=== PATIENT | female | born 1930 | race Caucasian/White ===

== ENCOUNTER 2018-01-19 17:13 | Inpatient (IN) | payer OTHER, MEDICARE ==
[~2018-01-19] VITALS: Ht 157.5 cm; Wt 53.3 kg
[2018-01-19 18:23] LABS: HEMATOCRIT 33.6 % (37-47); HEMOGLOBIN 11.6 g/dL (12.0-16.0); MEAN CELL VOLUME 80.4 fL (80-100); MEAN CORPUSCULAR HEMOGLOBIN 27.8 pg (25-34); MEAN CORPUSCULAR HGB CONC 34.5 g/dl (32-36); MEAN PLATELET VOLUME 8.6 fL (7.4-10.4); PLATELET COUNT 456 K/uL (130-400); RED CELL DISTRIBUTION WIDTH CV 15.2 % (11.5-14.5); RED CELL DISTRIBUTION WIDTH SD 44.8 fL (36.4-46.3)
[2018-01-19 18:36] LABS: PTT PATIENT 27.9 SECONDS (21.0-31.0)
[2018-01-19 18:45] LABS: CALCIUM 9.3 mg/dl (8.5-10.1); POTASSIUM 3.7 mmol/L (3.5-5.1)
--- NOTE | 2018-01-19 19:16 | DIAGNOSTIC IMAGING REPORT ---
CHEST 2 VIEWS ROUTINE CLINICAL HISTORY: Cough. Evaluate for pneumonia. COMPARISON STUDY: No previous studies for comparison. FINDINGS: Mild lung hyperexpansion is noted. There is suspected underlying emphysema. No pneumothorax is present. There are probable trace bilateral pleural effusions. There are mild bibasilar opacities with bibasilar interstitial thickening. Cardiac size is unremarkable. Mediastinal contours are unremarkable. IMPRESSION: 1. Mild bibasilar opacities and lower lung interstitial thickening which are age indeterminate. 2. Suspected emphysema. 3. Probable trace bilateral pleural effusions. Electronically signed by: Aravind Madrid M.D. 01/19/2018 7:14 PM Dictated Date/Time: 01/19/2018 7:13 PM
[2018-01-19 19:25] LABS: BASO % 0.3 %; BASO ABS # 0.04 K/uL (0-0.2); EOS % 0.9 %; EOS ABS # 0.11 K/uL (0-0.5); LYMPH % 9.1 %; LYMPH ABS # 1.15 K/uL (1.2-3.4); MONO % 8.9 %; MONO ABS # 1.13 K/uL (0.11-0.59); NEUT % 76.9 %; NEUT ABS # 9.77 K/uL (1.4-6.5)
[2018-01-19] MEDS ORDERED: LEVOFLOXACIN 250 MG TAB PO ONE (20:15)
--- NOTE | 2018-01-19 21:30 | History and Physical ---
History & Physical Date & Time of Service: Jan 19, 2018 at 21:30 Chief Complaint: Sob, Weakness, Loss Of Appetite- Referred Primary Care Physician: Mile Bird M.D. History of Present Illness Source: patient, family Patient is an 87-year-old female with past medical history of left breast cancer S/P lumpectomy and radiation therapy, CKD III, asthma, hypertension, hyperlipidemia, moderate aortic stenosis, overactive bladder and other problems presents with history of shortness of breath on exertion, dry cough, sore throat , intermittent chest tightness and dizziness since 2 weeks duration. Patient states she was diagnosed to have flu 1 week ago and has completed Tamiflu therapy 2 days ago. She reports having to use her inhaler more frequently since 2 weeks. Describes chest tightness in the epigastric region which is intermittent, increases with exertion, deep breathing, coughing, nonradiating and improves with rest. Currently denies any chest pain. She reports chest tightness has been going on intermittently since at least last 10 years. Also reports associated low-grade fever, decreased appetite, weakness since 2 weeks. Denies any history of pedal edema, diaphoresis, wheezing, hemoptysis, chills, nausea, vomiting, abdominal pain, blood in stools, diarrhea, dysuria, hematuria , recent change in medications. Past Medical/Surgical History Past medical history of left breast cancer S/P lumpectomy and radiation therapy , CKD III, asthma, hypertension, hyperlipidemia, moderate aortic stenosis, overactive bladder Past Surgical History: Left breast Lumpectomy Family History Mother: Lymphoma Social History Smoking Status: Former Smoker Alcohol Use: socially Drug Use: none Allergies Coded Allergies: No Known Allergies (Unverified , 01/19/18) Home Medications Scheduled Albuterol Hfa (Ventolin Hfa), 2-4 PUFFS INH Q6H Aspirin (Aspirin EC Low Dose), 81 MG PO DAILY Atorvastatin (Lipitor), 40 MG PO DAILY Calcium Carbonate (Tums), 500 MG PO BID Fluticasone Prop/Salmeterol (Advair Diskus 250-50 Mcg/Dose), 1 PUFF INH BID [place]-3 Fatty Acids (Fish Oil), 1,000 MG PO BID Oxybutynin Chloride (Ditropan Xl), 1 TAB PO DAILY Triamterene/Hctz (Maxzide 75MG/50MG), 0.5 TAB PO DAILY Review of Systems See HPI for pertinent positives & negatives. A total of 10 systems reviewed and were otherwise negative. Physical Exam Vital Signs Date Time Temp Pulse Resp B/P (MAP) Pulse Ox O2 Delivery O2 Flow Rate FiO2 01/19/18 20:36 97 142/84 92 149/92 105 121/70 01/19/18 20:18 20 144/57 01/19/18 18:44 92 Room Air 01/19/18 17:34 37.0 98 20 124/71 92 Room Air General Appearance: no apparent distress, + thin Head: normocephalic, atraumatic Eyes: normal inspection, PERRL, EOMI, sclerae normal ENT: normal ENT inspection, hearing grossly normal Neck: supple, trachea midline Respiratory/Chest: lungs clear, normal breath sounds, no respiratory distress, no accessory muscle use, + pertinent finding (Mild epigastric tenderness) Cardiovascular: regular rate, rhythm, no edema, + tachycardia, + systolic murmur Abdomen/GI: normal bowel sounds, soft, + tenderness (Mild epigastric tenderness ) Back: normal inspection Extremities/Musculoskelatal: normal inspection, no pedal edema Neurologic/Psych: lean manager II-XII nml as tested, no motor/sensory deficits, alert, normal mood/affect, oriented x 3 Skin: normal color, warm/dry Diagnostics Laboratory Results Results Past 24 Hours Test 01/19/18 18:07 01/19/18 20:39 Range/Units White Blood Count 12.70 4.8-10.8 K/uL Red Blood Count 4.18 4.2-5.4 M/uL Hemoglobin 11.6 12.0-16.0 g/dL Hematocrit 33.6 37-47 % Mean Corpuscular Volume 80.4 80-100 fL Mean Corpuscular Hemoglobin 27.8 25-34 pg Mean Corpuscular Hemoglobin Concent 34.5 32-36 g/dl Platelet Count 456 130-400 K/uL Mean Platelet Volume 8.6 7.4-10.4 fL Neutrophils (%) (Auto) 76.9 % Lymphocytes (%) (Auto) 9.1 % Monocytes (%) (Auto) 8.9 % Eosinophils (%) (Auto) 0.9 % Basophils (%) (Auto) 0.3 % Neutrophils # (Auto) 9.77 1.4-6.5 K/uL Lymphocytes # (Auto) 1.15 1.2-3.4 K/uL Monocytes # (Auto) 1.13 0.11-0.59 K/uL Eosinophils # (Auto) 0.11 0-0.5 K/uL Basophils # (Auto) 0.04 0-0.2 K/uL RDW Standard Deviation 44.8 36.4-46.3 fL RDW Coefficient of Variation 15.2 11.5-14.5 % Immature Granulocyte % (Auto) 3.9 % Immature Granulocyte # (Auto) 0.50 0.00-0.02 K/uL Red Blood Cell Morphology Unremarkable Prothrombin Time 10.3 9.0-12.0 SECONDS Prothromb Time International Ratio 1.0 0.9-1.1 Activated Partial Thromboplast Time 27.9 21.0-31.0 SECONDS Partial Thromboplastin Ratio 1.1 Sodium Level 127 136-145 mmol/L Potassium Level 3.7 3.5-5.1 mmol/L Chloride Level 92 98-107 mmol/L Carbon Dioxide Level 30 21-32 mmol/L Anion Gap 5.0 3-11 mmol/L Blood Urea Nitrogen 27 7-18 mg/dl Creatinine 1.00 0.60-1.20 mg/dl Est Creatinine Clear Calc Drug Dose 31.4 ml/min Estimated GFR () 58.7 Estimated GFR (Non- 50.6 BUN/Creatinine Ratio 27.1 10-20 Random Glucose 130 70-99 mg/dl Calcium Level 9.3 8.5-10.1 mg/dl Thyroid Stimulating Hormone (TSH) 1.030 0.300-4.500 uIu/ml Free Thyroxine 1.56 0.80-1.60 ng/dl Troponin I < 0.015 0-0.045 ng/ml Microbiology Results 01/19/18 Blood Culture, Received Pending 01/19/18 Blood Culture, Received Pending 01/19/18 Group A Streptococcus Screen - Final, Resulted SPECIMEN NEGATIVE FOR GROUP A BETA ST... 01/19/18 Group A Streptococcus Screen (RASHAD), Resulted Pending Diagnostic Radiology CXR: 1. Mild bibasilar opacities and lower lung interstitial thickening which are age indeterminate. 2. Suspected emphysema. 3. Probable trace bilateral pleural effusions. EKG EKG: sinus rhythm, PVC, aberration Impression Assessment and Plan Community Acquired Pneumonia: Recently treated for Flu Start on Levaquin Oxygen support, Nebs PRN Blood cultures Strep Screen Negative CXR shows: Mild bibasilar opacities and trace B/L pleural effusion Atypical Chest Pain: R/O ACS Risk factors: H/O HTN, HLP, Former tobacco use disorder Initial troponin:Negative EKG shows:Sinus, PVC, aberrations CXR: bibasilar opacities Trend serial cardiac enzymes, repeat EKG, fasting lipid panel in AM Continue Aspirin, statins Check ECHO TSH: normal Hyponatremia: Likely secondary to dehydration gentle IV fluids hold diuretics monitor sodium levels H/O Asthma: No signs of exacerbation on exam continue home inhalers Nebs PRN H/O left breast cancer S/P lumpectomy and radiation therapy CKD III: Cr at baseline monitor renal function Hypertension: Resume diuretics as able monitor Hyperlipidemia: Continue statins H/O moderate aortic stenosis: check ECHO DVT Px: Heparin SQ Code Status: DNI/DNR as per my discussion with patient and family Disposition: Monitor in Telemetry Resuscitation Status VTE Prophylaxis Will order VTE Prophylaxis: Yes
[2018-01-19] MEDS ORDERED: NITROGLYCERIN 0.4 MG SL PER TAB CHARGE SL PRN (22:00)
[2018-01-19] MEDS ORDERED: ONDANSETRON INJ 2 MG/ML 2 ML VIAL IV PRN (22:00)
[2018-01-19] MEDS ORDERED: SODIUM CHLORIDE 0.9% 1000ML 1,000 ML IV ONE (22:00)
[2018-01-19] MEDS ORDERED: ACETAMINOPHEN 325 MG TAB PO PRN (22:00)
[2018-01-19] MEDS ORDERED: LEVALBUTEROL 0.63MG/3 ML NEB INH PRN (22:15)
[2018-01-19] MEDS ORDERED: ALBUT/IPRATROP 3MG/0.5MG NEB 3 ML VIAL INH PRN (22:15)
[2018-01-19] MEDS ORDERED: LEVOFLOXACIN CONSULT ACTIVE PRN (22:15)
[2018-01-19] MEDS ORDERED: ADVIN25050 INH (22:16)
[2018-01-19] MEDS ORDERED: OMEG10002 PO (22:16)
[2018-01-19] MEDS ORDERED: TRIA75TA53 PO (22:16)
[2018-01-19] MEDS ORDERED: CALC500C3 PO (22:16)
[2018-01-19] MEDS ORDERED: OXYB5TAB21 PO (22:16)
[2018-01-19] MEDS ORDERED: ASPI-320 PO (22:16)
[2018-01-19] MEDS ORDERED: VNTHFA/IN INH (22:16)
[2018-01-19] MEDS ORDERED: LPT40 PO (22:16)
[2018-01-19 23:36] VITALS: BP 161/76; PULSE 91; TEMP 37.4; O2SAT 92; Ht 157.5 cm; Wt 53.3 kg
[2018-01-20] VITALS (8 sets, daily range): BP systolic 138–164; BP diastolic 68–84; PULSE 79–87; TEMP 36.8–37.1; O2SAT 94–96
--- NOTE | 2018-01-20 00:12 | EMERGENCY ROOM VISIT NOTE ---
History Report prepared by Maya: May Magallon Under the Supervision of: Dr. Pedro Bill M.D. First contact with patient: 17:37 Chief Complaint: RESPIRATORY PROBLEMS Stated Complaint: SOB, WEAKNESS, LOSS OF APPETITE- REFERRED History of Present Illness The patient is an 87 year old female who presents to the Emergency Room with complaints of persistent SOB starting 2 weeks ago. The patient had the flu several weeks ago and was on Tamiflu. Her symptoms were improved, but she started feeling sick again 2 weeks ago. She reports a sore throat, lightheadedness, and weakness. She has been feeling weak since having the flu. She reports a dry cough which is not persistent. Her chest feels tight and she has pain with deep breaths. Her temperature has been around 99 recently. She has had intermittent nausea. She denies any urinary symptoms, abdominal pain, vomiting, diarrhea, black or bloody stools. She has been eating well, but does think that she could be drinking more. She states that she has had chest tightness intermittently for about a month. She is noted some decreased exercise tolerance and worsening of her chest pain with exertion. Source of History: patient Onset: 2 weeks ago Position: other (breathing) Quality: other (SOB) Timing: other (persistent) Associated Symptoms: + sorethroat, + cough, + chest pain, + nausea, + weakness, No vomiting, No abdominal pain, No melena, No hematochezia, No diarrhea, No urinary symptoms Note: Pt reports lightheadedness. Review of Systems See HPI for pertinent positives & negatives. A total of 10 systems reviewed and were otherwise negative. Past Medical & Surgical Medical Problems: (1) Asthma (2) Breast cancer (3) Diverticulitis (4) Hypertension (5) Shortness of breath Family History Cancer Social History Smoking Status: Never Smoker Marital Status: Occupation Status: retired Current/Historical Medications Scheduled Albuterol Hfa (Ventolin Hfa), 2-4 PUFFS INH Q6H Aspirin (Aspirin EC Low Dose), 81 MG PO DAILY Atorvastatin (Lipitor), 40 MG PO DAILY Calcium Carbonate (Tums), 500 MG PO BID Fluticasone Prop/Salmeterol (Advair Diskus 250-50 Mcg/Dose), 1 PUFF INH BID [place]-3 Fatty Acids (Fish Oil), 1,000 MG PO BID Oxybutynin Chloride (Ditropan Xl), 1 TAB PO DAILY Triamterene/Hctz (Maxzide 75MG/50MG), 0.5 TAB PO DAILY Allergies Coded Allergies: No Known Allergies (Unverified , 01/19/18) Physical Exam Vital Signs Date Time Temp Pulse Resp B/P (MAP) Pulse Ox O2 Delivery O2 Flow Rate FiO2 01/19/18 21:39 102 20 144/65 92 Room Air 01/19/18 20:36 97 142/84 92 149/92 105 121/70 01/19/18 20:18 20 144/57 01/19/18 19:00 93 Room Air 01/19/18 18:44 92 Room Air 01/19/18 17:34 37.0 98 20 124/71 92 Room Air Physical Exam Constitutional: Vital signs reviewed. Eyes: Pupils are equal round reactive to light. Conjunctiva are noninjected. ENT: Erythema to the posterior oropharynx without exudate. Mucous membranes are slightly dry. Neck supple without meningeal signs. Respiratory: Bibasilar crackles. Breath sounds are equal bilaterally. Cardiovascular: Regular rate and rhythm. No rubs or gallops. GI: Soft, nondistended and nontender. Bowel sounds are present. Musculoskeletal: No peripheral edema. No lower extremity tenderness. Integumentary: No cyanosis. Neurological: The patient is awake and alert. No focal deficits. Psychiatric: Normal affect. Medical Decision & Procedures ER Provider Diagnostic Interpretation: X-ray results as stated below per interpretation by me and the radiologist: CHEST 2 VIEWS ROUTINE CLINICAL HISTORY: Cough. Evaluate for pneumonia. COMPARISON STUDY: No previous studies for comparison. FINDINGS: Mild lung hyperexpansion is noted. There is suspected underlying emphysema. No pneumothorax is present. There are probable trace bilateral pleural effusions. There are mild bibasilar opacities with bibasilar interstitial thickening. Cardiac size is unremarkable. Mediastinal contours are unremarkable. IMPRESSION: 1. Mild bibasilar opacities and lower lung interstitial thickening which are age indeterminate. 2. Suspected emphysema. 3. Probable trace bilateral pleural effusions. Electronically signed by: Aravind Madrid M.D. 01/19/2018 7:14 PM Dictated Date/Time: 01/19/2018 7:13 PM Laboratory Results 01/19/18 18:07 Red Blood Count 4.18, Mean Corpuscular Volume 80.4, Mean Corpuscular Hemoglobin 27.8, Mean Corpuscular Hemoglobin Concent 34.5, Mean Platelet Volume 8.6, Neutrophils (%) (Auto) 76.9, Lymphocytes (%) (Auto) 9.1, Monocytes (%) (Auto) 8.9, Eosinophils (%) (Auto) 0.9, Basophils (%) (Auto) 0.3, Neutrophils # (Auto) 9.77, Lymphocytes # (Auto) 1.15, Monocytes # (Auto) 1.13, Eosinophils # (Auto) 0.11, Basophils # (Auto) 0.04 01/19/18 18:07 Test 01/19/18 18:07 01/19/18 20:39 White Blood Count 12.70 K/uL (4.8-10.8) Red Blood Count 4.18 M/uL (4.2-5.4) Hemoglobin 11.6 g/dL (12.0-16.0) Hematocrit 33.6 % (37-47) Mean Corpuscular Volume 80.4 fL (80-100) Mean Corpuscular Hemoglobin 27.8 pg (25-34) Mean Corpuscular Hemoglobin Concent 34.5 g/dl (32-36) Platelet Count 456 K/uL (130-400) Mean Platelet Volume 8.6 fL (7.4-10.4) Neutrophils (%) (Auto) 76.9 % Lymphocytes (%) (Auto) 9.1 % Monocytes (%) (Auto) 8.9 % Eosinophils (%) (Auto) 0.9 % Basophils (%) (Auto) 0.3 % Neutrophils # (Auto) 9.77 K/uL (1.4-6.5) Lymphocytes # (Auto) 1.15 K/uL (1.2-3.4) Monocytes # (Auto) 1.13 K/uL (0.11-0.59) Eosinophils # (Auto) 0.11 K/uL (0-0.5) Basophils # (Auto) 0.04 K/uL (0-0.2) RDW Standard Deviation 44.8 fL (36.4-46.3) RDW Coefficient of Variation 15.2 % (11.5-14.5) Immature Granulocyte % (Auto) 3.9 % Immature Granulocyte # (Auto) 0.50 K/uL (0.00-0.02) Red Blood Cell Morphology Unremarkable Prothrombin Time 10.3 SECONDS (9.0-12.0) Prothromb Time International Ratio 1.0 (0.9-1.1) Activated Partial Thromboplast Time 27.9 SECONDS (21.0-31.0) Partial Thromboplastin Ratio 1.1 Anion Gap 5.0 mmol/L (3-11) Est Creatinine Clear Calc Drug Dose 31.4 ml/min Estimated GFR () 58.7 Estimated GFR (Non- 50.6 BUN/Creatinine Ratio 27.1 (10-20) Calcium Level 9.3 mg/dl (8.5-10.1) Thyroid Stimulating Hormone (TSH) 1.030 uIu/ml (0.300-4.500) Free Thyroxine 1.56 ng/dl (0.80-1.60) Troponin I < 0.015 ng/ml (0-0.045) Laboratory results as reviewed by me. Medications Administered Medications (Trade) Dose Ordered Sig/Godfrey Route Start Time Stop Time Status Last Admin Dose Admin Levofloxacin (Levaquin Tab) 500 mg NOW ONCE PO 01/19/18 20:15 01/19/18 20:16 DC 01/19/18 20:18 500 MG Sodium Chloride 1,000 ml @ 50 mls/hr Q20H ONCE IV 01/19/18 22:00 01/20/18 17:59 01/19/18 23:18 50 MLS/HR ECG Per My Interpretation Indication: chest pain Rate (beats per minute): 89 Rhythm: sinus rhythm Findings: PVC, other (no ST elevation) ED Course 1801: The patient was evaluated in room C2B. A complete history and physical exam was performed. 1954: I reevaluated the patient. I discussed the test results with her. She would like to go home. 2014: Levofloxacin 500 mg PO. 2016: I reevaluated the patient. After further discussion, she explains that she has been having intermittent chest pain and decreased exercise tolerance for a month before she got sick. She is having chest tightness and burning with exerting herself. The troponin had an error on POC. Lab troponin was ordered. I discussed the results with her. She verbalized agreement of the treatment plan. She will be evaluated for further management. 2115: I discussed the patient's case with Vinay Calvo hospitalist. He will evaluate the patient for further management. Medical Decision This is an 87-year-old female presents with weakness, cough and chest discomfort. Differential diagnosis includes pneumonia, bronchitis, dehydration , unstable angina, VA. I did perform a limited focused review of portions of the patient's old chart on the electronic medical record. The patient has had no recent pertinent visits to this hospital. I did evaluate the patient as noted above. IV access was established. The patient was placed on a continuous programs director. I did order and personally review the patient's 12-lead EKG and chest x-ray as described above. Her chest x-ray demonstrates bibasilar infiltrate. She does have crackles on examination. I suspect that she has bilateral pneumonia. I did treat her with Levaquin. I did order and review the patient's blood work as noted in the electronic medical record. Troponin is negative. Her white blood cell count is elevated. She does have hyponatremia. Her last sodium based on the [employer] system was 132 on January 14. I did discuss the test results with the patient and her family. I did recommend hospitalization given her exertional chest pain, bilateral pneumonia and hyponatremia. I did discuss the case with the hospitalist and supervisor case loading. Medication Reconcilliation Current Medication List: was personally reviewed by me Blood Pressure Screening Patient's blood pressure: Normal blood pressure Blood pressure disposition: Did not require urgent referral Consults Time Called: 2111 Consulting Physician[facility] Returned Call: 2115 I discussed the patient's case with him. He will evaluate the patient for further management. Impression Primary Impression: Pneumonia of both lower lobes Additional Impressions: Hyponatremia Exertional chest pain Scribe Attestation The scribe's documentation has been prepared under my direct and personally reviewed by me in its entirety. I confirm that the note above accurately reflects all work, treatment, procedures, and medical decision making performed by me. Departure Information Dispostion Being Evaluated By Hospitalist Referrals Mile Bird M.D. (PCP) Patient Instructions [facility] Problem Qualifiers Primary Impression: Pneumonia of both lower lobes Pneumonia type: due to unspecified organism Qualified Codes: J18.1 - Lobar pneumonia, unspecified organism
[2018-01-20] MEDS: HEPARIN SOD 5000 UNIT/0.5 ML CARP SQ SCH ×3 (05:42→20:31)
[2018-01-20 07:01] LABS: HEMATOCRIT 29.2 % (37-47); HEMOGLOBIN 10.2 g/dL (12.0-16.0); MEAN CELL VOLUME 79.3 fL (80-100); MEAN CORPUSCULAR HEMOGLOBIN 27.7 pg (25-34); MEAN CORPUSCULAR HGB CONC 34.9 g/dl (32-36); MEAN PLATELET VOLUME 8.6 fL (7.4-10.4); PLATELET COUNT 394 K/uL (130-400); RED CELL DISTRIBUTION WIDTH CV 15.2 % (11.5-14.5); RED CELL DISTRIBUTION WIDTH SD 44.3 fL (36.4-46.3); WHITE BLOOD COUNT 12.29 K/uL (4.8-10.8)
[2018-01-20 07:37] LABS: BLOOD UREA NITROGEN 18 mg/dl (7-18); CALCIUM 8.7 mg/dl (8.5-10.1); CARBON DIOXIDE 28 mmol/L (21-32); CHOLESTEROL 111 mg/dl (0-200); CREATININE 0.82 mg/dl (0.60-1.20); GLUCOSE 100 mg/dl (70-99); POTASSIUM 3.6 mmol/L (3.5-5.1); SODIUM 126 mmol/L (136-145)
[2018-01-20 07:39] LABS: LDL CHOLESTEROL CALCULATED 44 mg/dl
[2018-01-20] MEDS: FLUTICASONE/SALMETEROL 250/50 (ADVAIR) 14 PUFF/1 INHALER INH SCH ×2 (08:07→20:32)
[2018-01-20] MEDS: ASPIRIN 81 MG ECTAB PO SCH (08:07)
[2018-01-20] MEDS: ATORVASTATIN 40 MG TAB PO SCH (08:07)
[2018-01-20 08:36] LABS: HEMOGLOBIN A1C 6.4 % (4.5-5.6)
[2018-01-20] MEDS ORDERED: MAGNESIUM SULFATE 1GM / D5W 1 GM in PREMIXED IN D5W 100 ML IV ONE (10:00)
--- NOTE | 2018-01-20 14:07 | Progress Note ---
Medicine Progress Note Date & Time of Visit: Jan 20, 2018 at 12:42. Subjective Pt was seen and examined Lying in bed with no distress Pt said that she feels much better She said that she continue to cough She said that her SOB mostly occurs with exertion Denies any Chest pain, palpitation, dizziness and SOB Objective Last 8 Hrs Date Time Temp Pulse Resp B/P (MAP) Pulse Ox O2 Delivery O2 Flow Rate FiO2 01/20/18 08:00 94 Room Air 01/20/18 07:44 37.1 80 16 138/73 (94) 94 Room Air Physical Exam: General- No acute distress Head- atraumatic Eyes- PERRL, EOMI ENT- oropharynx clear Neck- supple, no JVD Lungs- No crackles Heart- regular rhythm + murmur, Abdomen- normal bowel sounds, soft Extremities- no calf tenderness Neuro- alert, oriented x 3; PERRL, EOMI Skin- warm & dry Laboratory Results: Last 24 Hours Test 01/19/18 18:07 01/19/18 20:39 01/20/18 06:20 White Blood Count 12.70 K/uL 12.29 K/uL Red Blood Count 4.18 M/uL 3.68 M/uL Hemoglobin 11.6 g/dL 10.2 g/dL Hematocrit 33.6 % 29.2 % Mean Corpuscular Volume 80.4 fL 79.3 fL Mean Corpuscular Hemoglobin 27.8 pg 27.7 pg Mean Corpuscular Hemoglobin Concent 34.5 g/dl 34.9 g/dl Platelet Count 456 K/uL 394 K/uL Mean Platelet Volume 8.6 fL 8.6 fL Neutrophils (%) (Auto) 76.9 % Lymphocytes (%) (Auto) 9.1 % Monocytes (%) (Auto) 8.9 % Eosinophils (%) (Auto) 0.9 % Basophils (%) (Auto) 0.3 % Neutrophils # (Auto) 9.77 K/uL Lymphocytes # (Auto) 1.15 K/uL Monocytes # (Auto) 1.13 K/uL Eosinophils # (Auto) 0.11 K/uL Basophils # (Auto) 0.04 K/uL RDW Standard Deviation 44.8 fL 44.3 fL RDW Coefficient of Variation 15.2 % 15.2 % Immature Granulocyte % (Auto) 3.9 % Immature Granulocyte # (Auto) 0.50 K/uL Red Blood Cell Morphology Unremarkable Prothrombin Time 10.3 SECONDS Prothromb Time International Ratio 1.0 Activated Partial Thromboplast Time 27.9 SECONDS Partial Thromboplastin Ratio 1.1 Sodium Level 127 mmol/L 126 mmol/L Potassium Level 3.7 mmol/L 3.6 mmol/L Chloride Level 92 mmol/L 91 mmol/L Carbon Dioxide Level 30 mmol/L 28 mmol/L Anion Gap 5.0 mmol/L 7.0 mmol/L Blood Urea Nitrogen 27 mg/dl 18 mg/dl Creatinine 1.00 mg/dl 0.82 mg/dl Est Creatinine Clear Calc Drug Dose 31.4 ml/min 38.2 ml/min Estimated GFR () 58.7 74.6 Estimated GFR (Non- 50.6 64.3 BUN/Creatinine Ratio 27.1 21.6 Random Glucose 130 mg/dl 100 mg/dl Calcium Level 9.3 mg/dl 8.7 mg/dl Thyroid Stimulating Hormone (TSH) 1.030 uIu/ml Free Thyroxine 1.56 ng/dl Troponin I < 0.015 ng/ml < 0.015 ng/ml Estimated Average Glucose 137 mg/dl Hemoglobin A1c 6.4 % Magnesium Level 1.6 mg/dl Triglycerides Level 60 mg/dl Cholesterol Level 111 mg/dl HDL Cholesterol 55 mg/dl LDL Cholesterol, Calculated 44 mg/dl VLDL Cholesterol, Calculated 12 mg/dl Cholesterol/HDL Ratio 2.0 Date/Time Source Procedure Growth Status 01/19/18 18:26 Blood Blood Culture Pending Received 01/19/18 18:25 Blood Blood Culture Pending Received 01/19/18 16:07 Throat Group A Streptococcus Screen - Final SPECIMEN NEGATIVE FOR GROUP A BETA ST... Resulted 01/19/18 16:07 Throat Group A Streptococcus Screen (RASHAD) - Preliminary NO BETA STREP ISOLATED TO DATE. Resulted Assessment & Plan Dyspnea Mostly due to community acquired pneumonia: CXR showed mild bibasilar opacities and lower lung interstitial thickening with probably trace bilateral pleural effusions Continue Levaquin daily Oxygen support, Nebs PRN Blood cultures pending Strep Screen Negative Chest Pain Pleuritic in nature R/O ACS Risk factors: H/O HTN, HLP, Former tobacco use disorder Troponinx2 Negative EKG showed no ischemic changes CXR showed bibasilar opacities Continue Aspirin, statins ECHO pending Hyponatremia: Na 126 Likely secondary to dehydration Continue IV fluids Continue to hold diuretics monitor sodium levels Asthma No signs of exacerbation on exam continue home inhalers Nebs PRN H/O left breast cancer S/P lumpectomy and radiation therapy CKD III Cr at baseline monitor renal function Hypertension: BP stable Hold Maxzide for now Will resume in am monitor BP Hyperlipidemia Chol 111, LDL 44 and HDL 55 LDL at goal Continue statin H/O moderate aortic stenosis ECHO Pending DVT Px: Heparin SQ Code Status DNI/DNR Disposition: Monitor in Telemetry Current Inpatient Medications: Current Inpatient Medications Medications (Trade) Dose Ordered Sig/Godfrey Route Start Time Stop Time Status Last Admin Dose Admin Heparin Sodium (Porcine) (Heparin Sq 5000 Unit/0.5ml) 5,000 unit Q8 SQ 01/20/18 06:00 02/19/18 05:59 01/20/18 05:42 5,000 UNIT Sodium Chloride 1,000 ml @ 50 mls/hr Q20H ONCE IV 01/19/18 22:00 01/20/18 17:59 01/19/18 23:18 50 MLS/HR Acetaminophen (Tylenol Tab) 650 mg Q4H PRN PO 01/19/18 22:00 02/18/18 21:59 Ondansetron HCl (Zofran Inj) 4 mg Q6H PRN IV 01/19/18 22:00 02/18/18 21:59 Nitroglycerin (Nitrostat Tab) 0.4 mg UD PRN SL 01/19/18 22:00 02/18/18 21:59 Levofloxacin (Consult) 1 ea UD PRN N/A 01/19/18 22:15 02/18/18 22:14 Levalbuterol (Xopenex 0.63 Mg/ 3 Ml Neb) 0.63 mg Q6R PRN INH 01/19/18 22:15 02/18/18 22:14 Aspirin (Ecotrin Tab) 81 mg DAILY PO 01/20/18 09:00 02/19/18 08:59 01/20/18 08:07 81 MG Atorvastatin Calcium (Lipitor Tab) 40 mg DAILY PO 01/20/18 09:00 02/19/18 08:59 01/20/18 08:07 40 MG Salmeterol Xinafoate/ Fluticasone (Advair Diskus 250/50 Inh) 1 puff BID INH 01/20/18 09:00 02/19/18 08:59 01/20/18 08:07 1 PUFF Levofloxacin (Levaquin Tab) 750 mg Q2D@1100 PO 01/21/18 11:00 01/28/18 10:59
--- NOTE | 2018-01-20 15:17 | ECHOCARDIOGRAM REPORT ---
*NOTICE TO RECEIVING REPUBLICAN AGENCY This information is strictly Confidential and protected under [place] law. [place] law prohibits you from making any further disclosure of this information unless further disclosure is expressly permitted by the written consent of the person to whom it pertains or is authorized by law. A general authorization for the release of medical or other information is not sufficient for this purpose. Hospital accepts no responsibility if the information is made available to any other person, INCLUDING THE PATIENT. Interpretation Summary * Name: SHNATE ROJAS Study Date: 01/20/2018 06:23 AM BP: 138/73 mmHg * Patient Location: [facility]\S\N279\S\1 HR: 93 * : 1930 (M/d/yyyy) Gender: Female Height: 62 in * Age: 87 yrs Ethnicity: [place] Weight: 119 lb * Ordering Physician: Sander Michel * Referring Physician: Mile Bird * Performed By: Rena Golden RDCS * * Reason For Study: CHEST PAIN * BSA: 1.5 m2 * -- Conclusions -- * The left ventricle is normal in size. * Left ventricular systolic function is normal. * Ejection Fraction = 65-70%. * The right ventricular systolic function is normal. * The left atrial size is normal. * Right atrial size is normal. * Grade I diastolic dysfunction, (abnormal relaxation pattern). * There is moderate mitral regurgitation. * The aortic valve is sclerotic. * Moderate valvular aortic stenosis. Procedure Details * A complete two-dimensional transthoracic echocardiogram was performed (2D, M-mode, Doppler and color flow Doppler). Left Ventricle * The left ventricle is normal in size. * There is normal left ventricular wall thickness. * Ejection Fraction = 65-70%. * Left ventricular systolic function is normal. * The left ventricular wall motion is normal. Right Ventricle * The right ventricle is normal size. * The right ventricular systolic function is normal. Atria * The left atrial size is normal. * Right atrial size is normal. * The interatrial septum is intact with no evidence for an atrial septal defect. Mitral Valve * The mitral valve leaflets appear thickened, but open well. * There is moderate mitral regurgitation. Tricuspid Valve * The tricuspid valve anatomy is normal. * Significant tricuspid regurgitation is absent. Aortic Valve * The aortic valve is sclerotic. * Moderate valvular aortic stenosis. * There is no significant aortic regurgitation. Great Vessels * The aortic root and proximal ascending aorta are normal sized. Pericardium/Pleural * There is no pericardial effusion. Left Ventricular Diastolic Function * Grade I diastolic dysfunction, (abnormal relaxation pattern). MMode 2D Measurements and Calculations IVSd 1.4 cm IVSs 2.0 cm LVIDd 3.4 cm LVIDs 2.1 cm LVPWd 1.6 cm LVPWs 2.2 cm IVS/LVPW 0.90 FS 38.7 % EDV(Teich) 48.1 ml ESV(Teich) 14.3 ml EF(Teich) 70.2 % EDV(cubed) 40.0 ml ESV(cubed) 9.2 ml EF(cubed) 77.0 % % IVS thick 40.3 % % LVPW thick 38.2 % LV mass(C)d 187.5 grams LV mass(C)dI 122.3 grams/m\S\2 LV mass(C)s 198.2 grams LV mass(C)sI 129.3 grams/m\S\2 SV(Teich) 33.8 ml SI(Teich) 22.0 ml/m\S\2 SV(cubed) 30.8 ml SI(cubed) 20.1 ml/m\S\2 Ao root diam 3.0 cm Ao root area 7.3 cm\S\2 LA dimension 3.8 cm LA/Ao 1.3 LVOT diam 2.0 cm LVOT area 3.1 cm\S\2 LVAd ap4 21.5 cm\S\2 LVLd ap4 7.3 cm EDV(MOD-sp4) 53.2 ml EDV(sp4-el) 54.0 ml LVAs ap4 11.5 cm\S\2 LVLs ap4 6.6 cm ESV(MOD-sp4) 20.2 ml ESV(sp4-el) 17.0 ml EF(MOD-sp4) 62.0 % EF(sp4-el) 68.5 % LVAd ap2 15.4 cm\S\2 LVLd ap2 6.2 cm EDV(MOD-sp2) 31.7 ml EDV(sp2-el) 32.8 ml LVAs ap2 8.4 cm\S\2 LVLs ap2 5.2 cm ESV(MOD-sp2) 14.0 ml ESV(sp2-el) 11.6 ml EF(MOD-sp2) 55.7 % EF(sp2-el) 64.5 % LVLd %diff -18.05 % EDV(MOD-bp) 45.0 ml LVLs %diff -26.21 % ESV(MOD-bp) 18.9 ml EF(MOD-bp) 58.0 % SV(MOD-sp4) 33.0 ml SI(MOD-sp4) 21.5 ml/m\S\2 SV(MOD-sp2) 17.7 ml SI(MOD-sp2) 11.5 ml/m\S\2 SV(MOD-bp) 26.1 ml SI(MOD-bp) 17.0 ml/m\S\2 SV(sp4-el) 37.0 ml SI(sp4-el) 24.2 ml/m\S\2 SV(sp2-el) 21.1 ml SI(sp2-el) 13.8 ml/m\S\2 Doppler Measurements and Calculations MV E max jamari 71.7 cm/sec MV A max jamari 131.0 cm/sec MV E/A 0.55 MV dec time 0.31 sec Ao V2 max 263.2 cm/sec Ao max PG 27.7 mmHg Ao max PG (full) 19.6 mmHg Ao V2 mean 183.0 cm/sec Ao mean PG 15.3 mmHg Ao mean PG (full) 10.7 mmHg Ao V2 VTI 56.6 cm LUCIE(I,A) 1.7 cm\S\2 LUCIE(I,D) 1.7 cm\S\2 LUCIE(V,A) 1.7 cm\S\2 LUCIE(V,D) 1.7 cm\S\2 LV V1 max PG 8.1 mmHg LV V1 mean PG 4.6 mmHg LV V1 max 142.4 cm/sec LV V1 mean 100.9 cm/sec LV V1 VTI 30.8 cm SV(Ao) 412.6 ml SI(Ao) 269.2 ml/m\S\2 SV(LVOT) 96.3 ml SI(LVOT) 62.8 ml/m\S\2 TR max jamari 291.4 cm/sec
[2018-01-21 04:34] VITALS: BP 162/84; PULSE 118; TEMP 36.5; O2SAT 91
[2018-01-21] MEDS: HEPARIN SOD 5000 UNIT/0.5 ML CARP SQ SCH ×3 (05:52→21:13)
[2018-01-21] MEDS: FLUTICASONE/SALMETEROL 250/50 (ADVAIR) 14 PUFF/1 INHALER INH SCH ×2 (07:58→21:12)
[2018-01-21] MEDS: ASPIRIN 81 MG ECTAB PO SCH (07:59)
[2018-01-21] MEDS: ATORVASTATIN 40 MG TAB PO SCH (07:59)
[2018-01-21 08:12] VITALS: BP 121/74; PULSE 83; TEMP 36.4; O2SAT 93
[2018-01-21 09:45] LABS: HEMATOCRIT 29.7 % (37-47); HEMOGLOBIN 10.4 g/dL (12.0-16.0); MEAN CELL VOLUME 79.4 fL (80-100); MEAN CORPUSCULAR HEMOGLOBIN 27.8 pg (25-34); MEAN PLATELET VOLUME 8.1 fL (7.4-10.4); PLATELET COUNT 365 K/uL (130-400); RED CELL DISTRIBUTION WIDTH CV 15.1 % (11.5-14.5); RED CELL DISTRIBUTION WIDTH SD 44.1 fL (36.4-46.3); WHITE BLOOD COUNT 10.52 K/uL (4.8-10.8)
[2018-01-21 10:16] LABS: CREATININE 0.82 mg/dl (0.60-1.20); POTASSIUM 3.8 mmol/L (3.5-5.1)
[2018-01-21] MEDS: LEVOFLOXACIN 750 MG TAB PO SCH (10:32)
[2018-01-21 14:28] VITALS: PULSE 86; O2SAT 94
[2018-01-21 16:00] VITALS: BP 111/65; PULSE 94; TEMP 36.7; O2SAT 94
--- NOTE | 2018-01-21 18:40 | Progress Note ---
Medicine Progress Note Date & Time of Visit: Jan 21, 2018 at 18:33. Subjective Pt was seen and examined Lying in bed with no distress Pt said that she feels much better She said that her breathing improve Denies any chest pain, palpitation, dizziness and SOB Objective Last 8 Hrs Date Time Temp Pulse Resp B/P (MAP) Pulse Ox O2 Delivery O2 Flow Rate FiO2 01/21/18 16:00 36.7 94 18 111/65 (80) 94 Room Air 01/21/18 16:00 Room Air 01/21/18 14:28 86 18 94 Room Air 01/21/18 12:00 Room Air Physical Exam: General- No acute distress Head- atraumatic Eyes- PERRL, EOMI ENT- oropharynx clear Neck- supple, no JVD Lungs- No crackles Heart- regular rhythm + murmur, Abdomen- normal bowel sounds, soft Extremities- no calf tenderness Neuro- alert, oriented x 3; PERRL, EOMI Skin- warm & dry Laboratory Results: Last 24 Hours Test 01/21/18 09:32 01/21/18 11:13 White Blood Count 10.52 K/uL Red Blood Count 3.74 M/uL Hemoglobin 10.4 g/dL Hematocrit 29.7 % Mean Corpuscular Volume 79.4 fL Mean Corpuscular Hemoglobin 27.8 pg Mean Corpuscular Hemoglobin Concent 35.0 g/dl RDW Standard Deviation 44.1 fL RDW Coefficient of Variation 15.1 % Platelet Count 365 K/uL Mean Platelet Volume 8.1 fL Sodium Level 124 mmol/L Potassium Level 3.8 mmol/L Chloride Level 89 mmol/L Carbon Dioxide Level 29 mmol/L Anion Gap 6.0 mmol/L Blood Urea Nitrogen 15 mg/dl Creatinine 0.82 mg/dl Est Creatinine Clear Calc Drug Dose 38.2 ml/min Estimated GFR () 74.6 Estimated GFR (Non- 64.3 BUN/Creatinine Ratio 18.5 Random Glucose 155 mg/dl Calcium Level 9.0 mg/dl Osmolality 258 mOsm/kg Magnesium Level 1.7 mg/dl Assessment & Plan Dyspnea Mostly due to community acquired pneumonia: CXR showed mild bibasilar opacities and lower lung interstitial thickening with probably trace bilateral pleural effusions Continue Levaquin daily Oxygen support, Nebs PRN Blood cultures no growth Strep Screen Negative clinically stable Chest Pain Pleuritic in nature R/O ACS Risk factors: H/O HTN, HLP, Former tobacco use disorder Troponinx2 Negative EKG showed no ischemic changes CXR showed bibasilar opacities Continue Aspirin, statins resolved ECHO * The left ventricle is normal in size. * Left ventricular systolic function is normal. * Ejection Fraction = 65-70%. * The right ventricular systolic function is normal. * The left atrial size is normal. * Right atrial size is normal. * Grade I diastolic dysfunction, (abnormal relaxation pattern). * There is moderate mitral regurgitation. * The aortic valve is sclerotic. * Moderate valvular aortic stenosis. Hyponatremia: Na 1dropped to 124 Likely secondary to dehydration Will start on fluid restriction to 1.5 L Continue to hold diuretics Nephrology consult Check BMP, urine Na and osmolarity Asthma No signs of exacerbation on exam continue home inhalers Nebs PRN H/O left breast cancer S/P lumpectomy and radiation therapy CKD III Cr at baseline monitor renal function Hypertension: BP stable Hold Maxzide for now monitor BP Hyperlipidemia Chol 111, LDL 44 and HDL 55 LDL at goal Continue statin H/O moderate aortic stenosis ECHO showed moderate valvular aortic stenosis. Stable DVT Px: Heparin SQ Code Status DNI/DNR Disposition: Monitor in Telemetry Current Inpatient Medications: Current Inpatient Medications Medications (Trade) Dose Ordered Sig/Godfrey Route Start Time Stop Time Status Last Admin Dose Admin Heparin Sodium (Porcine) (Heparin Sq 5000 Unit/0.5ml) 5,000 unit Q8 SQ 01/20/18 06:00 02/19/18 05:59 01/21/18 13:52 5,000 UNIT Acetaminophen (Tylenol Tab) 650 mg Q4H PRN PO 01/19/18 22:00 02/18/18 21:59 Ondansetron HCl (Zofran Inj) 4 mg Q6H PRN IV 01/19/18 22:00 02/18/18 21:59 Nitroglycerin (Nitrostat Tab) 0.4 mg UD PRN SL 01/19/18 22:00 02/18/18 21:59 Levofloxacin (Consult) 1 ea UD PRN N/A 01/19/18 22:15 02/18/18 22:14 Levalbuterol (Xopenex 0.63 Mg/ 3 Ml Neb) 0.63 mg Q6R PRN INH 01/19/18 22:15 02/18/18 22:14 01/21/18 14:27 0.63 MG Aspirin (Ecotrin Tab) 81 mg DAILY PO 01/20/18 09:00 02/19/18 08:59 01/21/18 07:59 81 MG Atorvastatin Calcium (Lipitor Tab) 40 mg DAILY PO 01/20/18 09:00 02/19/18 08:59 01/21/18 07:59 40 MG Salmeterol Xinafoate/ Fluticasone (Advair Diskus 250/50 Inh) 1 puff BID INH 01/20/18 09:00 02/19/18 08:59 01/21/18 07:58 1 PUFF Levofloxacin (Levaquin Tab) 750 mg Q2D@1100 PO 01/21/18 11:00 01/28/18 10:59 01/21/18 10:32 750 MG
[2018-01-21] MEDS ORDERED: MAGNESIUM OXIDE 400 MG TAB PO ONE (19:00)
[2018-01-21 19:07] VITALS: BP 133/77; PULSE 84; TEMP 36.8; O2SAT 94
[2018-01-21 20:44] LABS: CALCIUM 8.8 mg/dl (8.5-10.1); CREATININE 0.94 mg/dl (0.60-1.20); POTASSIUM 4.3 mmol/L (3.5-5.1)
[2018-01-21] MEDS ORDERED: LEVOFLOXACIN 750 MG TAB PO SCH (21:00)
[2018-01-21 23:00] VITALS: BP 153/74; PULSE 80; TEMP 36.9; O2SAT 95
[2018-01-22] VITALS (7 sets, daily range): BP systolic 115–173; BP diastolic 69–94; PULSE 56–98; TEMP 36.5–37.1; O2SAT 92–96
[2018-01-22] MEDS: HEPARIN SOD 5000 UNIT/0.5 ML CARP SQ SCH ×3 (06:15→20:27)
[2018-01-22 07:44] LABS: CALCIUM 8.5 mg/dl (8.5-10.1); CREATININE 0.88 mg/dl (0.60-1.20)
[2018-01-22] MEDS: FLUTICASONE/SALMETEROL 250/50 (ADVAIR) 14 PUFF/1 INHALER INH SCH ×2 (08:02→20:26)
[2018-01-22] MEDS: ASPIRIN 81 MG ECTAB PO SCH (08:02)
[2018-01-22] MEDS: ATORVASTATIN 40 MG TAB PO SCH (08:02)
--- NOTE | 2018-01-22 10:48 | Progress Note ---
Medicine Progress Note Date & Time of Visit: Jan 22, 2018 at 10:43. Subjective Pt was seen and examined Lying in bed with no distress Pt said that she feels fine She said that the neb treatment helped her last night Denies any chest pain, palpitation, dizziness and SOB Objective Last 8 Hrs Date Time Temp Pulse Resp B/P (MAP) Pulse Ox O2 Delivery O2 Flow Rate FiO2 01/22/18 08:00 96 Room Air 01/22/18 07:33 36.6 79 18 145/76 (99) 96 Room Air 01/22/18 05:12 36.6 83 18 150/82 (104) 94 Room Air 01/22/18 04:00 Room Air Physical Exam: General- No acute distress Head- atraumatic Eyes- PERRL, EOMI ENT- oropharynx clear Neck- supple, no JVD Lungs- No crackles Heart- regular rhythm + murmur, Abdomen- normal bowel sounds, soft Extremities- no calf tenderness Neuro- alert, oriented x 3; PERRL, EOMI Skin- warm & dry Laboratory Results: Last 24 Hours Test 01/21/18 11:13 01/21/18 20:11 01/22/18 06:47 Osmolality 258 mOsm/kg Magnesium Level 1.7 mg/dl Sodium Level 124 mmol/L 126 mmol/L Potassium Level 4.3 mmol/L 4.0 mmol/L Chloride Level 88 mmol/L 92 mmol/L Carbon Dioxide Level 28 mmol/L 29 mmol/L Anion Gap 8.0 mmol/L 6.0 mmol/L Blood Urea Nitrogen 19 mg/dl 16 mg/dl Creatinine 0.94 mg/dl 0.88 mg/dl Est Creatinine Clear Calc Drug Dose 33.4 ml/min 35.6 ml/min Estimated GFR () 63.2 68.5 Estimated GFR (Non- 54.5 59.1 BUN/Creatinine Ratio 20.4 18.0 Random Glucose 104 mg/dl 105 mg/dl Calcium Level 8.8 mg/dl 8.5 mg/dl Assessment & Plan Dyspnea Mostly due to community acquired pneumonia: CXR showed mild bibasilar opacities and lower lung interstitial thickening with probably trace bilateral pleural effusions Continue Levaquin daily Oxygen support, Nebs PRN Blood cultures no growth Strep Screen Negative clinically stable Chest Pain Pleuritic in nature R/O ACS Risk factors: H/O HTN, HLP, Former tobacco use disorder Troponinx2 Negative EKG showed no ischemic changes CXR showed bibasilar opacities Continue Aspirin, statins resolved ECHO * The left ventricle is normal in size. * Left ventricular systolic function is normal. * Ejection Fraction = 65-70%. * The right ventricular systolic function is normal. * The left atrial size is normal. * Right atrial size is normal. * Grade I diastolic dysfunction, (abnormal relaxation pattern). * There is moderate mitral regurgitation. * The aortic valve is sclerotic. * Moderate valvular aortic stenosis. Hyponatremia: Na improved to 126 Likely secondary to dehydration Continue fluid restriction to 1.5 L Continue to hold diuretics Nephrology on board Case discussed with Dr. Chavez recommended to continue fluid restriction Starting on salt tablet Continue monitor BMP Asthma No signs of exacerbation on exam continue home inhalers Nebs PRN H/O left breast cancer S/P lumpectomy and radiation therapy CKD III Cr at baseline monitor renal function Hypertension: BP stable Hold Maxzide for now monitor BP Hyperlipidemia Chol 111, LDL 44 and HDL 55 LDL at goal Continue statin H/O moderate aortic stenosis ECHO showed moderate valvular aortic stenosis. Stable DVT Px: Heparin SQ Code Status DNI/DNR Disposition: Will discharge once medically stable Current Inpatient Medications: Current Inpatient Medications Medications (Trade) Dose Ordered Sig/Godfrey Route Start Time Stop Time Status Last Admin Dose Admin Heparin Sodium (Porcine) (Heparin Sq 5000 Unit/0.5ml) 5,000 unit Q8 SQ 01/20/18 06:00 02/19/18 05:59 01/22/18 06:15 5,000 UNIT Acetaminophen (Tylenol Tab) 650 mg Q4H PRN PO 01/19/18 22:00 02/18/18 21:59 Ondansetron HCl (Zofran Inj) 4 mg Q6H PRN IV 01/19/18 22:00 02/18/18 21:59 Nitroglycerin (Nitrostat Tab) 0.4 mg UD PRN SL 01/19/18 22:00 02/18/18 21:59 Levofloxacin (Consult) 1 ea UD PRN N/A 01/19/18 22:15 02/18/18 22:14 Levalbuterol (Xopenex 0.63 Mg/ 3 Ml Neb) 0.63 mg Q6R PRN INH 01/19/18 22:15 02/18/18 22:14 01/21/18 14:27 0.63 MG Aspirin (Ecotrin Tab) 81 mg DAILY PO 01/20/18 09:00 02/19/18 08:59 01/22/18 08:02 81 MG Atorvastatin Calcium (Lipitor Tab) 40 mg DAILY PO 01/20/18 09:00 02/19/18 08:59 01/22/18 08:02 40 MG Salmeterol Xinafoate/ Fluticasone (Advair Diskus 250/50 Inh) 1 puff BID INH 01/20/18 09:00 02/19/18 08:59 01/22/18 08:02 1 PUFF Levofloxacin (Levaquin Tab) 750 mg Q2D@1100 PO 01/21/18 11:00 01/28/18 10:59 01/21/18 10:32 750 MG Sodium Chloride (Sodium Chloride Tab) 1 gm BID PO 01/22/18 09:00 02/21/18 08:59
[2018-01-22] MEDS: SODIUM CHLORIDE 1 GM TAB PO SCH ×2 (11:19→20:26)
--- NOTE | 2018-01-22 14:06 | NEPHROLOGY CONSULTATION ---
DATE OF CONSULTATION: 01/22/2018 ATTENDING OF RECORD: Elkin Villasenor MD REASON FOR CONSULTATION: Hyponatremia. HISTORY OF PRESENT ILLNESS: This is an 87-year-old female who follows with my partner, Dr. Tamera Reyes for CKD stage III and hyponatremia. Has significant history of hyperlipidemia, remote breast cancer status post 1989, left lumpectomy followed by radiation and 5 years of tamoxifen. Moved to [place] from [place] in spring to live with children. The patient does drink a lot of milk and drinks about 30-50 ounces of water daily. Baseline creatinine around 1.1, hyponatremia thought to be secondary to chronic hydrochlorothiazide as well as chronic structural lung disease, has had serum sodium in the mid to high 120s when she had pneumonia last year and treated with salt tablets in the past. She eventually wean her off the salt tablets. Her serum sodium in October of this year was 137, 132 in January of this year, 129 on 01/18/2018 and comes in with a sodium level 127, which has trended down to 124, is now up to 126 this morning. The patient was brought in with generalized weakness, decreased appetite, recently treated for the flu, was started on Levaquin for pneumonia. The patient overall feels good and currently now on oral Levaquin and is on a fluid restriction. PAST MEDICAL HISTORY: Breast cancer, CKD stage III, hyponatremia, hypertension, moderate aortic stenosis, asthma. PAST SURGICAL HISTORY: Lumpectomy for breast cancer in the s. FAMILY HISTORY: Significant for lymphoma. SOCIAL HISTORY: Former smoker, social alcohol, no drugs. Lives with family. CURRENT MEDICATIONS: Levaquin 750 q. 2 days, aspirin 81 mg a day, Lipitor 40 mg a day, Advair inhaler twice a day, heparin 5000 units subQ q. 8, was on low dose Maxzide when coming in. REVIEW OF SYSTEMS: Positive cough. Positive weakness. Positive decreased appetite. No chest pain, no nausea, vomiting, no diarrhea or constipation. No dysuria, hematuria. No rash or itching, no lightheadedness, no blurry vision, no dysphagia. All other review of systems otherwise negative. PHYSICAL EXAMINATION: VITAL SIGNS: Temperature 36.6, pulse 79, respiratory rate 18, blood pressure 145/76, satting 96% on room air. GENERAL: Awake, alert, oriented x3. EYES: No scleral icterus. ENT: Moist mucous membranes. NECK: Supple. PULMONARY: Clear to auscultation. CARDIAC: Regular rate and rhythm. ABDOMEN: Bowel sounds positive, soft, nontender, nondistended. EXTREMITIES: No clubbing, cyanosis or edema. NEUROLOGICAL: Nonfocal. DERMATOLOGIC: No rash or ulcers noted. LABORATORY DATA: Sodium is 126, potassium is 4, chloride is 92, bicarbonate is 29, BUN 16, creatinine 0.88, calcium is 8.5, mag 1.7. White count is 10, H and H 10 and 29, platelet count is 365. INR is 1. IMPRESSION AND PLAN: Hyponatremia. I would not restart the Maxzide, continue the fluid restriction and would add salt tablets 1 gram p.o. b.i.d., Thyroid levels were stable. From my clinical standpoint, goal would be to have a serum sodium above 130. If sodium levels continue to trend up tomorrow, okay with sending home with followup labs as an outpatient with my partner Dr. White. For now, we will check urine osmolality. No need to do a 24-hour urine for sodium at this time. Start salt tablets and continue fluid restriction. I appreciate consultation.
[2018-01-23] VITALS (7 sets, daily range): BP systolic 129–159; BP diastolic 68–75; PULSE 74–82; TEMP 36.6–36.7; O2SAT 94–96
[2018-01-23] MEDS: HEPARIN SOD 5000 UNIT/0.5 ML CARP SQ SCH ×2 (05:37→14:00)
[2018-01-23] MEDS: FLUTICASONE/SALMETEROL 250/50 (ADVAIR) 14 PUFF/1 INHALER INH SCH (07:46)
[2018-01-23] MEDS: ASPIRIN 81 MG ECTAB PO SCH (07:47)
[2018-01-23] MEDS: SODIUM CHLORIDE 1 GM TAB PO SCH (07:47)
[2018-01-23] MEDS: ATORVASTATIN 40 MG TAB PO SCH (07:47)
[2018-01-23 09:57] LABS: CREATININE 0.86 mg/dl (0.60-1.20); POTASSIUM 3.5 mmol/L (3.5-5.1)
[2018-01-23] MEDS ORDERED: AMLODIPINE BESYLATE 5 MG TAB PO ONE (12:15)
[2018-01-23] MEDS: LEVOFLOXACIN 750 MG TAB PO SCH (12:25)
--- NOTE | 2018-01-23 14:14 | Progress Note ---
Medicine Progress Note Date & Time of Visit: Jan 23, 2018 at 13:39. Subjective Pt was seen and examined Sitting in chair comfortable with no distress Pt said that she feels fine She said that her breathing feels much better She is very anxious to go home today Denies any chest pain, palpitation, dizziness and SOB Objective Last 8 Hrs Date Time Temp Pulse Resp B/P (MAP) Pulse Ox O2 Delivery O2 Flow Rate FiO2 01/23/18 12:21 36.7 80 18 144/68 (93) 95 Room Air 01/23/18 08:00 96 Room Air 01/23/18 07:25 36.6 74 18 159/75 (103) 96 Room Air Physical Exam: General- No acute distress Head- atraumatic Eyes- PERRL, EOMI ENT- oropharynx clear Neck- supple, no JVD Lungs- No crackles Heart- regular rhythm + murmur, Abdomen- normal bowel sounds, soft Extremities- no calf tenderness Neuro- alert, oriented x 3; PERRL, EOMI Skin- warm & dry Laboratory Results: Last 24 Hours Test 01/23/18 09:17 Sodium Level 131 mmol/L Potassium Level 3.5 mmol/L Chloride Level 95 mmol/L Carbon Dioxide Level 29 mmol/L Anion Gap 6.0 mmol/L Blood Urea Nitrogen 15 mg/dl Creatinine 0.86 mg/dl Est Creatinine Clear Calc Drug Dose 36.5 ml/min Estimated GFR () 70.4 Estimated GFR (Non- 60.7 BUN/Creatinine Ratio 17.0 Random Glucose 123 mg/dl Calcium Level 9.0 mg/dl Assessment & Plan Dyspnea Mostly due to community acquired pneumonia: CXR showed mild bibasilar opacities and lower lung interstitial thickening with probably trace bilateral pleural effusions Continue Levaquin daily Oxygen support, Nebs PRN Blood cultures no growth Strep Screen Negative clinically stable Chest Pain Pleuritic in nature R/O ACS Risk factors: H/O HTN, HLP, Former tobacco use disorder Troponinx2 Negative EKG showed no ischemic changes CXR showed bibasilar opacities Continue Aspirin, statins resolved ECHO * The left ventricle is normal in size. * Left ventricular systolic function is normal. * Ejection Fraction = 65-70%. * The right ventricular systolic function is normal. * The left atrial size is normal. * Right atrial size is normal. * Grade I diastolic dysfunction, (abnormal relaxation pattern). * There is moderate mitral regurgitation. * The aortic valve is sclerotic. * Moderate valvular aortic stenosis. Hyponatremia: Na improved to 131 Likely secondary to dehydration Continue fluid restriction to 1.5 L Continue to hold diuretics Nephrology on board Case discussed with Dr. Chavez recommended to continue fluid restriction Continue salt tab BID Check BMP within 1 week Asthma No signs of exacerbation on exam continue home inhalers Nebs PRN H/O left breast cancer S/P lumpectomy and radiation therapy CKD III Cr at baseline monitor renal function Hypertension: BP starting to elevate Maxzide held Will start on amlodipine 5 mg daily for now monitor BP Hyperlipidemia Chol 111, LDL 44 and HDL 55 LDL at goal Continue statin H/O moderate aortic stenosis ECHO showed moderate valvular aortic stenosis. Stable DVT Px: Heparin SQ Code Status DNI/DNR Disposition: Follow up with your primary care provider Dr. Bird on 01/27 @ 11:00 Check BMP within 1 week Monitor blood pressure Follow up with nephrology if Na continue to trend down Current Inpatient Medications: Current Inpatient Medications Medications (Trade) Dose Ordered Sig/Godfrey Route Start Time Stop Time Status Last Admin Dose Admin Heparin Sodium (Porcine) (Heparin Sq 5000 Unit/0.5ml) 5,000 unit Q8 SQ 01/20/18 06:00 02/19/18 05:59 01/22/18 06:15 5,000 UNIT Acetaminophen (Tylenol Tab) 650 mg Q4H PRN PO 01/19/18 22:00 02/18/18 21:59 01/22/18 20:30 650 MG Ondansetron HCl (Zofran Inj) 4 mg Q6H PRN IV 01/19/18 22:00 02/18/18 21:59 Nitroglycerin (Nitrostat Tab) 0.4 mg UD PRN SL 01/19/18 22:00 02/18/18 21:59 Levofloxacin (Consult) 1 ea UD PRN N/A 01/19/18 22:15 02/18/18 22:14 Levalbuterol (Xopenex 0.63 Mg/ 3 Ml Neb) 0.63 mg Q6R PRN INH 01/19/18 22:15 02/18/18 22:14 01/21/18 14:27 0.63 MG Aspirin (Ecotrin Tab) 81 mg DAILY PO 4/12/18 09:00 02/19/18 08:59 01/23/18 07:47 81 MG Atorvastatin Calcium (Lipitor Tab) 40 mg DAILY PO 01/20/18 09:00 02/19/18 08:59 01/23/18 07:47 40 MG Salmeterol Xinafoate/ Fluticasone (Advair Diskus 250/50 Inh) 1 puff BID INH 01/20/18 09:00 02/19/18 08:59 01/23/18 07:46 1 PUFF Levofloxacin (Levaquin Tab) 750 mg Q2D@1100 PO 01/21/18 11:00 01/28/18 10:59 01/23/18 12:25 750 MG Sodium Chloride (Sodium Chloride Tab) 1 gm BID PO 01/22/18 09:00 02/21/18 08:59 01/23/18 07:47 1 GM Amlodipine Besylate (Norvasc Tab) 5 mg QAM PO 01/24/18 09:00 02/23/18 08:59
[2018-01-23] MEDS ORDERED: SDMC1 PO (14:19)
[2018-01-23] MEDS ORDERED: LVQ750 PO (14:19)
[2018-01-23] MEDS ORDERED: NRV5 PO (14:19)
--- NOTE | 2018-01-23 14:31 | Discharge Instructions ---
Discharge Instructions Date of Service Jan 23, 2018. Admission Reason for Admission: Shortness Of Breath Discharge Discharge Diagnosis / Problem: Pneumonia/Dyspnea/Hyponetremia Discharge Goals Goal(s): Decrease discomfort, Improve function, Improve disease control Activity Recommendations Activity Limitations: resume your previous activity (as tolerated) . Instructions / Follow-Up Instructions / Follow-Up Follow up with your primary care provider Dr. Bird on 01/27 @ 11:00 AM Follow up with nephrology (if sodium continues to drop) Continue 1.5L fluid restriction Continue Levaquin course (Next dose will be on 01/25) Check BMP within 1 week to monitor sodium level Hold Maxzide for your blood pressure Starting new medication calls Norvasc (Amlodipine) for your blood pressure Monitor blood pressure Current Hospital Diet Patient's current hospital diet: AHA Diet (Heart Healthy) Discharge Diet Recommended Diet: AHA Diet (Heart Healthy) Pending Studies Studies pending at discharge: no Laboratory Results Hemoglobin A1c Test 01/20/18 06:20 Range/Units Estimated Average Glucose 137 mg/dl Hemoglobin A1c 6.4 H 4.5-5.6 % Lipid Panel Test 01/20/18 06:20 Range/Units Triglycerides Level 60 0-150 mg/dl Cholesterol Level 111 0-200 mg/dl HDL Cholesterol 55 mg/dl Cholesterol/HDL Ratio 2.0 LDL Cholesterol, Calculated 44 mg/dl Medical Emergencies . Who to Call and When: Medical Emergencies: If at any time you feel your situation is an emergency, please call 911 immediately. . Non-Emergent Contact Non-Emergency issues call your: Primary Care Provider Call Non-Emergent contact if: you have a fever, you have any medication questions . . "Provider Documentation" section prepared by Elkin Villasenor. .
--- NOTE | 2018-01-24 08:18 | Discharge Summary ---
Discharge Summary Date of Service Jan 24, 2018. Discharge Summary Admission Date: Jan 19, 2018 at 22:05 Discharge Date: Jan 23, 2018 Discharge Disposition: Home Principal Diagnosis: PNEUMONIA Secondary Diagnoses/Problems: Chest Pain Asthma Hyponatremia CKD III H/O left breast cancer HTN H/O moderate aortic stenosis Dyslipidemia Procedures: CHEST 2 VIEWS ROUTINE CLINICAL HISTORY: Cough. Evaluate for pneumonia. COMPARISON STUDY: No previous studies for comparison. FINDINGS: Mild lung hyperexpansion is noted. There is suspected underlying emphysema. No pneumothorax is present. There are probable trace bilateral pleural effusions. There are mild bibasilar opacities with bibasilar interstitial thickening. Cardiac size is unremarkable. Mediastinal contours are unremarkable. IMPRESSION: 1. Mild bibasilar opacities and lower lung interstitial thickening which are age indeterminate. 2. Suspected emphysema. 3. Probable trace bilateral pleural effusions. Electronically signed by: Aravind Madrid M.D. 01/19/2018 7:14 PM Dictated Date/Time: 01/19/2018 7:13 PM ECHO Interpretation Summary * Name: SHANTE ROJAS Study Date: 01/20/2018 06:23 AM BP: 138/73 mmHg * Patient Location: [facility]\\S\\[id number]\\[id number] HR: 93 * : 1930 (M/d/yyyy) Gender: Female Height: 62 in * Age: 87 yrs Ethnicity: [place] Weight: 119 lb * Ordering Physician: Sander Michel * Referring Physician: Mile Bird * Performed By: Rena Golden RDCS * * Reason For Study: CHEST PAIN * BSA: 1.5 m2 * -- Conclusions -- * The left ventricle is normal in size. * Left ventricular systolic function is normal. * Ejection Fraction = 65-70%. * The right ventricular systolic function is normal. * The left atrial size is normal. * Right atrial size is normal. * Grade I diastolic dysfunction, (abnormal relaxation pattern). * There is moderate mitral regurgitation. * The aortic valve is sclerotic. * Moderate valvular aortic stenosis. Procedure Details * A complete two-dimensional transthoracic echocardiogram was performed (2D, M- mode, Doppler and color flow Doppler). Left Ventricle * The left ventricle is normal in size. * There is normal left ventricular wall thickness. * Ejection Fraction = 65-70%. * Left ventricular systolic function is normal. * The left ventricular wall motion is normal. Right Ventricle * The right ventricle is normal size. * The right ventricular systolic function is normal. Atria * The left atrial size is normal. * Right atrial size is normal. * The interatrial septum is intact with no evidence for an atrial septal defect. Mitral Valve * The mitral valve leaflets appear thickened, but open well. * There is moderate mitral regurgitation. Tricuspid Valve * The tricuspid valve anatomy is normal. * Significant tricuspid regurgitation is absent. Aortic Valve * The aortic valve is sclerotic. * Moderate valvular aortic stenosis. * There is no significant aortic regurgitation. Great Vessels * The aortic root and proximal ascending aorta are normal sized. Pericardium/Pleural * There is no pericardial effusion. Left Ventricular Diastolic Function * Grade I diastolic dysfunction, (abnormal relaxation pattern). Medication Reconciliation New Medications: Amlodipine Besylate (Amlodipine Besylate) 5 Mg Tab 5 MG PO QAM for 30 Days, #30 TAB Levofloxacin (Levofloxacin) 750 Mg Tab 750 MG PO Q2D@1100, #2 TAB Sodium Chloride (Sodium Chloride) 1 Gm Tab 1 GM PO BID for 30 Days, #60 TAB Continued Medications: Albuterol Hfa (Ventolin Hfa) 200 Puffs/19815 Mcg Aers 2-4 PUFFS INH Q6H, #1 INHALER Aspirin (Aspirin EC Low Dose) 81 Mg Ectab 81 MG PO DAILY Atorvastatin (Lipitor) 40 Mg Tab 40 MG PO DAILY Calcium Carbonate (Tums) 500 Mg Chew 500 MG PO BID Fluticasone Prop/Salmeterol (Advair Diskus 250-50 Mcg/Dose) 14 Puff/1 Inhaler Aerp 1 PUFF INH BID [place]-3 Fatty Acids (Fish Oil) 1,000 Mg Cap 1000 MG PO BID Oxybutynin Chloride (Ditropan Xl) 5 Mg Tab 1 TAB PO DAILY for 30 Days, #30 TAB 5 Refills Discontinued Medications: Triamterene/Hctz (Maxzide 75MG/50MG) Tab 0.5 TAB PO DAILY, TAB Admission Information HPI (per Admitting provider): Patient is an 87-year-old female with past medical history of left breast cancer S/P lumpectomy and radiation therapy, CKD III, asthma, hypertension, hyperlipidemia, moderate aortic stenosis, overactive bladder and other problems presents with history of shortness of breath on exertion, dry cough, sore throat , intermittent chest tightness and dizziness since 2 weeks duration. Patient states she was diagnosed to have flu 1 week ago and has completed Tamiflu therapy 2 days ago. She reports having to use her inhaler more frequently since 2 weeks. Describes chest tightness in the epigastric region which is intermittent, increases with exertion, deep breathing, coughing, nonradiating and improves with rest. Currently denies any chest pain. She reports chest tightness has been going on intermittently since at least last 10 years. Also reports associated low-grade fever, decreased appetite, weakness since 2 weeks. Denies any history of pedal edema, diaphoresis, wheezing, hemoptysis, chills, nausea, vomiting, abdominal pain, blood in stools, diarrhea, dysuria, hematuria , recent change in medications. Physical Exam (per Admitting): General Appearance: no apparent distress, + thin Head: normocephalic, atraumatic Eyes: normal inspection, PERRL, EOMI, sclerae normal ENT: normal ENT inspection, hearing grossly normal Neck: supple, trachea midline Respiratory/Chest: lungs clear, normal breath sounds, no respiratory distress, no accessory muscle use, + pertinent finding (Mild epigastric tenderness) Cardiovascular: regular rate, rhythm, no edema, + tachycardia, + systolic murmur Abdomen/GI: normal bowel sounds, soft, + tenderness (Mild epigastric tenderness) Back: normal inspection Extremities/Musculoskelatal: normal inspection, no pedal edema 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, no motor/sensory deficits, alert , normal mood/affect, oriented x 3 Skin: normal color, warm/dry Hospital Course Dyspnea Mostly due to community acquired pneumonia: CXR showed mild bibasilar opacities and lower lung interstitial thickening with probably trace bilateral pleural effusions Continue Levaquin daily Oxygen support, Nebs PRN Blood cultures no growth Strep Screen Negative clinically stable Chest Pain Pleuritic in nature R/O ACS Risk factors: H/O HTN, HLP, Former tobacco use disorder Troponinx2 Negative EKG showed no ischemic changes CXR showed bibasilar opacities Continue Aspirin, statins resolved ECHO * The left ventricle is normal in size. * Left ventricular systolic function is normal. * Ejection Fraction = 65-70%. * The right ventricular systolic function is normal. * The left atrial size is normal. * Right atrial size is normal. * Grade I diastolic dysfunction, (abnormal relaxation pattern). * There is moderate mitral regurgitation. * The aortic valve is sclerotic. * Moderate valvular aortic stenosis. Hyponatremia: Na improved to 131 Likely secondary to dehydration Continue fluid restriction to 1.5 L Continue to hold diuretics Nephrology on board Case discussed with Dr. Chavez recommended to continue fluid restriction Continue salt tab BID Check BMP within 1 week Asthma No signs of exacerbation on exam continue home inhalers Nebs PRN H/O left breast cancer S/P lumpectomy and radiation therapy CKD III Cr at baseline monitor renal function Hypertension: BP starting to elevate Maxzide held Will start on amlodipine 5 mg daily for now monitor BP Hyperlipidemia Chol 111, LDL 44 and HDL 55 LDL at goal Continue statin H/O moderate aortic stenosis ECHO showed moderate valvular aortic stenosis. Stable DVT Px: Heparin SQ Code Status DNI/DNR Disposition: Follow up with your primary care provider Dr. Bird on 01/27 @ 11:00 Check BMP within 1 week Monitor blood pressure Follow up with nephrology if Na continue to trend down Total time spent on discharge = 35 minutes This includes examination of the patient, discharge planning, medication reconciliation, and communication with other providers. Discharge Instructions Discharge Instructions Date of Service Jan 23, 2018. Admission Reason for Admission: Shortness Of Breath Discharge Discharge Diagnosis / Problem: Pneumonia/Dyspnea/Hyponetremia Discharge Goals Goal(s): Decrease discomfort, Improve function, Improve disease control Activity Recommendations Activity Limitations: resume your previous activity (as tolerated) . Instructions / Follow-Up Instructions / Follow-Up Follow up with your primary care provider Dr. Bird on 01/27 @ 11:00 AM Follow up with nephrology (if sodium continues to drop) Continue 1.5L fluid restriction Continue Levaquin course (Next dose will be on 01/25) Check BMP within 1 week to monitor sodium level Hold Maxzide for your blood pressure Starting new medication calls Norvasc (Amlodipine) for your blood pressure Monitor blood pressure Current Hospital Diet Patient's current hospital diet: AHA Diet (Heart Healthy) Discharge Diet Recommended Diet: AHA Diet (Heart Healthy) Pending Studies Studies pending at discharge: no Laboratory Results Hemoglobin A1c Test 01/20/18 06:20 Range/Units Estimated Average Glucose 137 mg/dl Hemoglobin A1c 6.4 H 4.5-5.6 % Lipid Panel Test 01/20/18 06:20 Range/Units Triglycerides Level 60 0-150 mg/dl Cholesterol Level 111 0-200 mg/dl HDL Cholesterol 55 mg/dl Cholesterol/HDL Ratio 2.0 LDL Cholesterol, Calculated 44 mg/dl Medical Emergencies . Who to Call and When: Medical Emergencies: If at any time you feel your situation is an emergency, please call 911 immediately. . Non-Emergent Contact Non-Emergency issues call your: Primary Care Provider Call Non-Emergent contact if: you have a fever, you have any medication questions . . "Provider Documentation" section prepared by Elkin Villasenor. . Additional Copies To Mile Bird M.D.
[2018-01-24] MEDS ORDERED: AMLODIPINE BESYLATE 5 MG TAB PO SCH (09:00)
== END 2018-01-23 16:03 | disposition home or self-care (01) | DRG 640 ==
LOC: C.EDB 17:16 → C.MED 22:05 → ENRESERV 22:23
PROVIDERS: ADMIT Internal Medicine; ATTEND Internal Medicine
DX: E87.1 Hypo-osmolality and hyponatremia (principal); J18.9 Pneumonia, unspecified organism; R07.81 Pleurodynia; J45.909 Unspecified asthma, uncomplicated; I13.10 Hypertensive heart and chronic kidney disease without heart failure, with stage 1 through stage 4 chronic kidney disease, or unspecified chronic kidney disease; I35.0 Nonrheumatic aortic (valve) stenosis; N18.3 Chronic kidney disease, stage 3 (moderate); E78.5 Hyperlipidemia, unspecified; N32.81 Overactive bladder; Z51.81 Encounter for therapeutic drug level monitoring; Z79.899 Other long term (current) drug therapy; Z79.82 Long term (current) use of aspirin; Z66 Do not resuscitate; Z87.09 Personal history of other diseases of the respiratory system; Z87.19 Personal history of other diseases of the digestive system; Z85.3 Personal history of malignant neoplasm of breast; Z98.890 Other specified postprocedural states; Z92.3 Personal history of irradiation; Z87.891 Personal history of nicotine dependence; Z80.7 Family history of other malignant neoplasms of lymphoid, hematopoietic and related tissues

== ENCOUNTER 2018-01-27 11:51 | Observation (INO) | payer OTHER, MEDICARE ==
[~2018-01-27] VITALS: Ht 160 cm; Wt 54.9 kg
[~2018-01-27 11:51] MED LIST: ADVIN25050 INH; ASPI-320 PO; CALC500C3 PO; LPT40 PO; LVQ750 PO; NRV5 PO; OMEG10002 PO; OXYB5TAB21 PO; SDMC1 PO; VNTHFA/IN INH
[2018-01-27] MEDS ORDERED: DILTIAZEM HCL 5 MG/ML 5 ML VIAL IV STA (12:29)
[2018-01-27] MEDS ORDERED: DILTIAZEM HCL 120 MG ER CAP PO STA (12:29)
--- NOTE | 2018-01-27 12:29 | DIAGNOSTIC IMAGING REPORT ---
CHEST ONE VIEW PORTABLE CLINICAL HISTORY: CARDIAC SYMPTOMS chest pain COMPARISON STUDY: 01/19/2018 FINDINGS: Mild stable cardiomegaly. Chronic parenchymal fibrosis unchanged. Mild emphysematous changes also stable. IMPRESSION: 1. Mild stable cardiomegaly. 2. Mild chronic fibrotic and emphysematous change. 3. No acute process. The above report was generated using voice recognition software. It may contain grammatical, syntax or spelling errors. Electronically signed by: Teo Newberry M.D. 01/27/2018 12:27 PM Dictated Date/Time: 01/27/2018 12:27 PM
--- NOTE | 2018-01-27 12:34 | EMERGENCY ROOM VISIT NOTE ---
History Report prepared by Maya: Hoda Jeong Under the Supervision of: Dr. Gilson Benson M.D. First contact with patient: 12:12 Chief Complaint: RAPID HEART RATE Stated Complaint: TACHYCARDIA Nursing Triage Summary: Was treated as inpatient for pneumonia being discharged this past wednesday. Patient was at PCP for followup and was found to be in afib with rapid RVR. Patient given 15 mg of cardizem IV prehospital. Patient has no complaint of CP at this time. Patient states "right now I am quite relaxed" but earlier today had SOB and could feel heart beating. Patient states she did have pain in her back this morning. "When I got up this morning I didn't feel good". History of Present Illness The patient is a 87 year old white female with a past medical history of pneumonia, asthma, HTN, breast cancer who presents to the ED with a cc of tachycardic beginning just prior to arrival. Positive nausea. Negative chest pain, shortness of breath, heart palpitations, blood thinners. The patient reports she woke up this morning and felt nauseous for a couple minutes. She reports taking all her medications as prescribed. The patient was discharged from the hospital on January 23 for pneumonia. The patient was at her PCP's office for followup and was found to be in Afib with rapid RVR. Her PCP referred her to the ED. Source of History: patient Onset: just prior to arrival Position: other (generalized) Quality: other (tachycardia) Associated Symptoms: No chest pain, No SOB Review of Systems See HPI for pertinent positives and negatives. A total of ten systems were reviewed and were otherwise negative. Past Medical & Surgical Medical Problems: (1) Asthma (2) Breast cancer (3) Diverticulitis (4) Hypertension (5) Shortness of breath Family History Cancer Social History Smoking Status: Never Smoker Drug Use: none Marital Status: Occupation Status: retired Current/Historical Medications Scheduled Albuterol Hfa (Ventolin Hfa), 2-4 PUFFS INH Q6H Amlodipine Besylate (Amlodipine Besylate), 5 MG PO QAM Aspirin (Aspirin EC Low Dose), 81 MG PO DAILY Atorvastatin (Lipitor), 40 MG PO DAILY Calcium Carbonate (Tums), 500 MG PO BID Fluticasone Prop/Salmeterol (Advair Diskus 250-50 Mcg/Dose), 1 PUFF INH BID [place]-3 Fatty Acids (Fish Oil), 1,000 MG PO BID Oxybutynin Chloride (Ditropan Xl), 1 TAB PO DAILY Potassium (Potassium), 1 TAB PO DAILY Sodium Chloride (Sodium Chloride), 1 GM PO BID Allergies Coded Allergies: No Known Allergies (Unverified , 01/27/18) Physical Exam Vital Signs Date Time Temp Pulse Resp B/P (MAP) Pulse Ox O2 Delivery O2 Flow Rate FiO2 01/27/18 14:54 78 20 116/61 96 Room Air 01/27/18 13:58 76 17 118/70 97 Room Air 01/27/18 13:42 71 01/27/18 13:38 71 17 99/57 93 Room Air 01/27/18 13:36 93 Room Air 01/27/18 13:05 110 18 94/73 96 Room Air 01/27/18 12:53 99 20 92/60 93 Room Air 01/27/18 12:38 135 24 102/67 96 Room Air 01/27/18 12:07 98 Room Air 01/27/18 12:02 97 01/27/18 11:58 36.8 113 20 103/67 97 Room Air 01/27/18 11:58 97 Room Air Physical Exam GENERAL: Awake, alert, well-appearing, NAD HENT: Normocephalic, atraumatic. EYES: Normal conjunctiva. Sclera non-icteric. NECK: Supple. No nuchal rigidity. FROM. RESPIRATORY: CTAB, no rhonchi, wheezing, crackles CARDIAC: Irregularly irregular, tachycardic, no MRG ABDOMEN: Soft, NTND, BS+ MSK: No chest wall TTP, no LE edema NEURO: GCS 15, CN 2-12 intact, moves all 4s on command SKIN: Bronze appearance. No rash or jaundice noted. Medical Decision & Procedures ER Provider Diagnostic Interpretation: Radiology results as stated below per my review and radiologist interpretation: CHEST ONE VIEW PORTABLE FINDINGS: Mild stable cardiomegaly. Chronic parenchymal fibrosis unchanged. Mild emphysematous changes also stable. IMPRESSION: 1. Mild stable cardiomegaly. 2. Mild chronic fibrotic and emphysematous change. 3. No acute process. The above report was generated using voice recognition software. It may contain grammatical, syntax or spelling errors. Electronically signed by: Teo Newberry M.D. Laboratory Results 4/19/18 12:06 Red Blood Count 3.77, Mean Corpuscular Volume 82.0, Mean Corpuscular Hemoglobin 27.6, Mean Corpuscular Hemoglobin Concent 33.7, Mean Platelet Volume 8.3, Neutrophils (%) (Auto) 79.1, Lymphocytes (%) (Auto) 12.3, Monocytes (%) (Auto) 6.5, Eosinophils (%) (Auto) 0.7, Basophils (%) (Auto) 0.5, Neutrophils # (Auto) 6.47, Lymphocytes # (Auto) 1.01, Monocytes # (Auto) 0.53, Eosinophils # (Auto) 0.06, Basophils # (Auto) 0.04 01/27/18 12:06 Test 01/27/18 12:06 01/27/18 12:11 01/27/18 12:12 01/27/18 15:07 White Blood Count 8.18 K/uL (4.8-10.8) Red Blood Count 3.77 M/uL (4.2-5.4) Hemoglobin 10.4 g/dL (12.0-16.0) Hematocrit 30.9 % (37-47) Mean Corpuscular Volume 82.0 fL (80-100) Mean Corpuscular Hemoglobin 27.6 pg (25-34) Mean Corpuscular Hemoglobin Concent 33.7 g/dl (32-36) Platelet Count 494 K/uL (130-400) Mean Platelet Volume 8.3 fL (7.4-10.4) Neutrophils (%) (Auto) 79.1 % Lymphocytes (%) (Auto) 12.3 % Monocytes (%) (Auto) 6.5 % Eosinophils (%) (Auto) 0.7 % Basophils (%) (Auto) 0.5 % Neutrophils # (Auto) 6.47 K/uL (1.4-6.5) Lymphocytes # (Auto) 1.01 K/uL (1.2-3.4) Monocytes # (Auto) 0.53 K/uL (0.11-0.59) Eosinophils # (Auto) 0.06 K/uL (0-0.5) Basophils # (Auto) 0.04 K/uL (0-0.2) RDW Standard Deviation 47.9 fL (36.4-46.3) RDW Coefficient of Variation 16.0 % (11.5-14.5) Immature Granulocyte % (Auto) 0.9 % Immature Granulocyte # (Auto) 0.07 K/uL (0.00-0.02) Prothrombin Time 10.9 SECONDS (9.0-12.0) Prothromb Time International Ratio 1.0 (0.9-1.1) Activated Partial Thromboplast Time 26.7 SECONDS (21.0-31.0) Partial Thromboplastin Ratio 1.0 Anion Gap 6.0 mmol/L (3-11) Est Creatinine Clear Calc Drug Dose 35.7 ml/min Estimated GFR () 72.4 Estimated GFR (Non- 62.5 BUN/Creatinine Ratio 33.2 (10-20) Calcium Level 8.7 mg/dl (8.5-10.1) Phosphorus Level 3.3 mg/dl (2.5-4.9) Magnesium Level 2.0 mg/dl (1.8-2.4) Total Bilirubin 0.3 mg/dl (0.2-1) Direct Bilirubin < 0.1 mg/dl (0-0.2) Aspartate Amino Transf (AST/SGOT) 15 U/L (15-37) Alanine Aminotransferase (ALT/SGPT) 27 U/L (12-78) Alkaline Phosphatase 68 U/L (45-117) Pro-B-Type Natriuretic Peptide 1547 pg/ml (0-1800) Total Protein 6.8 gm/dl (6.4-8.2) Albumin 2.6 gm/dl (3.4-5.0) Lipase 144 U/L (73-393) Bedside Troponin I < 0.030 ng/ml (0-0.045) Creatine Kinase MB Ratio (0-3.0) Laboratory results reviewed by me Medications Administered Medications (Trade) Dose Ordered Sig/Godfrey Route Start Time Stop Time Status Last Admin Dose Admin Diltiazem HCl (Cardizem Inj) 17 mg NOW STAT IV 01/27/18 12:29 01/27/18 12:31 DC 01/27/18 12:39 17 MG Diltiazem HCl (Dilacor Xr Cap) 120 mg ONE STAT PO 01/27/18 12:29 01/27/18 12:31 DC 01/27/18 12:38 120 MG Sodium Chloride 500 ml @ 500 mls/hr Q1H STAT IV 01/27/18 13:14 01/27/18 14:13 DC 01/27/18 13:14 500 MLS/HR ECG Per My Interpretation Indication: tachycardia Rate (beats per minute): 116 Rhythm: atrial fibrillation (with RVR) Findings: PVC, other (ectopy noted ,normal axis no STS changes or TWI) ED Course 1224: The patient was evaluated in room A3. A complete history and physical exam was performed. 1319: I updated the patient on her test results and the treatment plan. She is agreeable. 1321: Discussed the patient's case with Smiley Mclean. The patient will be evaluated for further treatment and disposition. Medical Decision The patient is a 87 year old white female with a past medical history of pneumonia, asthma, HTN, breast cancer who presents to the ED with a cc of tachycardic beginning just prior to arrival. Nursing notes reviewed. Ancillary studies and prior records reviewed. Differential diagnosis: Etiologies such as premature contractions, electrolyte abnormality, cardiac dysrhythmia, thyroid dysfunction, pulmonary embolism, infection, gastrointestinal, as well as others were entertained. Patient was seen and evaluated the bedside. I did receive a medical command call about the patient. The patient was recently discharged for pneumonia 4 days prior and the patient had a follow-up appointment and was noted to be in A. fib with RVR. The paramedics were instructed to give diltiazem IV. The patient states that she did have some mild shortness of breath and some fatigue that was ongoing this morning. The patient states that since she received her medication in the ambulance she feels improved. Patient does not have any lower extremity swelling. Patient has no prior history of an irregular heart rhythm. The patient is tacky and regular. Patient did have EKG, troponin, chest x-ray, and additional blood work. The patient's EKG showed that the patient was still in A. fib with RVR. The patient was given long-acting diltiazem along with an IV dose. Patient does have some anemia. Patient does have some thrombocytosis as well as an elevated BUN and creatinine consistent with prerenal. I believe that the patient likely also has an element of dehydration. Patient was initially given 2 50 cc and then was ordered a subsequent 250 to make for 500. Patient's other blood work is fairly unremarkable. Of note the patient did spontaneously convert thereafter; however, this may have been the long acting diltiazem. Patient does have a chance to vas score of 5 and should be anticoagulated. I did discuss this with the hospitalist. Patient was admitted for further evaluation and treatment. The hospitalist will discuss further anticoagulation with the patient as her symptoms seem to be less than 24 hours and she is now rate controlled and back in sinus rhythm per the monitor. Repeat EKG was ordered. Medication Reconcilliation Current Medication List: was personally reviewed by me Blood Pressure Screening Patient's blood pressure: Low blood pressure Blood pressure disposition: Referred to PCP (refer to hospitalist) Consults Time Called: 1314 Consulting Physician: Smiley Mclean Returned Call: 1321 Discussed the patient's case with Smiley Mclean. The patient will be evaluated for further treatment and disposition. Impression Primary Impression: Atrial fibrillation with RVR Additional Impressions: Dehydration Anemia Critical Care I have personally spent greater than 45 minutes of critical care time in the direct management of this patient. This includes bedside care, interpretation of diagnostic studies, and testing, discussion with consultants, patient, and family members, and other required patient management activities. This 45 minutes is in excess of all separately billable procedures. Scribe Attestation The scribe's documentation has been prepared under my direction and personally reviewed by me in its entirety. I confirm that the note above accurately reflects all work, treatment, procedures, and medical decision making performed by me. Departure Information Dispostion Being Evaluated By Hospitalist Referrals Mile Bird M.D. (PCP) Patient Instructions My [facility] Problem Qualifiers Additional Impressions: Anemia Anemia type: unspecified type Qualified Codes: D64.9 - Anemia, unspecified
[2018-01-27 12:47] LABS: BASO % 0.5 %; BASO ABS # 0.04 K/uL (0-0.2); EOS % 0.7 %; EOS ABS # 0.06 K/uL (0-0.5); HEMATOCRIT 30.9 % (37-47); HEMOGLOBIN 10.4 g/dL (12.0-16.0); IG# 0.07 K/uL (0.00-0.02); LYMPH % 12.3 %; LYMPH ABS # 1.01 K/uL (1.2-3.4); MEAN CORPUSCULAR HEMOGLOBIN 27.6 pg (25-34); MEAN CORPUSCULAR HGB CONC 33.7 g/dl (32-36); MEAN PLATELET VOLUME 8.3 fL (7.4-10.4); MONO % 6.5 %; MONO ABS # 0.53 K/uL (0.11-0.59); NEUT % 79.1 %; NEUT ABS # 6.47 K/uL (1.4-6.5); PLATELET COUNT 494 K/uL (130-400); RED CELL DISTRIBUTION WIDTH SD 47.9 fL (36.4-46.3); WHITE BLOOD COUNT 8.18 K/uL (4.8-10.8)
[2018-01-27 12:59] LABS: PTT PATIENT 26.7 SECONDS (21.0-31.0)
[2018-01-27 13:04] LABS: ALBUMIN 2.6 gm/dl (3.4-5.0); ALT/SGPT 27 U/L (12-78); AST/SGOT 15 U/L (15-37); BLOOD UREA NITROGEN 28 mg/dl (7-18); CALCIUM 8.7 mg/dl (8.5-10.1); CARBON DIOXIDE 27 mmol/L (21-32); CREATININE 0.84 mg/dl (0.60-1.20); GLUCOSE 103 mg/dl (70-99); LIPASE 144 U/L (73-393); POTASSIUM 3.9 mmol/L (3.5-5.1); SODIUM 137 mmol/L (136-145)
[2018-01-27 13:07] LABS: ALKALINE PHOSPHATASE 68 U/L (45-117); PHOSPHORUS 3.3 mg/dl (2.5-4.9); TOTAL PROTEIN 6.8 gm/dl (6.4-8.2)
[2018-01-27] MEDS ORDERED: SODIUM CHLORIDE 0.9% 500ML 500 ML IV STA (13:14)
[2018-01-27 13:36] VITALS: O2SAT 93; Ht 160 cm; Wt 54.9 kg
[2018-01-27] MEDS ORDERED: POTA99TA PO (14:14)
[2018-01-27] MEDS ORDERED: ACETAMINOPHEN 325 MG TAB PO PRN (15:00)
[2018-01-27] MEDS ORDERED: IV FLUIDS COMPLETED PRN (15:00)
[2018-01-27] MEDS ORDERED: ALBUTEROL HFA 8 GM INHALER INH PRN (15:15)
--- NOTE | 2018-01-27 15:17 | History and Physical ---
History & Physical Date & Time of Service: Jan 27, 2018 at 15:17 Chief Complaint: Tachycardia Primary Care Physician: Mile Bird M.D. History of Present Illness Source: patient, clinic records, hospital records Patient is an 87-year-old female with the PMH of HTN, moderate aortic stenosis, HLD, h/o breast cancer (s/p lumpectomy, XRT), CKD III and other medical problems listed below who presents from clinic in A. fib with RVR. Patient was recently hospitalized from 01/19-01/23 for treatment of pneumonia and was discharged on Levaquin, which she completed earlier today. Patient felt well over the past few days and was able to attend her water aerobics class yesterday. Woke up this morning with generalized weakness, dizziness, SOB and posterior right-sided back pain. Went to her PCP hospital follow-up appointment and EKG was performed, revealing A. fib with RVR at a rate of 159. Patient was given a full dose aspirin and sent to ED for further evaluation. Was given 17 mg IV Cardizem as well as 120 mg PO Cardizem and patient converted to sinus rhythm. Patient was examined after conversion to sinus and states that she feels much better. Denies any lightheadedness, dizziness, headache, visual changes, chest pain, palpitations, SOB, abdominal pain, nausea, vomiting , bowel or bladder changes or LE swelling. Patient lives with family in [place] and remains very active. Denies any previous atrial fibrillation. Has recently reduced caffeine intake. States that she has a few ounces of wine with dinner most nights. Echo performed during previous admission (01/20/18) shows grade 1 diastolic dysfunction, EF: of 65-70% and moderate MR and aortic stenosis. Past Medical/Surgical History Medical Problems: (1) Asthma Status: Chronic (2) Breast cancer Status: Resolved (3) Chronic hyponatremia Status: Chronic (4) CKD (chronic kidney disease), stage III Status: Chronic (5) Diverticulitis Status: Resolved (6) H/O malignant neoplasm of breast Status: Chronic (7) HLD (hyperlipidemia) Status: Chronic (8) Hypertension Status: Chronic (9) 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 Status: Chronic (10) Moderate aortic stenosis by prior echocardiogram Status: Chronic (11) Overactive bladder Status: Chronic Family History Cancer Social History Smoking Status: Former Smoker Alcohol Use: Glass of wine with dinner 5x/week Drug Use: none Marital Status: Occupational Status: retired Allergies Coded Allergies: No Known Allergies (Unverified , 01/27/18) Home Medications Scheduled Albuterol Hfa (Ventolin Hfa), 2-4 PUFFS INH Q6H Amlodipine Besylate (Amlodipine Besylate), 5 MG PO QAM Aspirin (Aspirin EC Low Dose), 81 MG PO DAILY Atorvastatin (Lipitor), 40 MG PO DAILY Calcium Carbonate (Tums), 500 MG PO BID Fluticasone Prop/Salmeterol (Advair Diskus 250-50 Mcg/Dose), 1 PUFF INH BID [place]-3 Fatty Acids (Fish Oil), 1,000 MG PO BID Oxybutynin Chloride (Ditropan Xl), 1 TAB PO DAILY Potassium (Potassium), 1 TAB PO DAILY Sodium Chloride (Sodium Chloride), 1 GM PO BID Review of Systems Ten systems reviewed and negative except as noted in the HPI. Physical Exam Vital Signs Date Time Temp Pulse Resp B/P (MAP) Pulse Ox O2 Delivery O2 Flow Rate FiO2 01/27/18 14:54 78 20 116/61 96 Room Air 01/27/18 13:58 76 17 118/70 97 Room Air 01/27/18 13:42 71 01/27/18 13:38 71 17 99/57 93 Room Air 01/27/18 13:36 93 Room Air 01/27/18 13:05 110 18 94/73 96 Room Air 01/27/18 12:53 99 20 92/60 93 Room Air 01/27/18 12:38 135 24 102/67 96 Room Air 01/27/18 12:07 98 Room Air 01/27/18 12:02 97 01/27/18 11:58 36.8 113 20 103/67 97 Room Air 01/27/18 11:58 97 Room Air General Appearance: WD/WN, no apparent distress Head: normocephalic, atraumatic Eyes: normal inspection, PERRL, sclerae normal ENT: normal ENT inspection, hearing grossly normal, pharynx normal (Moist mucous membranes) Neck: supple, thyroid normal, no JVD, trachea midline Respiratory/Chest: chest non-tender, lungs clear, normal breath sounds, no respiratory distress, no accessory muscle use Cardiovascular: regular rate, rhythm, normal peripheral pulses, + systolic murmur Abdomen/GI: non tender, soft, no organomegaly Back: normal inspection Extremities/Musculoskelatal: normal inspection, no calf tenderness, no pedal edema Neurologic/Psych: no motor/sensory deficits, alert, normal mood/affect, oriented x 3 Skin: normal color, warm/dry, no rash Diagnostics Laboratory Results Results Past 24 Hours Test 01/27/18 12:06 01/27/18 12:11 01/27/18 12:12 01/27/18 15:07 Range/Units White Blood Count 8.18 4.8-10.8 K/uL Red Blood Count 3.77 4.2-5.4 M/uL Hemoglobin 10.4 12.0-16.0 g/dL Hematocrit 30.9 37-47 % Mean Corpuscular Volume 82.0 80-100 fL Mean Corpuscular Hemoglobin 27.6 25-34 pg Mean Corpuscular Hemoglobin Concent 33.7 32-36 g/dl Platelet Count 494 130-400 K/uL Mean Platelet Volume 8.3 7.4-10.4 fL Neutrophils (%) (Auto) 79.1 % Lymphocytes (%) (Auto) 12.3 % Monocytes (%) (Auto) 6.5 % Eosinophils (%) (Auto) 0.7 % Basophils (%) (Auto) 0.5 % Neutrophils # (Auto) 6.47 1.4-6.5 K/uL Lymphocytes # (Auto) 1.01 1.2-3.4 K/uL Monocytes # (Auto) 0.53 0.11-0.59 K/uL Eosinophils # (Auto) 0.06 0-0.5 K/uL Basophils # (Auto) 0.04 0-0.2 K/uL RDW Standard Deviation 47.9 36.4-46.3 fL RDW Coefficient of Variation 16.0 11.5-14.5 % Immature Granulocyte % (Auto) 0.9 % Immature Granulocyte # (Auto) 0.07 0.00-0.02 K/uL Prothrombin Time 10.9 9.0-12.0 SECONDS Prothromb Time International Ratio 1.0 0.9-1.1 Activated Partial Thromboplast Time 26.7 21.0-31.0 SECONDS Partial Thromboplastin Ratio 1.0 Sodium Level 137 136-145 mmol/L Potassium Level 3.9 3.5-5.1 mmol/L Chloride Level 104 98-107 mmol/L Carbon Dioxide Level 27 21-32 mmol/L Anion Gap 6.0 3-11 mmol/L Blood Urea Nitrogen 28 7-18 mg/dl Creatinine 0.84 0.60-1.20 mg/dl Est Creatinine Clear Calc Drug Dose 35.7 ml/min Estimated GFR () 72.4 Estimated GFR (Non- 62.5 BUN/Creatinine Ratio 33.2 10-20 Random Glucose 103 70-99 mg/dl Calcium Level 8.7 8.5-10.1 mg/dl Phosphorus Level 3.3 2.5-4.9 mg/dl Magnesium Level 2.0 1.8-2.4 mg/dl Total Bilirubin 0.3 0.2-1 mg/dl Direct Bilirubin < 0.1 0-0.2 mg/dl Aspartate Amino Transf (AST/SGOT) 15 15-37 U/L Alanine Aminotransferase (ALT/SGPT) 27 12-78 U/L Alkaline Phosphatase 68 45-117 U/L Pro-B-Type Natriuretic Peptide 1547 0-1800 pg/ml Total Protein 6.8 6.4-8.2 gm/dl Albumin 2.6 3.4-5.0 gm/dl Lipase 144 73-393 U/L Bedside Troponin I < 0.030 0-0.045 ng/ml Creatine Kinase MB Ratio 0-3.0 Diagnostic Radiology CXR: IMPRESSION: 1. Mild stable cardiomegaly. 2. Mild chronic fibrotic and emphysematous change. 3. No acute process. EKG Initial EKG in ED: Atrial fibrillation with rapid ventricular response with premature ventricular or aberrantly conducted comp at 116 bpm. Repeat EKG in ED: Normal sinus rhythm at 78 bpm. Impression Assessment and Plan Patient is an 87-year-old female with the PMH of HTN, moderate aortic stenosis, HLD, h/o breast cancer (s/p lumpectomy, XRT), CKD III and other medical problems listed below who presents from clinic in A. fib with RVR. New onset A fib with RVR: -A fib with RVR at 159 bpm in clinic -Received IV and PO cardizem in ED-- converted to NSR -Likely 2/2 underlying valvular disease -Considered pulmonary etiology but no clinical indication of PNA -Dimer elevated to 1440. CTA chest pending to r/o PE -Electrolytes, TSH (performed last week) are wnl -Cardio consulted -Initiation dose of amiodarone for rhythm control -Metoprolol 2.5mg BID -Start coumadin, no heparin bridge -Monitor on telemetry HTN: -Discontinue amlodipine, per cardio -Continue with metoprolol -Monitor Chronic hyponatremia: -Serum Na currently wnl at 137 -Follows with Dr. White in clinic -2/2 chronic hctz use, structural lung disease -Continue fluid restriction of 1.5L, NaCl tabs 1gm BID -Monitor BMP HLD: -Reduced atorvastatin to 20mg PO daily due to risk of interaction with amiodarone. CKD III: -Cr, GFR at baseline Asthma: -At baseline -Cont albuterol PRN, Advair Overactive bladder: -Cont oxybutynin DVT Ppx: Initiated coumadin Code status: DNR per discussion with patient PCP: [facility] Dispo: Discharge planning ordered. Patient seen in collaboration with Dr. Miramontes. Please see addendum. ADDENDUM: I have seen and examined the patient and agree with the assessment and plan as above. She reports feeling much better s/p pneumonia treatment and discharge from hospital 4 days ago. She was able to participate in water aerobics wo issue yesterday. Denies cough, fevers, chills. Acute afib episode today with spontaneous conversion after diltiazem. Apprec Cards involvement and up front management of patient. Cont conservative amio load and rate control with metoprolol. As she is in sinus rhythm, no need for heparin drip at this time, but if she goes back into this rhythm would add a heparin drip. No PE seen on CT scan. Cont daily coumadin in setting of afib with valve disease and defer to cardiology for long-term management. DO Kulwinder Advanced Directives Existing Living Will: Yes Existing Power of Garde Manger: Yes Resuscitation Status VTE Prophylaxis Will order VTE Prophylaxis: Yes
[2018-01-27] MEDS ORDERED: AMIODARONE 200 MG TAB PO ONE (16:27)
--- NOTE | 2018-01-27 16:44 | Cardiology Consultation ---
Cardiology Consultation Date of Consultation: Jan 27, 2018 History of Present Illness Patient is a 87 year old female seen in cardiology consultation per the request of Smiley Sigala PA-C and Dr Miramontes for the evaluation of atrial fibrillation. The patient does not routinely follow with cardiology. The patient had recently been hospitalized from 01/19/18 until 01/23/18 having presented with shortness of breath and was treated for pneumonia. During the hospital stay she underwent an echocardiogram performed on 01/20/18 that was interpreted by Dr. Sosa of our practice with findings of ejection fraction of 65-70% and moderate mitral regurgitation and moderate aortic valve stenosis which was a new diagnosis for her. She presented to [facility] today to see her primary care physician, Dr. Mile Bird, and post hospital follow-up. The patient complained of recent worsening exertional shortness of breath and on further questioning admitted that her heart rate was elevated and felt like it was racing. EKG was confirmed and revealed the presence of newly recognized atrial fibrillation with rapid ventricular rate. Upon arrival to the emergency room at 11:55 AM this morning atrial fibrillation with continued rapid ventricular response was noted with ventricular rate of 116 bpm on EKG without any significant ST changes. Occasional supraventricular and ventricular ectopy was noted. The patient received a dose of diltiazem 17 mg intravenously at 12: 39 PM as well as a dose of oral extended release diltiazem 120 mg. Spontaneous conversion to sinus rhythm occurred several minutes later. Per review of telemetry in the emergency room several episodes of accelerated junctional rhythm were present followed by sinus rhythm without significant conversion pauses. A follow-up EKG performed prior to my arrival at 1343 documented normal sinus rhythm at 78 bpm. Ventricular rate had decreased by 30 bpm compared to the atrial fibrillation tracing. Patient is accompanied by her daughter, Karlie. The patient lives with her daughter having relocated here as the patient previously lived in [place]. She also lives with her son-in-law, grandson, and their dog ,Shravan. She states that when she presented to the primary care physician's office today she had felt dizzy this weakness, and felt her heart racing with associated shortness of breath and this has since resolved. Past Medical/Surgical History Problem List: Medical Problems: (1) Asthma (2) Breast cancer (3) Diverticulitis (4) Hypertension (5) Shortness of breath History Past Medical History: Valvular heart disease and moderate mitral regurgitation mild calcific aortic valve stenosis January, Social History: The patient lives with her daughter and her family. 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 She is physically active and attends water aerobics at the [facility]. Family History: Her father in his 90s due to stroke, no other definite close family history of cardiovascular disease. Review Of Systems 10 point review of systems is reviewed and is negative Allergies Coded Allergies: No Known Allergies (Unverified , 01/27/18) Medications Reported Home Medications Medications Dose Route/Sig Max Daily Dose Days Date Category Potassium 99 Mg Tab 1 Tab PO DAILY 01/27/18 Reported Sodium Chloride 1 Gm Tab 1 Gm PO BID 30 01/23/18 Rx Amlodipine Besylate 5 Mg Tab 5 Mg PO QAM 30 01/23/18 Rx Tums (Calcium Carbonate) 500 Mg Chew 500 Mg PO BID 01/19/18 Reported Fish Oil ([place]-3 Fatty Acids) 1,000 Mg Cap 1,000 Mg PO BID 01/19/18 Reported Ditropan Xl (Oxybutynin Chloride) 5 Mg Tab 1 Tab PO DAILY 30 01/19/18 Reported Advair Diskus 250-50 Mcg/Dose (Fluticasone Prop/Salmeterol) 14 Puff/1 Inhaler Aerp 1 Puff INH BID 01/19/18 Reported Lipitor (Atorvastatin Calcium) 40 Mg Tab 40 Mg PO DAILY 01/19/18 Reported Aspirin EC Low Dose (Aspirin) 81 Mg Ectab 81 Mg PO DAILY 01/19/18 Reported Ventolin Hfa (Albuterol) 200 Puffs/90953 Mcg Aers 2-4 Puffs INH Q6H 01/19/18 Reported Physical Exam Vital Signs (Last 8hrs): Last 8 Hrs Date Time Temp Pulse Resp B/P (MAP) Pulse Ox O2 Delivery O2 Flow Rate FiO2 01/27/18 16:00 82 16 110/62 99 Room Air 01/27/18 14:54 78 20 116/61 96 Room Air 01/27/18 13:58 76 17 118/70 97 Room Air 01/27/18 13:42 71 01/27/18 13:38 71 17 99/57 93 Room Air 01/27/18 13:36 93 Room Air 01/27/18 13:05 110 18 94/73 96 Room Air 01/27/18 12:53 99 20 92/60 93 Room Air 01/27/18 12:38 135 24 102/67 96 Room Air 01/27/18 12:07 98 Room Air 01/27/18 12:02 97 01/27/18 11:58 36.8 113 20 103/67 97 Room Air 01/27/18 11:58 97 Room Air General Appearance: Alert and Oriented x3. NAD. Head: Normocephalic Atraumatic. Eyes: PERRLA, EOMI, conjunctiva and sclera clear Neck: Supple. No carotid bruits noted. No JVD. No HJD. Respiratory: Breath sounds clear to auscultation bilaterally. No w/r/r. Cardiovascular: Reg rate and rhythm. S1 and S2 noted. No murmurs, rubs, gallops. PMI non displace. Abdomen: Normal bowel sounds, soft nontender. no abdominal bruits. Extremities: No edema, no clubbing or cyanosis. distal pulses 2/4 bilaterally. Neuro: No focal deficits. Psychiatric: Normal affect. Data Last 24 Hours Test 01/27/18 12:00 01/27/18 12:06 01/27/18 12:11 01/27/18 12:12 D-Dimer 1400 ug/L FEU White Blood Count 8.18 K/uL Red Blood Count 3.77 M/uL Hemoglobin 10.4 g/dL Hematocrit 30.9 % Mean Corpuscular Volume 82.0 fL Mean Corpuscular Hemoglobin 27.6 pg Mean Corpuscular Hemoglobin Concent 33.7 g/dl Platelet Count 494 K/uL Mean Platelet Volume 8.3 fL Neutrophils (%) (Auto) 79.1 % Lymphocytes (%) (Auto) 12.3 % Monocytes (%) (Auto) 6.5 % Eosinophils (%) (Auto) 0.7 % Basophils (%) (Auto) 0.5 % Neutrophils # (Auto) 6.47 K/uL Lymphocytes # (Auto) 1.01 K/uL Monocytes # (Auto) 0.53 K/uL Eosinophils # (Auto) 0.06 K/uL Basophils # (Auto) 0.04 K/uL RDW Standard Deviation 47.9 fL RDW Coefficient of Variation 16.0 % Immature Granulocyte % (Auto) 0.9 % Immature Granulocyte # (Auto) 0.07 K/uL Prothrombin Time 10.9 SECONDS Prothromb Time International Ratio 1.0 Activated Partial Thromboplast Time 26.7 SECONDS Partial Thromboplastin Ratio 1.0 Sodium Level 137 mmol/L Potassium Level 3.9 mmol/L Chloride Level 104 mmol/L Carbon Dioxide Level 27 mmol/L Anion Gap 6.0 mmol/L Blood Urea Nitrogen 28 mg/dl Creatinine 0.84 mg/dl Est Creatinine Clear Calc Drug Dose 35.7 ml/min Estimated GFR () 72.4 Estimated GFR (Non- 62.5 BUN/Creatinine Ratio 33.2 Random Glucose 103 mg/dl Calcium Level 8.7 mg/dl Phosphorus Level 3.3 mg/dl Magnesium Level 2.0 mg/dl Total Bilirubin 0.3 mg/dl Direct Bilirubin < 0.1 mg/dl Aspartate Amino Transf (AST/SGOT) 15 U/L Alanine Aminotransferase (ALT/SGPT) 27 U/L Alkaline Phosphatase 68 U/L Pro-B-Type Natriuretic Peptide 1547 pg/ml Total Protein 6.8 gm/dl Albumin 2.6 gm/dl Lipase 144 U/L Bedside Troponin I < 0.030 ng/ml Creatine Kinase MB Ratio EKG and recent echocardiogram as outlined in HPI Assessment & Plan Impression: 87-year-old female with presentation of first documented episode of symptomatic atrial fibrillation with rapid ventricular response. She spontaneously converted to sinus rhythm shortly after treatment with IV and oral diltiazem today. Discussion/recommendations: Given the patient's underlying valvular heart disease including moderate mitral regurgitation and moderate aortic valve stenosis at speculate that she would not tolerate atrial fibrillation with rapid ventricular rate well from a respiratory standpoint. She had recently been treated with a course of levofloxacin for pneumonia and this is completed. Her corrected QT interval is stable on the 2 EKG tracings performed today. I think her best approach is to proceed with a rhythm control strategy. I am going to transition her off of amlodipine which she has been on as blood pressure medication and onto metoprolol starting dose of 2.5 mg twice daily. Will also proceed with initiation of amiodarone. We will start with a cautious loading dose of 200 mg now with next dose tomorrow morning and twice daily thereafter as tolerated. We discussed options of going home, but I would be concerned that she would end up back in atrial fibrillation within a brief amount of time and I think we should instead start antiarrhythmic therapy on telemetry monitoring and attempt to maintain sinus rhythm. She is currently in sinus rhythm and I think it is reasonable to just start her on Coumadin without heparin bridge at this point. He does note that she had been on subcutaneous heparin for several days during her hospital stay and she received this treatment from 01/20/18 until 01/22/18, and then with her afternoon dose on 01/22/18 she declined treatment and therefore she did not receive DVT prophylaxis on the or . At present she is not in any respiratory distress. Given her history of renal insufficiency, will hold off on CT scan for pulmonary embolism, but will proceed with lower extremity venous duplex for further risk stratification and if she has a DVT will proceed with heparin bridge. Her baseline liver function tests is performed in the emergency room are stable. She had a stable TSH earlier this month during her prior hospital stay.
[2018-01-27 16:45] VITALS: BP 139/70; PULSE 75; TEMP 36.8; O2SAT 95
[2018-01-27] MEDS: WARFARIN SOD 5 MG TAB PO SCH (17:20)
[2018-01-27] MEDS ORDERED: SODIUM CHLORIDE 0.9% 1000ML 1,000 ML IV SCH (18:45)
[2018-01-27] MEDS ORDERED: OPTIRAY 320 IV PRN (18:45)
[2018-01-27 19:18] VITALS: BP 115/66; PULSE 78; TEMP 36.6; O2SAT 97
--- NOTE | 2018-01-27 20:01 | DIAGNOSTIC IMAGING REPORT ---
(CHEST FOR PE) ANGIO WITH CT DOSE: 207.82 mGy.cm HISTORY: 87 years-old Female presents with acute atrial fibrillation and elevated d-dimer level TECHNIQUE: Multiple CTA images of the chest were obtained after the intravenous administration of 100 ml Optiray 320. Coronal and sagittal MIPS were obtained from the axial data set and were submitted for review. A dose lowering technique was utilized adhering to the principles of ALARA. COMPARISON: Chest radiograph 01/27/2018 FINDINGS: CTA: Cardiac silhouette is mildly enlarged without pericardial effusion. Coronary arterial disease. Calcifications of the aortic annulus are noted. No aortic aneurysm or dissection identified. There is moderate atherosclerosis of the thoracic aorta. The imaged great vessels appear patent. The pulmonary arterial tree is opacified to level of the proximal subsegmental branches and demonstrates no focal filling defects to suggest pulmonary thromboembolic disease. There is dilation of the main pulmonary artery, 3.0 cm suggesting pulmonary arterial hypertension. CT CHEST: No dominant thyroid nodule. No pathologically enlarged lymph nodes. 7 mm subcarinal lymph node along with mildly prominent right hilar lymph nodes are likely reactive. No pneumothorax or pleural effusion. There are patchy nodular and consolidative opacities of the bilateral lung bases with mild bilateral bronchial wall thickening and areas of bronchial mucous plugging. Tree-in-bud nodules of the bilateral lung bases and superior segments of the lower lobes are also seen compatible with infectious bronchiolitis. Additionally, there are patchy consolidative opacities of the right upper lobe. Moderate biapical pleural-parenchymal scarring. No acute process of the imaged upper abdomen. Small sliding-type hiatal hernia. Calcifications of the left breast. Degenerative changes of the shoulders and spine. No suspicious lytic or blastic bony lesions. Multilevel endplate spurring of the spine. IMPRESSION: 1. No acute aortic pathology or evidence of pulmonary thromboembolic disease. 2. Multifocal patchy nodular and consolidative opacities of the bilateral lung bases and right upper lobe suggests aspiration pneumonitis or infectious bronchopneumonia. Additionally, there are scattered areas of tree-in-bud nodularity of the lung bases compatible with bronchiolitis. 3. Cardiomegaly. 4. Dilation of the main pulmonary artery suggests pulmonary arterial hypertension. 5. Additional findings as above. The above report was generated using voice recognition software. It may contain grammatical, syntax or spelling errors. Electronically signed by: Beau Morel M.D. 01/27/2018 7:59 PM Dictated Date/Time: 01/27/2018 7:52 PM
[2018-01-27] MEDS: FLUTICASONE/SALMETEROL 250/50 (ADVAIR) 14 PUFF/1 INHALER INH SCH (20:50)
[2018-01-27] MEDS: METOPROLOL TARTRATE 25 MG TAB PO SCH (20:52)
[2018-01-27] MEDS: SODIUM CHLORIDE 1 GM TAB PO SCH (21:02)
[2018-01-27] MEDS: CALCIUM CARBONATE 500 MG CHEWABLE PO SCH (21:02)
[2018-01-27 21:06] VITALS: BP 120/66; PULSE 80; O2SAT 95
--- NOTE | 2018-01-27 22:16 | DIAGNOSTIC IMAGING REPORT ---
BILATERAL LOWER EXTREMITY VENOUS DOPPLER HISTORY: Acute bilateral lower extremity pain and swelling with concern for DVT rule out DVT COMPARISON STUDY: CTA of the chest of same day. FINDINGS: There is normal compressibility, flow, and augmentation within the bilateral lower extremity deep venous systems. IMPRESSION: No sonographic evidence of deep venous thrombosis within the right or left lower extremity. Electronically signed by: Beau Morel M.D. 01/27/2018 10:15 PM Dictated Date/Time: 01/27/2018 10:14 PM
[2018-01-27 23:18] VITALS: BP 107/59; PULSE 64; TEMP 36.6; O2SAT 96
[2018-01-28] VITALS (8 sets, daily range): BP systolic 108–127; BP diastolic 57–71; PULSE 65–68; TEMP 36.6–37.1; O2SAT 95–97
[2018-01-28 06:02] LABS: HEMATOCRIT 27.5 % (37-47); HEMOGLOBIN 9.1 g/dL (12.0-16.0); MEAN CELL VOLUME 81.8 fL (80-100); MEAN CORPUSCULAR HEMOGLOBIN 27.1 pg (25-34); MEAN CORPUSCULAR HGB CONC 33.1 g/dl (32-36); MEAN PLATELET VOLUME 8.2 fL (7.4-10.4); PLATELET COUNT 428 K/uL (130-400); RED CELL DISTRIBUTION WIDTH CV 16.2 % (11.5-14.5); RED CELL DISTRIBUTION WIDTH SD 48.5 fL (36.4-46.3); WHITE BLOOD COUNT 6.17 K/uL (4.8-10.8)
[2018-01-28 06:07] LABS: INR 1.1 (0.9-1.1)
[2018-01-28 06:32] LABS: CALCIUM 8.1 mg/dl (8.5-10.1); CREATININE 0.81 mg/dl (0.60-1.20); POTASSIUM 3.9 mmol/L (3.5-5.1)
[2018-01-28] MEDS ORDERED: NON-FORMULARY MEDICATION (Potassium 1 TAB) PO SCH (09:00)
[2018-01-28] MEDS ORDERED: OXYBUTYNIN CHLORIDE 5 MG TABCR PO SCH (09:00)
[2018-01-28] MEDS ORDERED: ATORVASTATIN 20 MG TAB PO SCH (09:00)
[2018-01-28] MEDS ORDERED: ASPIRIN 81 MG ECTAB PO SCH (09:00)
[2018-01-28] MEDS ORDERED: AMIODARONE 200 MG TAB PO SCH (09:00)
[2018-01-28] MEDS: FLUTICASONE/SALMETEROL 250/50 (ADVAIR) 14 PUFF/1 INHALER INH SCH (09:59)
[2018-01-28] MEDS: SODIUM CHLORIDE 1 GM TAB PO SCH (10:01)
[2018-01-28] MEDS: CALCIUM CARBONATE 500 MG CHEWABLE PO SCH (10:01)
[2018-01-28] MEDS: METOPROLOL TARTRATE 25 MG TAB PO SCH (11:35)
--- NOTE | 2018-01-28 13:41 | Cardiology Follow-Up ---
Subjective General Date of Service: Jan 28, 2018. Chief Complaint: follow up AF Pt evaluation today including: conversation w/ patient, conversation w/ family , physical exam History of Present Illness The patient is a 87 year old female seen in follow up. She remains in sinus rhythm in the 60- 70 bpm range. The corrected QT interval in the EKG was 464 ms . Allergies Coded Allergies: No Known Allergies (Unverified , 01/27/18) Social History Smoking Status: Former Smoker Hx Tobacco Use In Past Year?: No Hx Alcohol Use - Type And Amou: Yes (Wine/scotch; 1 drink/night) Hx Substance Use - Type And Am: No Problem List Medical Problems: (1) Atrial fibrillation with RVR Status: Acute (2) Exertional chest pain Status: Acute (3) Hyponatremia Status: Acute (4) Pneumonia of both lower lobes Status: Acute Physical Exam Vital Signs Last Vital Signs Documentation Date Time Temp Pulse Resp B/P (MAP) Pulse Ox O2 Delivery O2 Flow Rate FiO2 01/28/18 12:00 95 Room Air 01/28/18 10:44 36.6 68 18 127/71 (89) Physical Exam Constitutional: Level of Distress: NAD ENMT: normal ENT inspection Neck: supple Lungs: Auscultation: no wheezing, no rales/crackles Cardiovascular: Heart Auscultation: RRR, no murmurs, no rubs Extremities: no edema Neurologic: Gait & Station: pertinent finding (No focal deficitS) Assessment and Plan Assessment and Plan Impression: 1. PAF. 2. Moderate MR, Moderate 3. Resolving pneumonia. Improved clinically, residual findings noted on CT 4. Lower extremity venous duplex is negative for DVT, CT is negative for large vessel pulmonary embolus Plan: Patient is stable from my perspective to discharged. Home atorvastatin has been reduced given treatment with amiodarone. Discharge on amiodarone 200 mg twice daily and metoprolol tartrate 12.5 mg twice daily. Amlodipine has been discontinued. Outpatient treatment with Coumadin as recommended. Will place referral to [facility] anticoagulation clinic in her outpatient chart and will arrange cardiology follow-up. Laboratory Results Last 24 Hours Test 01/28/18 05:32 White Blood Count 6.17 K/uL Red Blood Count 3.36 M/uL Hemoglobin 9.1 g/dL Hematocrit 27.5 % Mean Corpuscular Volume 81.8 fL Mean Corpuscular Hemoglobin 27.1 pg Mean Corpuscular Hemoglobin Concent 33.1 g/dl RDW Standard Deviation 48.5 fL RDW Coefficient of Variation 16.2 % Platelet Count 428 K/uL Mean Platelet Volume 8.2 fL Prothrombin Time 11.4 SECONDS Prothromb Time International Ratio 1.1 Sodium Level 137 mmol/L Potassium Level 3.9 mmol/L Chloride Level 107 mmol/L Carbon Dioxide Level 26 mmol/L Anion Gap 4.0 mmol/L Blood Urea Nitrogen 25 mg/dl Creatinine 0.81 mg/dl Est Creatinine Clear Calc Drug Dose 40.5 ml/min Estimated GFR () 75.7 Estimated GFR (Non- 65.3 BUN/Creatinine Ratio 30.8 Random Glucose 98 mg/dl Calcium Level 8.1 mg/dl
[2018-01-28] MEDS: WARFARIN SOD 5 MG TAB PO SCH (15:27)
--- NOTE | 2018-01-28 16:04 | Discharge Instructions ---
Discharge Instructions Date of Service Jan 28, 2018. Admission Reason for Admission: Atrial Fibrillation With Rvr Discharge Discharge Diagnosis / Problem: PAROXYSMAL AFIB Discharge Goals Goal(s): Improve disease control, Therapeutic intervention Activity Recommendations Activity Limitations: resume your previous activity . Instructions / Follow-Up Instructions / Follow-Up HOSPITAL FOLLOW UP on 02/01/2018 @ 1:[address] Shena Lenz MD General Internal Medicine [facility] CARDIOLOGY FOLLOW UP :02/07/2018 @ 2:[address] Terrence Dyer Jr., Cardiology, [facility] FOLLOW UP WITH COAGULATION /COUMADIN CLINIC FOR PT/INR MONITORING AND ADJUSTMENT OF COUMADIN DOSE GOAL INR 2-3 COAG CLINIC WILL CALL YOU FOR PT/INR CHECK ON Wednesday01/31/18 PLEASE NOTIFY YOUR FAMILY PHYSICIAN OR COME TO ER WITH ANY EPISODE OF EXCESSIVE BLEEDING FORM NOSE /DARK STOOL OR BLOOD IN STOOL /BLOOD IN URINE Current Hospital Diet Patient's current hospital diet: AHA Diet (Heart Healthy) Discharge Diet Recommended Diet: AHA Diet (Heart Healthy) Pending Studies Studies pending at discharge: no Laboratory Results Hemoglobin A1c Test 01/20/18 06:20 Range/Units Estimated Average Glucose 137 mg/dl Hemoglobin A1c 6.4 H 4.5-5.6 % Lipid Panel Test 01/20/18 06:20 Range/Units Triglycerides Level 60 0-150 mg/dl Cholesterol Level 111 0-200 mg/dl HDL Cholesterol 55 mg/dl Cholesterol/HDL Ratio 2.0 LDL Cholesterol, Calculated 44 mg/dl Medical Emergencies . Who to Call and When: Medical Emergencies: If at any time you feel your situation is an emergency, please call 911 immediately. . Non-Emergent Contact Non-Emergency issues call your: Primary Care Provider .ANY EPISODE OF EXCESSIVE BLEEDING FORM NOSE /DARK STOOL OR BLOOD IN STOOL / BLOOD IN URINE . "Provider Documentation" section prepared by Laney Patton. .
[2018-01-28] MEDS ORDERED: LPT20 PO (16:10)
[2018-01-28] MEDS ORDERED: CRD200 PO (16:10)
[2018-01-28] MEDS ORDERED: CMD5 PO (16:10)
[2018-01-28] MEDS ORDERED: LPR25 PO (16:10)
--- NOTE | 2018-01-28 16:30 | Discharge Summary ---
Discharge Summary Date of Service Jan 28, 2018. Discharge Summary Admission Date: Jan 27, 2018 at 14:49 Discharge Date: Jan 28, 2018 Discharge Disposition: Home Admission Information HPI (per Admitting provider): Patient is an 87-year-old female with the PMH of HTN, moderate aortic stenosis, HLD, h/o breast cancer (s/p lumpectomy, XRT), CKD III and other medical problems listed below who presents from clinic in A. fib with RVR. Patient was recently hospitalized from 01/19-01/23 for treatment of pneumonia and was discharged on Levaquin, which she completed earlier today. Patient felt well over the past few days and was able to attend her water aerobics class yesterday. Woke up this morning with generalized weakness, dizziness, SOB and posterior right-sided back pain. Went to her PCP hospital follow-up appointment and EKG was performed, revealing A. fib with RVR at a rate of 159. Patient was given a full dose aspirin and sent to ED for further evaluation. Was given 17 mg IV Cardizem as well as 120 mg PO Cardizem and patient converted to sinus rhythm. Patient was examined after conversion to sinus and states that she feels much better. Denies any lightheadedness, dizziness, headache, visual changes, chest pain, palpitations, SOB, abdominal pain, nausea, vomiting , bowel or bladder changes or LE swelling. Patient lives with family in [place] and remains very active. Denies any previous atrial fibrillation. Has recently reduced caffeine intake. States that she has a few ounces of wine with dinner most nights. Echo performed during previous admission (01/20/18) shows grade 1 diastolic dysfunction, EF: of 65-70% and moderate MR and aortic stenosis. Physical Exam (per Admitting): General Appearance: WD/WN, no apparent distress Head: normocephalic, atraumatic Eyes: normal inspection, PERRL, sclerae normal ENT: normal ENT inspection, hearing grossly normal, pharynx normal (Moist mucous membranes) Neck: supple, thyroid normal, no JVD, trachea midline Respiratory/Chest: chest non-tender, lungs clear, normal breath sounds, no respiratory distress, no accessory muscle use Cardiovascular: regular rate, rhythm, normal peripheral pulses, + systolic murmur Abdomen/GI: non tender, soft, no organomegaly Back: normal inspection Extremities/Musculoskelatal: normal inspection, no calf tenderness, no pedal edema Neurologic/Psych: no motor/sensory deficits, alert, normal mood/affect, oriented x 3 Skin: normal color, warm/dry, no rash
== END 2018-01-28 18:00 | disposition home or self-care (01) ==
LOC: EDBD 11:51 → C.EDA 11:52 → C.2T 14:49 → ENRESERV 15:43
PROVIDERS: ADMIT Hospitalist; ATTEND Hospitalist
DX: I48.0 Paroxysmal atrial fibrillation (principal); E86.0 Dehydration; J18.9 Pneumonia, unspecified organism; I08.0 Rheumatic disorders of both mitral and aortic valves; I10 Essential (primary) hypertension; J45.909 Unspecified asthma, uncomplicated; Z87.891 Personal history of nicotine dependence; Z85.3 Personal history of malignant neoplasm of breast; Z79.82 Long term (current) use of aspirin

== ENCOUNTER 2019-02-09 12:15 | Observation (INO) ==
[2019-02-09 12:51] LABS: Basophils # (auto) 0.04 K/uL (0-0.2); Basophils % (auto) 0.5 %; Eosinophils # (auto) 0.04 K/uL (0-0.5); Eosinophils % (auto) 0.5 %; Hematocrit (blood only) 35.3 % (37-47); Hemoglobin 11.9 g/dL (12.0-16.0); Immature Granulocytes # (auto) 0.03 K/uL (0.00-0.02); Immature Granulocytes % (auto) 0.4 %; Lymphocytes # (auto) 0.92 K/uL (1.2-3.4); Lymphocytes % (auto) 12.1 %; Mean Corpuscular Hgb Conc 33.7 g/dL (32-36); Mean Corpuscular Volume 83.6 fL (80-100); Monocytes # (auto) 0.56 K/uL (0.11-0.59); Monocytes % (auto) 7.4 %; Neutrophils # (auto) 6.01 K/uL (1.4-6.5); Neutrophils % (auto) 79.1 %; Platelet Count 240 K/uL (130-400); RDW Coefficient of Variation 17.1 % (11.5-14.5); RDW Standard Deviation 52.3 fL (36.4-46.3); Red Blood Count 4.22 M/uL (4.2-5.4)
[2019-02-09 13:05] LABS: Appearance Urine Clear (Clear); Bacteria Urine Automated 4+ (Negative); Bilirubin Urine Negative (Negative); Blood Urine Negative (Negative); Color Urine Yellow; Glucose Urine UA Negative (Negative); Ketones Urine Negative (Negative); Leukocyte Esterase Urine Negative (Negative); Nitrite Urine Positive (Negative); Protein Urine Negative (Negative); RBC Urine Automated 0-4 /hpf (0-4); Specific Gravity Urine 1.021 (1.000-1.030); Urobilinogen Urine Negative (Negative); pH Urine 6.5 (4.5-7.5)
[2019-02-09 13:16] LABS: Albumin Level 3.2 gm/dl (3.4-5.0); BUN Creatinine Ratio 22.9 (10-20); Calcium 8.7 mg/dl (8.5-10.1); Creatinine Clr Calc Pharmacy 27.4 ml/min; Est GFR (African American) 53.7; Est GFR (Non-African American) 46.3
--- NOTE | 2019-02-09 13:26 | XRay Report ---
XR chest 1V portable CLINICAL HISTORY: weakness dyspnea COMPARISON STUDY: 01/27/2018 FINDINGS: Lungs are clear. Mild emphysematous change. No focal infiltrate. IMPRESSION: Chronic change. No acute process. The above report was generated using voice recognition software. It may contain grammatical, syntax or spelling errors. Electronically signed by: Teo Newberry M.D. 02/09/2019 1:24 PM
[2019-02-09 13:27] LABS: Albumin Globulin Ratio 0.8 (0.9-2); Bilirubin,Total 0.5 mg/dl (0.2-1); Globulin 3.9 gm/dl (2.5-4.0); Total Protein 7.1 gm/dl (6.4-8.2)
[2019-02-09 13:37] LABS: INR 2.3 (0.9-1.1); Prothrombin Time 22.2 Seconds (9.0-12.0)
--- NOTE | 2019-02-09 13:51 | CT Scan Report ---
CT head/brain wo con CLINICAL HISTORY: 88 years-old Female with fatigue, weakness. Acute fatigue with weakness TECHNIQUE: Multiple axial CT images of the head were obtained without contrast. A dose lowering tech nique was utilized adhering to the principles of ALARA. CT DOSE: 788.63 mGycm COMPARISON: None. FINDINGS: No acute intracranial hemorrhage, midline shift, intracranial mass, hydrocephalus, territorial ischem ia or abnormal extra-axial collection. Age-related involutional changes with mild ex vacuo ventriculo megaly. Cerebral vascular calcifications are noted. Patchy white matter hypodensities suggest chronic microvascular ischemic disease. Ill-defined hypodensities about the left thalamus are suggestive of remote lacunar infarctions. The calvarium is intact. Prior bilateral cataract repair. The paranasal sinuses, mastoid air cells, a nd middle ear cavities are clear. IMPRESSION: No acute intracranial abnormality. The above report was generated using voice recognition software. It may contain grammatical, syntax o r spelling errors. Electronically signed by: Beau Morel M.D. 02/09/2019 1:50 PM
[2019-02-09] MEDS ORDERED: SODIUM CHLORIDE 0.9% 1000ML 500 ML IV ONE (14:16)
[2019-02-09] MEDS ORDERED: cefTRIAXone SODIUM 1,000 MG/50 ML BAG IV STA (14:16)
[2019-02-09] MEDS ORDERED: GADOBUTROL 65ML VIAL IV PRN (16:48)
[2019-02-09] MEDS ORDERED: ACETAMINOPHEN 325 MG TAB PO PRN (16:54)
[2019-02-09] MEDS ORDERED: PHARMACIST DISCHARGE MED REC CONSULT PRN (16:54)
--- NOTE | 2019-02-09 16:56 | Magnetic Resonance Report ---
MRI OF THE BRAIN WITHOUT AND WITH IV CONTRAST CLINICAL HISTORY: Slurred speech. COMPARISON STUDY: Head CT February 09, 2019. TECHNIQUE: Utilizing a 1.5 Robyn magnet and dedicated coil, multiplanar, multiecho imaging of the br ain was performed pre and postcontrast administration. IV administration of 5.5 mL of Gadavist contr ast was uneventful. FINDINGS: There are no foci of restricted diffusion to suggest acute infarct. No acute intracranial h emorrhage, midline shift or mass effect is present. Note is made of moderate atrophy which accounts f or ventricular dilatation. The basilar cisterns are patent. There are no extra-axial collections. Whi te matter T2 hyperintense foci suggest moderate small vessel disease. A few old lacunar infarcts with in the left thalamus are noted. Flow-voids for the major intracranial vessels are present. There is n o pathologic enhancement. 3.1 x 1.7 cm CSF signal intensity focus overlying the right frontoparietal convexity suggesting] cyst. This is of no significance. Calvarial signal is maintained. There is no f luid within the mastoid air cells or the sinuses. IMPRESSION: 1. No acute intracranial findings. 2. No pathologic enhancement. 3. Moderate small vessel disease. 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 Moderate atr ophy. Electronically signed by: Aravind Madrid M.D. 02/09/2019 4:55 PM
--- NOTE | 2019-02-09 17:29 | Emergency Department Note ---
Entered by Leila Alegre acting as a scribe for History of Present Illness General Chief complaint: Lethargic Stated complaint: lethargic Source: patient History of Present Illness Onset (ago): day(s) (this morning) Location: upper extremity and lower extremity Pain Consistency: + other (episode) Quality: + other (lethargy) Associated symptoms: + denies other symptoms (numbness, pain) and + other ("mashed potato mouth," feeling tired, fatigued) The patient is an 88 year old female who presents to the Emergency Room with complaints of an episode of lethargy starting this morning. The patients daughter states that this morning she called her mom since they were dropping off a car for her to go get her hair done today and when she did, she didnt so und right. She states that she asked her if she was doing okay and she said she was having a bad day. She notes that her mom sounded like she had mashed potato mouth. She states that she told her to go check on her when he got a chance. The patients daughter states that when her got there he felt like she was off and was slumped over so he called 911. She notes that the patient is complaining of feeling tired and was last night as well, but yesterday she had her aerobic swimming class. She notes that the patient has a history of stroke last may and just wanted to be sure everything is okay as she hasnt been this fatigued since her stroke. She notes that the patient does have right arm and leg weakness from the stroke and occasionally has issues with her right eye. The patient complains of being fatigued. The patient denies numbness and pain. The patients daughter notes that she is on Coumadin. Home Medications Home Medications Medication Instructions Recorded Confirmed Type acetaminophen [Tylenol] 325 mg PO Q6H PRN 02/09/19 02/09/19 History albuterol sulfate [ProAir HFA] 2 puff INHALATION BID 02/09/19 02/09/19 History amiodarone 200 mg PO QAM 02/09/19 02/09/19 History aspirin 81 mg PO QAM 02/09/19 02/09/19 History atorvastatin 20 mg PO HS 02/09/19 02/09/19 History docusate sodium [Colace] 100 mg PO BID 02/09/19 02/09/19 History fluticasone propion-salmeterol 1 puff INHALATION BID 02/09/19 02/09/19 History [Advair Diskus] furosemide 20 mg PO QAM 02/09/19 02/09/19 History lidocaine 1 patch TRANSDERMAL QAM 02/09/19 02/09/19 History metoprolol tartrate 12.5 mg PO BID 02/09/19 02/09/19 History montelukast 10 mg PO HS 02/09/19 02/09/19 History nifedipine 60 mg PO QAM 02/09/19 02/09/19 History oxybutynin chloride 10 mg PO QAM 02/09/19 02/09/19 History sennosides [Senna Lax] 8.6 mg PO BID 02/09/19 02/09/19 History warfarin 5 mg PO MOTUWETHFRSA 02/09/19 02/09/19 History warfarin 7.5 mg PO CHANG 02/09/19 02/09/19 History Allergies Allergy/AdvReac Type Severity Reaction Status Date / Time No Known Allergies Allergy Unverified 02/09/19 13:23 Past Med/Surg History Medical History Hypertension (Chronic) Asthma (Chronic) Chronic hyponatremia (Chronic) Overactive bladder (Chronic) HLD (hyperlipidemia) (Chronic) H/O malignant neoplasm of breast (Chronic) 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) CKD (chronic kidney disease), stage III (Chronic) Moderate aortic stenosis by prior echocardiogram (Chronic) Family History Other Family history non-contributory Social History Preferred Language: German Communication Ability: Effective Beliefs That Will Affect Care: None marital status: / Current Living Situation: Family Current Living Situation Comment: lives with daughter current occupational status: retired Other Information That Helps Us Care for You: No Feels Safe at Home: Yes Safety Concerns: Feels Safe At This Time Smoking Status: Former smoker Hx Alcohol Use: Yes Alcohol type: wine Hx Substance Use: No Review of Systems See HPI for pertinent positives & negatives. and A total of 10 systems reviewed and were otherwise negative Physical Exam Vital Signs Vital Signs - 24 hr 02/09/19 12:24 02/09/19 12:27 02/09/19 12:30 Temperature 36.4 C L Temperature Source Oral Sepsis Recent Fever Within 48 Hours No Sepsis New/Unexplained Change in Mental Status No Sepsis Action Taken by Nursing No Action Required Pulse Rate 62 62 62 Pulse Rate [Left Finger] Pulse Rate from SpO2 Sensor 62 62 62 Pulse Rhythm Regular Pulse Strength Normal Respiratory Rate 19 21 21 Respiratory Effort / Characteristics Non-Labored Spontaneous Respiratory Depth Normal Respiratory Pattern Blood Pressure 190/70 H Blood Pressure [Left Arm] Blood Pressure Mean 110 Blood Pressure Mean [Left Arm] Blood Pressure Position Sitting Pulse Oximetry 96 97 97 Oxygen Delivery Method Room Air 02/09/19 12:40 02/09/19 12:42 02/09/19 12:50 Temperature Temperature Source Sepsis Recent Fever Within 48 Hours Sepsis New/Unexplained Change in Mental Status Sepsis Action Taken by Nursing Pulse Rate 64 61 Pulse Rate [Left Finger] Pulse Rate from SpO2 Sensor 65 61 Pulse Rhythm Pulse Strength Respiratory Rate 18 15 Respiratory Effort / Characteristics Respiratory Depth Respiratory Pattern Blood Pressure Blood Pressure [Left Arm] Blood Pressure Mean Blood Pressure Mean [Left Arm] Blood Pressure Position Pulse Oximetry 96 96 95 Oxygen Delivery Method Room Air 02/09/19 13:00 02/09/19 13:10 02/09/19 13:20 Temperature Temperature Source Sepsis Recent Fever Within 48 Hours Sepsis New/Unexplained Change in Mental Status Sepsis Action Taken by Nursing Pulse Rate 59 L 59 L 61 Pulse Rate [Left Finger] Pulse Rate from SpO2 Sensor 60 60 61 Pulse Rhythm Pulse Strength Respiratory Rate 18 20 16 Respiratory Effort / Characteristics Respiratory Depth Respiratory Pattern Blood Pressure Blood Pressure [Left Arm] Blood Pressure Mean Blood Pressure Mean [Left Arm] Blood Pressure Position Pulse Oximetry 96 97 95 Oxygen Delivery Method 02/09/19 13:30 02/09/19 13:34 02/09/19 13:50 Temperature Temperature Source Sepsis Recent Fever Within 48 Hours Sepsis New/Unexplained Change in Mental Status Sepsis Action Taken by Nursing Pulse Rate 59 L 59 L Pulse Rate [Left Finger] 60 Pulse Rate from SpO2 Sensor 59 L 59 L Pulse Rhythm Pulse Strength Respiratory Rate 19 17 15 Respiratory Effort / Characteristics Respiratory Depth Respiratory Pattern Blood Pressure 183/79 H 189/68 H Blood Pressure [Left Arm] 183/79 H Blood Pressure Mean 113 108 Blood Pressure Mean [Left Arm] 113 Blood Pressure Position Pulse Oximetry 95 96 Oxygen Delivery Method Room Air 02/09/19 13:51 02/09/19 14:00 02/09/19 14:01 Temperature Temperature Source Sepsis Recent Fever Within 48 Hours Sepsis New/Unexplained Change in Mental Status Sepsis Action Taken by Nursing Pulse Rate 62 58 L 59 L Pulse Rate [Left Finger] Pulse Rate from SpO2 Sensor 58 L 59 L Pulse Rhythm Pulse Strength Respiratory Rate 25 H 14 18 Respiratory Effort / Characteristics Respiratory Depth Respiratory Pattern Blood Pressure Blood Pressure [Left Arm] Blood Pressure Mean Blood Pressure Mean [Left Arm] Blood Pressure Position Pulse Oximetry 96 95 Oxygen Delivery Method 02/09/19 14:10 02/09/19 14:20 02/09/19 14:30 Temperature Temperature Source Sepsis Recent Fever Within 48 Hours Sepsis New/Unexplained Change in Mental Status Sepsis Action Taken by Nursing Pulse Rate 62 59 L 58 L Pulse Rate [Left Finger] Pulse Rate from SpO2 Sensor 62 59 L 57 L Pulse Rhythm Pulse Strength Respiratory Rate 18 18 21 Respiratory Effort / Characteristics Respiratory Depth Respiratory Pattern Blood Pressure Blood Pressure [Left Arm] Blood Pressure Mean Blood Pressure Mean [Left Arm] Blood Pressure Position Pulse Oximetry 96 97 96 Oxygen Delivery Method 02/09/19 14:31 02/09/19 14:40 02/09/19 14:50 Temperature Temperature Source Sepsis Recent Fever Within 48 Hours Sepsis New/Unexplained Change in Mental Status Sepsis Action Taken by Nursing Pulse Rate 59 L 61 65 Pulse Rate [Left Finger] Pulse Rate from SpO2 Sensor 59 L 62 65 Pulse Rhythm Pulse Strength Respiratory Rate 15 14 14 Respiratory Effort / Characteristics Respiratory Depth Respiratory Pattern Blood Pressure 199/76 H Blood Pressure [Left Arm] Blood Pressure Mean 117 Blood Pressure Mean [Left Arm] Blood Pressure Position Pulse Oximetry 97 96 98 Oxygen Delivery Method 02/09/19 15:15 02/09/19 15:20 02/09/19 16:54 Temperature Temperature Source Sepsis Recent Fever Within 48 Hours Sepsis New/Unexplained Change in Mental Status Sepsis Action Taken by Nursing Pulse Rate 66 62 Pulse Rate [Left Finger] Pulse Rate from SpO2 Sensor 62 Pulse Rhythm Pulse Strength Respiratory Rate 16 20 Respiratory Effort / Characteristics Respiratory Depth Normal Respiratory Pattern Blood Pressure Blood Pressure [Left Arm] Blood Pressure Mean Blood Pressure Mean [Left Arm] Blood Pressure Position Pulse Oximetry 95 Oxygen Delivery Method 02/09/19 17:04 Temperature Temperature Source Sepsis Recent Fever Within 48 Hours Sepsis New/Unexplained Change in Mental Status Sepsis Action Taken by Nursing Pulse Rate Pulse Rate [Left Finger] Pulse Rate from SpO2 Sensor Pulse Rhythm Pulse Strength Respiratory Rate Respiratory Effort / Characteristics Non-Labored Spontaneous Respiratory Depth Normal Respiratory Pattern Regular Blood Pressure Blood Pressure [Left Arm] Blood Pressure Mean Blood Pressure Mean [Left Arm] Blood Pressure Position Pulse Oximetry Oxygen Delivery Method Room Air GENERAL: Awake, alert, well-appearing, in no distress HENT: Normocephalic, atraumatic. Oropharynx unremarkable. EYES: Normal conjunctiva. Sclera non-icteric. EOMI. PERRL. NECK: Supple. No nuchal rigidity. RESPIRATORY: Clear to auscultation. No wheezes. Normal respiratory effort. CARDIAC: Normal rate. Normal rhythm. Extremities warm and well perfused. GI: Soft, non-distended. No tenderness to palpation. No rebound or guarding. No masses. RECTAL: Deferred. MUSCULOSKELETAL: Atraumatic. Chest examination reveals no tenderness. There is no CVA tenderness to palpation. LOWER EXTREMITIES: Calves are equal size bilaterally and non-tender. No edema NEURO: Normal sensorium. No sensory or motor deficits noted. No facial droop. No slurred speech. Bilateral intact hand strength. 5/5 lower extremity strength. SKIN: Warm and dry. No rash or jaundice noted. Course 1301: The patient was evaluated in room A12B. A complete history and physical exam was performed. 1419: I reevaluated the patient and updated her and her family on her test results. I discussed the treatment plan with them. They verbally agree and understand. 1421: I discussed the patient's case with CADY Khan yulissa. She will evaluate the patient for further management. Consultations Consultation #1: I [facility] the patient's [facility] She will evaluate the patient for further management. Time: 14:21 Administered Medications Gadobutrol (Gadavist 65ml) 5.5 ml IV ONCE PRN PRN Reason: Interaction Checking Stop: 02/13/19 16:47 Last Admin: 02/09/19 16:48 Dose: 5.5 ml Documented by: [id number] Discontinued Medications Ceftriaxone Sodium (Rocephin) 1,000 mg in 50 mls @ 100 mls/hr IV NOW STA Stop: 02/09/19 14:45 Last Infusion: 02/09/19 15:19 Dose: 0 mls/hr Documented by: [id number] Admin: 02/09/19 14:22 Dose: 100 mls/hr Documented by: [id number] Sodium Chloride (Nss 1000ml) 500 mls @ 999 mls/hr IV .Q31M ONE Stop: 02/09/19 14:46 Last Infusion: 02/09/19 15:18 Dose: 0 mls/hr Documented by: [id number] Admin: 02/09/19 14:24 Dose: 999 mls/hr Documented by: [id number] Medical Decision Making Differential Diagnosis Differential Diagnosis includes but is not limited to dehydration, stroke, anemia, hypoglycemia, hyponatremia, hypernatremia, urinary tract infection, pneumonia, bronchitis, sepsis, gastroenteritis, additional abdominal pathology, metabolic abnormalities and infections. Medical Records Attestation: I reviewed the patient's medical records. Home Medications Current Medication List: was personally reviewed by me Laboratory Data Attestation: I reviewed the patient's lab results. Result diagrams: 02/09/19 12:35 02/09/19 12:35 Lab Results 02/09/19 02/09/19 02/09/19 Range/Units 12:35 12:35 12:35 WBC 7.60 (4.8-10.8) K/uL RBC 4.22 (4.2-5.4) M/uL Hgb 11.9 L (12.0-16.0) g/dL Hct 35.3 L (37-47) % MCV 83.6 (80-100) fL MCH 28.2 (25-34) pg MCHC 33.7 (32-36) g/dL RDW Std Deviation 52.3 H (36.4-46.3) fL RDW Coeff of Thu 17.1 H (11.5-14.5) % Plt Count 240 (130-400) K/uL MPV 10.0 (7.4-10.4) fL Immature Gran % (Auto) 0.4 % Neut % (Auto) 79.1 % Lymph % (Auto) 12.1 % Hitchcock % (Auto) 7.4 % Eos % (Auto) 0.5 % Baso % (Auto) 0.5 % Immature Gran # (Auto) 0.03 H (0.00-0.02) K/uL Neut # (Auto) 6.01 (1.4-6.5) K/uL Lymph # (Auto) 0.92 L (1.2-3.4) K/uL Hitchcock # (Auto) 0.56 (0.11-0.59) K/uL Eos # (Auto) 0.04 (0-0.5) K/uL Baso # (Auto) 0.04 (0-0.2) K/uL PT (9.0-12.0) Seconds INR (0.9-1.1) Sodium 139 (136-145) mmol/L Potassium 4.0 (3.5-5.1) mmol/L Chloride 107 (98-107) mmol/L Carbon Dioxide 29 (21-32) mmol/L Anion Gap 3.0 (3-11) BUN 25 H (7-18) mg/dl Creatinine 1.07 (0.6-1.2) mg/dl Est Cr Clr Drug Dosing 27.4 ml/min Est GFR ( Amer) 53.7 Est GFR (Non-Af Amer) 46.3 BUN/Creatinine Ratio 22.9 H (10-20) Glucose 117 H (70-99) mg/dl Calcium 8.7 (8.5-10.1) mg/dl Total Bilirubin 0.5 (0.2-1) mg/dl AST 17 (15-37) U/L ALT 23 (12-78) U/L Alkaline Phosphatase 71 (45-117) U/L Total Protein 7.1 (6.4-8.2) gm/dl Albumin 3.2 L (3.4-5.0) gm/dl Globulin 3.9 (2.5-4.0) gm/dl Albumin/Globulin Ratio 0.8 L (0.9-2) TSH 0.675 (0.300-4.500) uIu/ml Urine Color Yellow Urine Appearance Clear (Clear) Urine pH 6.5 (4.5-7.5) Ur Specific [place] 1.021 (1.000-1.030) Urine Protein Negative (Negative) Urine Glucose (UA) Negative (Negative) Urine Ketones Negative (Negative) Urine Blood Negative (Negative) Urine Nitrite Positive H (Negative) Urine Bilirubin Negative (Negative) Urine Urobilinogen Negative (Negative) Ur Leukocyte Esterase Negative (Negative) Urine WBC (Auto) 1-5 (0-5) /hpf Urine RBC (Auto) 0-4 (0-4) /hpf U Hyaline Cast (Auto) 1-5 (0-5) /lpf U Epithel Cells (Auto) 5-10 H (0-5) /lpf Urine Bacteria (Auto) 4+ H (Negative) 02/09/19 Range/Units 12:35 WBC (4.8-10.8) K/uL RBC (4.2-5.4) M/uL Hgb (12.0-16.0) g/dL Hct (37-47) % MCV (80-100) fL MCH (25-34) pg MCHC (32-36) g/dL RDW Std Deviation (36.4-46.3) fL RDW Coeff of Thu (11.5-14.5) % Plt Count (130-400) K/uL MPV (7.4-10.4) fL Immature Gran % (Auto) % Neut % (Auto) % Lymph % (Auto) % Hitchcock % (Auto) % Eos % (Auto) % Baso % (Auto) % Immature Gran # (Auto) (0.00-0.02) K/uL Neut # (Auto) (1.4-6.5) K/uL Lymph # (Auto) (1.2-3.4) K/uL Hitchcock # (Auto) (0.11-0.59) K/uL Eos # (Auto) (0-0.5) K/uL Baso # (Auto) (0-0.2) K/uL PT 22.2 H (9.0-12.0) Seconds INR 2.3 H (0.9-1.1) Sodium (136-145) mmol/L Potassium (3.5-5.1) mmol/L Chloride (98-107) mmol/L Carbon Dioxide (21-32) mmol/L Anion Gap (3-11) BUN (7-18) mg/dl Creatinine (0.6-1.2) mg/dl Est Cr Clr Drug Dosing ml/min Est GFR ( Amer) Est GFR (Non-Af Amer) BUN/Creatinine Ratio (10-20) Glucose (70-99) mg/dl Calcium (8.5-10.1) mg/dl Total Bilirubin (0.2-1) mg/dl AST (15-37) U/L ALT (12-78) U/L Alkaline Phosphatase (45-117) U/L Total Protein (6.4-8.2) gm/dl Albumin (3.4-5.0) gm/dl Globulin (2.5-4.0) gm/dl Albumin/Globulin Ratio (0.9-2) TSH (0.300-4.500) uIu/ml Urine Color Urine Appearance (Clear) Urine pH (4.5-7.5) Ur Specific [place] (1.000-1.030) Urine Protein (Negative) Urine Glucose (UA) (Negative) Urine Ketones (Negative) Urine Blood (Negative) Urine Nitrite (Negative) Urine Bilirubin (Negative) Urine Urobilinogen (Negative) Ur Leukocyte Esterase (Negative) Urine WBC (Auto) (0-5) /hpf Urine RBC (Auto) (0-4) /hpf U Hyaline Cast (Auto) (0-5) /lpf U Epithel Cells (Auto) (0-5) /lpf Urine Bacteria (Auto) (Negative) Imaging Data Radiologist's Impression: Radiology results as stated below per my review and the radiologist's interpretation: XR chest 1V portable CLINICAL HISTORY: weakness dyspnea COMPARISON STUDY: 01/27/2018 FINDINGS: Lungs are clear. Mild emphysematous change. No focal infiltrate. IMPRESSION: Chronic change. No acute process. The above report was generated using voice recognition software. It may contain grammatical, syntax or spelling errors. Electronically signed by: Teo Newberry M.D. 02/09/2019 1:[address] head/brain wo con CLINICAL HISTORY: 88 years-old Female with fatigue, weakness. Acute fatigue with weakness TECHNIQUE: Multiple axial CT images of the head were obtained without contrast. A dose lowering technique was utilized adhering to the principles of ALARA. CT DOSE: 788.63 mGycm COMPARISON: None. FINDINGS: No acute intracranial hemorrhage, midline shift, intracranial mass, hydrocephalus, territorial ischemia or abnormal extra-axial collection. Age- related involutional changes with mild ex vacuo ventriculomegaly. Cerebral vascular calcifications are noted. Patchy white matter hypodensities suggest chronic microvascular ischemic disease. Ill-defined hypodensities about the left thalamus are suggestive of remote lacunar infarctions. The calvarium is intact. Prior bilateral cataract repair. The paranasal sinuses, mastoid air cells, and middle ear cavities are clear. IMPRESSION: No acute intracranial abnormality. The above report was generated using voice recognition software. It may contain grammatical, syntax or spelling errors. Electronically signed by: Beau Morel M.D. 02/09/2019 1:50 PM ECG Data Attestation: I personally reviewed and interpreted this ECG as follows: Indication: weakness Rate (beats per minute): 61 Rhythm: normal sinus Findings: no PVC, no ST depression and no ST elevation Blood Pressure Blood Pressure Findings: Elevated blood pressure Blood Pressure Disposition: further management by hospitalist KHADIJAH Narrative Patient is an 88-year-old female with a history of hypertension,hyperlipidemia, atrial fibrillation on Coumadin, Coumadin CKD, and prior stroke presenting today with increased fatigue and generalized weakness today. States was well yesterda y went to water aerobics last night. Evidently got up and had coffee and started the application tester this morning. Family found her and she seemed to be garbled in her speech. Family checked on her and she was not acting her normal self. Denies any real new numbness or focal weakness. Denies pain. Endorses some generalized fatigue. Family states that she seems more tired than her normal self and not quite acting as normal. Reportedly had a stroke this past fall. Broad work-up was completed including looking for metabolic or infectious etiologies. CT of the head was completed looking for possible intercranial bleed or other abnormality. This was a normal limits. Discussed with the bertram ent possible hyperacute or small abnormality that would only be found an MRI but she is already optimized from a stroke standpoint and in discussion with her/family we will not pursue stroke work-up at this time. No significant leukocytosis is reported on laboratory studies or new anemia. Urinalysis does can certainly have signs of nitrate and bacteria. Patient has a history of overactive bladder that she states frequency is baseline. Could be contributing to her weakness. Patient feels extremely weak and again this is a sudden change today. Discussed with patient and family members and son she does not feel that she can ambulate. Given this discussed with her staying in the hospital overnight; given a dose of ceftriaxone for possible uti; urine culture sent. Hospitalist contacted. Impression & Plan Weakness, Slurred speech, Acute UTI Discharge Plan Visit Data *Final* Discharge Date/Time: 02/09/19 15:38 Chief Complaint: Lethargic Stated Complaint: lethargic ED Provider: Zeeshan Bailey Discharge Problem: Weakness, Slurred speech, Acute UTI Patient Disposition: Admitted As Inpatient Discharge Instructions Interventions: ED Discharge Assessment Last Done: 02/09/19 15:38 The scribe's documentation has been prepared under my direction and personally reviewed by me in its entirety. I confirm that the note above accurately reflects all work, treatment, procedures, and medical decision making performed by me.
--- NOTE | 2019-02-09 17:35 | History & Physical Report ---
Date of Service February 09, 2019 Assessment & Plan (1) Possible urinary tract infection: (2) Generalized weakness: -Admit to telemetry -Patient presenting from home with reports of lightheadedness, dizziness, generalized weakness, slurred speech -In the ED, UA suggest possible UTI -Head CT negative, brain MRI was checked and negative for acute findings -Symptoms likely secondary to UTI -No signs of sepsis -Received IV ceftriaxone in the ED, will continue with -Follow urine culture -Gentle IVF -PT/OT evals (3) Paroxysmal atrial fibrillation: -Currently in NSR -Rhythm controlled on amiodarone, rate controlled on metoprolol -Anticoagulated with Coumadin, INR 2.8 (4) Hypertension: -BP elevated, possibly situational -PRN hydralazine -Continue home doses of nifedipine and metoprolol for now, making adjustments as needed (5) CKD (chronic kidney disease), stage III: - baseline creat ~ 1.2 - creat noted to be 1.0 today - continue to monitor, avoid nephrotoxic agents when able (6) Asthma: -No signs of acute exacerbation -Continue home inhalers (7) HLD (hyperlipidemia): -Continue statin (8) DVT prophylaxis: -Anticoagulated on Coumadin with a therapeutic INR History of Present Illness Chief Complaint: Generalized weakness, slurred speech Primary Care Provider: Mile Bird MD 88-year-old female who presents to the ED with generalized weakness and slurred speech. Patient reports that yesterday she was feeling her usual state of health and was able to go to the [facility] for her usual water aerobics. This morning, she reports she was getting something for breakfast and she started to feel lightheaded and dizzy. Patient reports she then sat down and continue to feel lightheaded and dizzy. She spoke to her daughter on the phone and her daughter noted that her speech seemed a little slurred. She then called her to go check on her mother. He is the bedside and reports that the patient was very lethargic however arousable. There was no visible facial droop or drooling. Patient denies any unilateral weakness, numbness, tingling. She does not think she lost consciousness. Patient denies chest pain shortness of breath. No abdominal pain, nausea, vomiting, diarrhea. No other recent illnesses, fevers, chills. Patient has chronic urinary frequency which is unchanged from baseline. In the ED, cath UA suggest possible UTI. Other labs are unremarkable with the exception of a therapeutic INR 2.3. Head CT is negative for acute findings. Patient was given IVF and IV ceftriaxone. Allergies Allergy/AdvReac Type Severity Reaction Status Date / Time No Known Allergies Allergy Unverified 02/09/19 13:23 Home Medications Home Medications Medication Instructions Recorded Confirmed Type acetaminophen [Tylenol] 325 mg PO Q6H PRN 02/09/19 02/09/19 History albuterol sulfate [ProAir HFA] 2 puff INHALATION BID 02/09/19 02/09/19 History amiodarone 200 mg PO QAM 02/09/19 02/09/19 History aspirin 81 mg PO QAM 02/09/19 02/09/19 History atorvastatin 20 mg PO HS 02/09/19 02/09/19 History docusate sodium [Colace] 100 mg PO BID 02/09/19 02/09/19 History fluticasone propion-salmeterol 1 puff INHALATION BID 02/09/19 02/09/19 History [Advair Diskus] furosemide 20 mg PO QAM 02/09/19 02/09/19 History lidocaine 1 patch TRANSDERMAL QAM 02/09/19 02/09/19 History metoprolol tartrate 12.5 mg PO BID 02/09/19 02/09/19 History montelukast 10 mg PO HS 02/09/19 02/09/19 History nifedipine 60 mg PO QAM 02/09/19 02/09/19 History oxybutynin chloride 10 mg PO QAM 02/09/19 02/09/19 History sennosides [Senna Lax] 8.6 mg PO BID 02/09/19 02/09/19 History warfarin 5 mg PO MOTUWETHFRSA 02/09/19 02/09/19 History warfarin 7.5 mg PO CHANG 02/09/19 02/09/19 History Past Med/Surg History Medical History Paroxysmal atrial fibrillation (Chronic) 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, 05/2018 Asthma (Chronic) Hypertension (Chronic) Asthma (Chronic) Overactive bladder (Chronic) HLD (hyperlipidemia) (Chronic) 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) CKD (chronic kidney disease), stage III (Chronic) Family History Other Family history non-contributory Social History Preferred Language: Czech Communication Ability: Effective Beliefs That Will Affect Care: None marital status: / Current Living Situation: Family Current Living Situation Comment: lives with daughter current occupational status: retired Other Information That Helps Us Care for You: No Feels Safe at Home: Yes Safety Concerns: Feels Safe At This Time Smoking Status: Former smoker Hx Alcohol Use: Yes Alcohol type: wine Hx Substance Use: No Review of Systems Review of Systems: ROS per HPI, all other systems reviewed and negative Physical Exam Constitutional: WD/WN, vitals as above Eyes: PERRL, conjunctivae normal, anicteric sclerae ENMT: external ear and nose normal, oropharynx normal Respiratory: normal respiratory effort, lungs clear to auscultation Cardiovascular: Rate/Rhythm: regular rate and regular rhythm Vessels: normal peripheral pulses Extremities: no edema Gastrointestinal (Abdomen): normal bowel sounds, soft, nontender, no hepatosplenomegaly Musculoskeletal: no cyanosis or clubbing, extremities motor strength 5/5 Skin: no rashes, warm and dry Neurologic: PERRL, EOMI, accommodation nl, no face palsy, no dysarthria awake Speech / Cognition: normal speech Motor/Sensory: no pronator drift Cranial Nerves: tongue midline Gait: no ataxic gait Coordination: normal aobasb-vl-[id number] test and normal ynux-qf-brbj test Psychiatric: A+Ox3, euthymic affect Results & Data Vital Signs (Past 12 Hours) Vital Signs Temp Pulse Pulse Resp BP BP Pulse Ox 02/09/19 15:20 62 20 02/09/19 15:15 66 16 95 02/09/19 14:50 65 14 98 02/09/19 14:40 61 14 96 02/09/19 14:31 59 L 15 199/76 H 97 02/09/19 14:30 58 L 21 96 02/09/19 14:20 59 L 18 97 02/09/19 14:10 62 18 96 02/09/19 14:01 59 L 18 95 02/09/19 14:00 58 L 14 96 02/09/19 13:51 62 25 H 02/09/19 13:50 15 189/68 H 02/09/19 13:34 59 L 60 17 183/79 H 183/79 H 96 02/09/19 13:30 59 L 19 95 02/09/19 13:20 61 16 95 02/09/19 13:10 59 L 20 97 02/09/19 13:00 59 L 18 96 02/09/19 12:50 61 15 95 02/09/19 12:42 96 02/09/19 12:40 64 18 96 02/09/19 12:30 62 21 97 02/09/19 12:27 62 21 97 02/09/19 12:24 36.4 C L 62 19 190/70 H 96 Laboratory Results Laboratory Last Values WBC 7.60 K/uL (4.8-10.8) 02/09/19 12:35 RBC 4.22 M/uL (4.2-5.4) 02/09/19 12:35 Hgb 11.9 g/dL (12.0-16.0) L 02/09/19 12:35 Hct 35.3 % (37-47) L 02/09/19 12:35 MCV 83.6 fL (80-100) 02/09/19 12:35 MCH 28.2 pg (25-34) 02/09/19 12:35 MCHC 33.7 g/dL (32-36) 02/09/19 12:35 RDW Std Deviation 52.3 fL (36.4-46.3) H 02/09/19 12:35 RDW Coeff of Thu 17.1 % (11.5-14.5) H 02/09/19 12:35 Plt Count 240 K/uL (130-400) 02/09/19 12:35 MPV 10.0 fL (7.4-10.4) 02/09/19 12:35 Immature Gran % (Auto) 0.4 % 02/09/19 12:35 Neut % (Auto) 79.1 % 02/09/19 12:35 Lymph % (Auto) 12.1 % 02/09/19 12:35 [place] % (Auto) 7.4 % 02/09/19 12:35 Eos % (Auto) 0.5 % 02/09/19 12:35 Baso % (Auto) 0.5 % 02/09/19 12:35 Immature Gran # (Auto) 0.03 K/uL (0.00-0.02) H 02/09/19 12:35 Neut # (Auto) 6.01 K/uL (1.4-6.5) 02/09/19 12:35 Lymph # (Auto) 0.92 K/uL (1.2-3.4) L 02/09/19 12:35 [place] # (Auto) 0.56 K/uL (0.11-0.59) 02/09/19 12:35 Eos # (Auto) 0.04 K/uL (0-0.5) 02/09/19 12:35 Baso # (Auto) 0.04 K/uL (0-0.2) 02/09/19 12:35 PT 22.2 Seconds (9.0-12.0) H 02/09/19 12:35 INR 2.3 (0.9-1.1) H 02/09/19 12:35 Sodium 139 mmol/L (136-145) 02/09/19 12:35 Potassium 4.0 mmol/L (3.5-5.1) 02/09/19 12:35 Chloride 107 mmol/L (98-107) 02/09/19 12:35 Carbon Dioxide 29 mmol/L (21-32) 02/09/19 12:35 Anion Gap 3.0 (3-11) 02/09/19 12:35 BUN 25 mg/dl (7-18) H 02/09/19 12:35 Creatinine 1.07 mg/dl (0.6-1.2) 02/09/19 12:35 Est Cr Clr Drug Dosing 27.4 ml/min 02/09/19 12:35 Est GFR ( Amer) 53.7 02/09/19 12:35 Est GFR (Non-Af Amer) 46.3 02/09/19 12:35 BUN/Creatinine Ratio 22.9 (10-20) H 02/09/19 12:35 Glucose 117 mg/dl (70-99) H 02/09/19 12:35 Calcium 8.7 mg/dl (8.5-10.1) 02/09/19 12:35 Total Bilirubin 0.5 mg/dl (0.2-1) 02/09/19 12:35 AST 17 U/L (15-37) 02/09/19 12:35 ALT 23 U/L (12-78) 02/09/19 12:35 Alkaline Phosphatase 71 U/L (45-117) 02/09/19 12:35 Total Protein 7.1 gm/dl (6.4-8.2) 02/09/19 12:35 Albumin 3.2 gm/dl (3.4-5.0) L 02/09/19 12:35 Globulin 3.9 gm/dl (2.5-4.0) 02/09/19 12:35 Albumin/Globulin Ratio 0.8 (0.9-2) L 02/09/19 12:35 TSH 0.675 uIu/ml (0.300-4.500) 02/09/19 12:35 Urine Color Yellow 02/09/19 12:35 Urine Appearance Clear (Clear) 02/09/19 12:35 Urine pH 6.5 (4.5-7.5) 02/09/19 12:35 Ur Specific [place] 1.021 (1.000-1.030) 02/09/19 12:35 Urine Protein Negative (Negative) 02/09/19 12:35 Urine Glucose (UA) Negative (Negative) 02/09/19 12:35 Urine Ketones Negative (Negative) 02/09/19 12:35 Urine Blood Negative (Negative) 02/09/19 12:35 Urine Nitrite Positive (Negative) H 02/09/19 12:35 Urine Bilirubin Negative (Negative) 02/09/19 12:35 Urine Urobilinogen Negative (Negative) 02/09/19 12:35 Ur Leukocyte Esterase Negative (Negative) 02/09/19 12:35 Urine WBC (Auto) 1-5 /hpf (0-5) 02/09/19 12:35 Urine RBC (Auto) 0-4 /hpf (0-4) 02/09/19 12:35 U Hyaline Cast (Auto) 1-5 /lpf (0-5) 02/09/19 12:35 U Epithel Cells (Auto) 5-10 /lpf (0-5) H 02/09/19 12:35 Urine Bacteria (Auto) 4+ (Negative) H 02/09/19 12:35 Diagnostic Findings CXR IMPRESSION: Chronic change. No acute process. HEAD CT IMPRESSION: No acute intracranial abnormality. BRAIN MRI IMPRESSION: 1. No acute intracranial findings. 2. No pathologic enhancement. 3. Moderate small vessel disease. 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 Moderate atrophy. Code Status & VTE Plan Code Status Patient is a DNR as per my discussion with patient's daughter/POA. VTE Prophylaxis Plan VTE Prophylaxis will be ordered: Yes Supervising Physician Co-Signing Physician Notes Patient is an 88-year-old female with history of paroxysmal atrial fibrillation on chronic anticoagulation, CVA, hypertension, CKD 3 and other problems presents with history of generalized weakness and slurred speech. Also reports feeling lightheaded and dizzy. Please review HPI for complete details of presentation. Patient INR is in therapeutic range. Urinalysis is suggestive of UTI. Patient had elevated blood pressure while in ED, likely situational. MRI brain showed moderate small vessel disease, several old lacunar infarcts within the left thalamus. On exam patient is moderately built and nourished, normocephalic atraumatic, lungs are clear to auscultation, decreased breath sounds, S1-S2, positive murmur, abdomen soft nontender, no pedal edema, grossly no focal neurological deficits. Speech is clear while in ED. Patient will be admitted for management of urinary tract infection. Will start on IV Rocephin. Gentle IV fluids, follow-up urine cultures. Monitor blood pressure and adjust medications as needed for control of her blood pressure. Consider neurology evaluation and further neurological work-up if patient develops any neurological deficits during the hospital stay. I personally reviewed the record. Patient is interviewed and examined at bedside. Patient's care is coordinated with Jenelle Thomson FILM EDITOR SUPERVISOR. Please refer to the documentation above for details of patient's presentation and for discussion of other issues.
[2019-02-09] MEDS: SODIUM CHLORIDE 0.9% 1000ML 1,000 ML IV SCH (17:47)
[2019-02-09] MEDS ORDERED: HydrALAZINE HCL 20 MG/ML VIAL IV PRN (17:50)
[2019-02-09] MEDS ORDERED: WARFARIN SOD 5 MG TAB PO SCH (18:00)
[2019-02-09] MEDS: FLUTICASONE/SALMETEROL 250/50 (ADVAIR) 14 PUFF/1 INHALER INH SCH (20:48)
[2019-02-09] MEDS: SENNA 8.6 MG TAB PO SCH (20:49)
[2019-02-09] MEDS: METOPROLOL TARTRATE 25 MG TAB PO SCH (20:50)
[2019-02-09] MEDS: DOCUSATE SODIUM 100 MG CAP PO SCH (20:50)
[2019-02-09] MEDS ORDERED: MONTELUKAST SODIUM 10 MG TABLET PO SCH (21:00)
[2019-02-09] MEDS ORDERED: ATORVASTATIN 20 MG TAB PO SCH (21:00)
[2019-02-10 05:57] LABS: Basophils # (auto) 0.03 K/uL (0-0.2); Basophils % (auto) 0.5 %; Eosinophils # (auto) 0.12 K/uL (0-0.5); Hematocrit (blood only) 34.2 % (37-47); Hemoglobin 11.2 g/dL (12.0-16.0); Immature Granulocytes # (auto) 0.03 K/uL (0.00-0.02); Immature Granulocytes % (auto) 0.5 %; Lymphocytes # (auto) 1.13 K/uL (1.2-3.4); Mean Corpuscular Hgb Conc 32.7 g/dL (32-36); Mean Corpuscular Volume 83.6 fL (80-100); Mean Platelet Volume 9.5 fL (7.4-10.4); Monocytes # (auto) 0.64 K/uL (0.11-0.59); Monocytes % (auto) 10.8 %; Neutrophils % (auto) 67.2 %; Platelet Count 226 K/uL (130-400); RDW Coefficient of Variation 16.7 % (11.5-14.5); RDW Standard Deviation 51.3 fL (36.4-46.3); Red Blood Count 4.09 M/uL (4.2-5.4); White Blood Count 5.95 K/uL (4.8-10.8)
[2019-02-10 06:09] LABS: INR 2.2 (0.9-1.1); Prothrombin Time 21.5 Seconds (9.0-12.0)
[2019-02-10] MEDS: SODIUM CHLORIDE 0.9% 1000ML 1,000 ML IV SCH (06:46)
[2019-02-10 06:59] LABS: BUN Creatinine Ratio 19.8 (10-20); Calcium 8.1 mg/dl (8.5-10.1); Creatinine Clr Calc Pharmacy 29.9 ml/min; Est GFR (African American) 59.7; Est GFR (Non-African American) 51.5; Potassium 3.4 mmol/L (3.5-5.1)
[2019-02-10 07:02] VITALS: PULSE 59
[2019-02-10 07:26] VITALS: BP 143/65; TEMP 98.2
[2019-02-10] MEDS: FLUTICASONE/SALMETEROL 250/50 (ADVAIR) 14 PUFF/1 INHALER INH SCH (08:10)
[2019-02-10] MEDS: METOPROLOL TARTRATE 25 MG TAB PO SCH (08:10)
[2019-02-10] MEDS: SENNA 8.6 MG TAB PO SCH (08:12)
[2019-02-10] MEDS: DOCUSATE SODIUM 100 MG CAP PO SCH (08:12)
[2019-02-10] MEDS ORDERED: AMIODARONE 200 MG TAB PO SCH (09:00)
[2019-02-10] MEDS ORDERED: LIDOCAINE 5% 1 PATCH TD SCH (09:00)
[2019-02-10] MEDS ORDERED: NIFEdipine EXTENDED REL 30 MG TABCR PO SCH (09:00)
[2019-02-10] MEDS ORDERED: ASPIRIN 81 MG ECTAB PO SCH (09:00)
[2019-02-10] MEDS ORDERED: OXYBUTYNIN CHLORIDE XL 5 MG TABCR PO SCH (09:00)
--- NOTE | 2019-02-10 10:37 | Discharge Summary ---
Date of Service February 10, 2019 Admission HPI Per Admitting Provider 88-year-old female who presents to the ED with generalized weakness and slurred speech. Patient reports that yesterday she was feeling her usual state of health and was able to go to the [facility] for her usual water aerobics. This morning, she reports she was getting something for breakfast and she started to feel lightheaded and dizzy. Patient reports she then sat down and continue to feel lightheaded and dizzy. She spoke to her daughter on the phone and her daughter noted that her speech seemed a little slurred. She then called her to go check on her mother. He is the bedside and reports that the patient was very lethargic however arousable. There was no visible facial droop or drooling. Patient denies any unilateral weakness, numbness, tingling. She does not think she lost consciousness. Patient denies chest pain shortness of breath. No abdominal pain, nausea, vomiting, diarrhea. No other recent illnesses, fevers, chills. Patient has chronic urinary frequency which is unchanged from baseline. In the ED, cath UA suggest possible UTI. Other labs are unremarkable with the exception of a therapeutic INR 2.3. Head CT is negative for acute findings. Patient was given IVF and IV ceftriaxone. Admission Exam Per Admitting Provider Constitutional: WD/WN, vitals as above Eyes: PERRL, conjunctivae normal, anicteric sclerae ENMT: external ear and nose normal, oropharynx normal Respiratory: normal respiratory effort, lungs clear to auscultation Cardiovascular: Rate/Rhythm: regular rate and regular rhythm Vessels: normal peripheral pulses Extremities: no edema Gastrointestinal (Abdomen): normal bowel sounds, soft, nontender, no hepatosplenomegaly Musculoskeletal: no cyanosis or clubbing, extremities motor strength 5/5 Skin: no rashes, warm and dry Neurologic: PERRL, EOMI, accommodation nl, no face palsy, no dysarthria awake Speech / Cognition: normal speech Motor/Sensory: no pronator drift Cranial Nerves: tongue midline Gait: no ataxic gait Coordination: normal pibczu-ya-oghu test and normal nocg-eh-xmjn test Psychiatric: A+Ox3, euthymic affect Principal Diagnosis Weakness HTN CKD 3 HLD Discharge Exam ROS-No Headache, No Visual Changes, No Nausea, No Vomiting, No Fever, No Chills, No Neck Pain or Stiffness, No Chest Pain, No Palpitations, No SOB, No [place], No Cough, No Sputum, No Wheezing, No Abdominal Pain, No Diarrhea, No Hematemesis, No Hemoptysis, No Unexpected Weight Loss, No Flank pain, No Melena, No Hematochezia, No Frequency, No Urgency, No Burning, No Hematuria, No Rashes, No Diaphoresis. Appetite is Normal Physical Exam Gen-AAO x 3, NAD, Afebrile Head-NCAT, EOMI, PERRLA, Anicteric Sclera, No Posterior Pharyngeal Erythema Neck-Supple, No JVD, No Thyromegaly, No Masses, No LAD, No Bruits Lungs-Clear to Auscultation Bilaterally, No Rales, No Rhonchi, No Wheezing, No Crepitus Chest-No S4, +S1, +S2, No S3, No Murmurs, No Rubs, No Gallops, No Ectopy Abdomen-Soft, Bowel Sounds Present, Non Tender, Non Distended, No Hepatomegaly, No Splenomegaly, No Palpable Masses, No Rebound, No Rigidity, No Guarding Musculoskeletal-Full Range of Motion Bilaterally, No CVAT Extremities-No Cyanosis, No Clubbing, No Edema Nuero-Cranial Nerves II-XII grossly intact, Motor WNL, DTRs WNL, Strength WNL, Non Focal Psych-Normal Mood Discharge Data Allergies Allergy/AdvReac Type Severity Reaction Status Date / Time No Known Allergies Allergy Unverified 02/09/19 13:23 Consultations 02/09/19 14:24 ED Decision to Admit Stat 02/09/19 16:54 Consult Case Management - Discharge Planning Routine Consult Case Management - Discharge Planning Routine Ordered Studies 02/09/19 13:09 CT head/brain wo con Stat 02/09/19 15:23 MR brain wo/w con Routine Current Diagnoses Hyperlipidemia, unspecified (02/09/19) Essential (primary) hypertension (02/09/19) Paroxysmal atrial fibrillation (02/09/19) Unspecified asthma, uncomplicated (02/09/19) Chronic kidney disease, stage 3 (moderate) (02/09/19) Other symptoms and signs involving the genitourinary system (02/09/19) Weakness (02/09/19) Allergies No Known Allergies Allergy (Unverified 02/09/19 13:23) Height/Weight/Isolation Height 5 ft 1 in Weight 52.8 kg Chemistry 02/09/19 02/10/19 12:35 05:30 Sodium 139 141 Potassium 4.0 3.4 L Chloride 107 109 H Carbon Dioxide 29 28 Anion Gap 3.0 4.0 BUN 25 H 19 H Creatinine 1.07 0.98 Glucose 117 H 90 Urinalysis 02/09/19 12:35 Urine Color Yellow Urine Appearance Clear Urine pH 6.5 Ur Specific [place] 1.021 Urine Protein Negative Urine Glucose (UA) Negative Urine Ketones Negative Urine Blood Negative Urine Nitrite Positive H Urine Bilirubin Negative Microbiology 02/09/19 12:35 Urine,Clean Catch Urine Culture - Preliminary Escherichia coli Hospital Course (1) Possible urinary tract infection: (2) Generalized weakness: -Patient presenting from home with reports of lightheadedness, dizziness, generalized weakness, slurred speech -+ E Coli UTI, DC home on Ceftin for 5 days -Head CT negative, brain MRI was checked and negative for acute findings -Received IV ceftriaxone in the ED, will not DC on Abx -Follow urine culture (3) Paroxysmal atrial fibrillation: -Currently in NSR -Rhythm controlled on amiodarone, rate controlled on metoprolol -Anticoagulated with Coumadin (4) Hypertension: -Continue home doses of nifedipine and metoprolol for now, making adjustments as needed (5) CKD (chronic kidney disease), stage III: - baseline creat ~ 1.2 (6) Asthma: -No signs of acute exacerbation -Continue home inhalers (7) HLD (hyperlipidemia): -Continue statin (8) DVT prophylaxis: -Anticoagulated on Coumadin with a therapeutic INR Total Time Total Time Spent Total Time Spent (In Minutes): 45 mins Total Time Includes: Examination of the Patient, Discharge Planning, Medication Reconciliation and Communication With Other Providers Discharge Plan Discharge Items Patient Disposition: Home - Self-Care Reason For Visit: WEAKNESS Discharge Diagnosis: E coli UTI Condition: Good Discharge Goals: Prevent disease Activity: Resume your previous activity Lifting: Gradually increase as tolerated Bathing: No limitations Sexual Activity: When tolerated Exercise/Sports: None Driving/Machine Use: No limitations Weightbearing: Left weightbearing and Right weightbearing Non-emergency contact: Primary Care Provider Call non-emergency contact if: your symptoms worsen Follow-up/Referrals: Mile Bird MD [Primary Care Provider] - Diet: Heart Healthy Fluids: 1200ml (5 cups) Addtl Provider Instructions: routine follow up Prescriptions: New cefuroxime axetil 500 mg tablet 500 mg PO BID 5 Days Qty: 10 RF: 0 Continued fluticasone propion-salmeterol [Advair Diskus] 250-50 mcg/dose blister with device 1 puff inhalation BID RF: 0 sennosides [Senna Lax] 8.6 mg tablet 8.6 mg PO BID RF: 0 acetaminophen [Tylenol] 325 mg Tablet 325 mg PO Q6H PRN (Reason: Pain) RF: 0 atorvastatin 20 mg tablet 20 mg PO HS RF: 0 amiodarone 200 mg tablet 200 mg PO QAM RF: 0 aspirin 81 mg Tablet,Delayed Release (Dr/Ec) 81 mg PO QAM RF: 0 lidocaine 5 % adhesive patch,medicated 1 patch transdermal QAM RF: 0 warfarin 5 mg tablet 7.5 mg PO CHANG RF: 0 warfarin 5 mg tablet 5 mg PO MOTUWETHFRSA RF: 0 docusate sodium [Colace] 100 mg Capsule 100 mg PO BID RF: 0 oxybutynin chloride 5 mg tablet extended release 24hr 10 mg PO QAM RF: 0 montelukast 10 mg tablet 10 mg PO HS RF: 0 furosemide 20 mg tablet 20 mg PO QAM RF: 0 albuterol sulfate [ProAir HFA] 90 mcg/actuation HFA aerosol inhaler 2 puff inhalation BID RF: 0 nifedipine 60 mg tablet extended release 60 mg PO QAM RF: 0 metoprolol tartrate 25 mg tablet 12.5 mg PO BID RF: 0 Stand-Alone Forms: [facility] Discharge Orders: Discharge Order (Routine); Ordered 02/10/19 Ordered By: Antoine Mary Admission Data Admit Date/Time: 02/09/19 15:08 Attending Provider: Antoine Mary Admit Provider: Sander Michel Primary Care Provider: Mile Bird Other Providers: Sander Michel Service: Telemetry Medical
[2019-02-10] MEDS ORDERED: STROKE PATIENT DISCHARGE STA (10:49)
[2019-02-10 11:31] VITALS: O2SAT 93
[2019-02-10] MEDS ORDERED: cefTRIAXone SODIUM 1,000 MG in DEXTROSE 5% 50 ML IV SCH (14:00)
[2019-02-12] MEDS ORDERED: WARFARIN SOD 7.5 MG TAB PO SCH (16:00)
== END 2019-02-10 11:15 | disposition home or self-care (01) ==
LOC: ED 12:15 → 2S 12:15 → 2N 20:55

== ENCOUNTER 2019-02-14 11:54 | Inpatient (IN) ==
[2019-02-14] MEDS ORDERED: ACETAMINOPHEN 325 MG TAB PO PRN (12:37)
--- NOTE | 2019-02-14 14:11 | History & Physical Report ---
Date of Service February 14, 2019 Assessment & Plan (1) Weakness: Pt presented to [facility] with c/o generalized weakness x couple of days. Pt with hx hospital admission on 02/09/19-02/10/19 for weakness and slurred speech and had no acute changes on CT head & MRI brain. She was found to have UTI, initiall y treated with Rocephin and d/c on Ceftin. Urine culture + e.coli DDX: infection, R/O Sepsis, R/O stroke -CT head: no acute changes -CXR:no acute changes -PT/OT eval -Monitor cbc, cmp (2) Metabolic encephalopathy: Reported slurred speech on 02/09/19. Reported intermittent confusion past couple of days. DDX: infection, R/O Sepsis, R/O stroke, conversion disorder -No leukocytosis, normal lactic acid, no significant electrolyte abnormality -pending blood cultures -CT head: no acute changes -Neurology consult, appreciate recommendations -May need to consider psychiatry consult (3) Recent urinary tract infection: 02/09/19 dx UTI, initially treated with Rocephin and d/c on Ceftin. Urine culture + e.coli. Pt has 2 doses of Ceftin remaining to finish 5 day course. 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 Baseline Cr: ~1.2 -monitor renal functions -avoid nephrotoxic agents when possible (8) HLD (hyperlipidemia): -Continue atorvastatin (9) Asthma: No acute exacerbation -Continue Advair, Singulair, albuterol prn (10) Overactive bladder: -Continue oxybutynin DVT Prophylaxis -On coumadin, INR: 1.8 DNR as per discussion with pt, pt's daughter Follows with Dr Mile Bird for routine care Pt was seen with Dr Villasenor. See addendum History of Present Illness Chief Complaint: Weakness, altered mental status Primary Care Provider: Mile Bird MD Pt is 88 y/o F with PMH hemorrhagic thalamic CVA in 05/2018 with residual right sided weakness, paroxysmal atrial fibrillation on Coumadin, CKD III, asthma, breast CA s/p L lumpectomy and radiation, HTN, HLD, overactive bladder presented as direct admission from cardiology office today. Pt with hx hospital admission on 02/09/19-02/10/19 for weakness and slurred speech and had no acute changes on CT head & MRI brain. She was found to have UTI. Initially treated with Rocephin and d/c on ceftin. Urine culture + e.coli. Pt's daughter states on 02/09/19 pt had some noted slurred speech which prompted initial hospitalization. Reports since hospital discharge on 02/10/19 hasn't noticed slurred speech but has noticed pt with generalized weakness. Pt usually able to complete her ADLs herself however past 2 days needing help to get dressed. She usually only needs to use walker/cane with walking long distances and past 2 days has needed to use. Also getting weak with walking from parking lot into bpm developer's office today. Pt usually drives herself to the [facility] and participates in water aerobics a couple of times a week. Daughter reports that a couple of times pt has asked questions about date or objects and then soon states the correct answer. States this is new over the past few days. Pt states that she "just doesn't feel like herself". Denies any recent falls. Pt reports chronic urinary urgency and intermittent incontinence. Denies dysuria, hemat uria. Pt has been eating and drinking well. Reports that her brother recently. Denies fever/chills, diaphoresis, N/V/D/C, JOY, dizziness, syncope, vision changes, neck pain, CP, SOB, orthopnea, palpitations, cough, sore throat, choking, otalgia, rhinorrhea, abdominal pain, paresthesias, extremity edema, rashes. Allergies Allergy/AdvReac Type Severity Reaction Status Date / Time No Known Allergies Allergy Unverified 02/09/19 13:23 Home Medications Home Medications Medication Instructions Recorded Confirmed Type acetaminophen [Tylenol] 325 mg PO Q6H PRN 02/09/19 02/14/19 History albuterol sulfate [ProAir HFA] 2 puff INHALATION Q6H PRN 02/09/19 02/14/19 History amiodarone 200 mg PO QAM 02/09/19 02/14/19 History aspirin 81 mg PO QAM 02/09/19 02/14/19 History atorvastatin 20 mg PO HS 02/09/19 02/14/19 History docusate sodium [Colace] 100 mg PO BID 02/09/19 02/14/19 History fluticasone propion-salmeterol 1 puff INHALATION BID 02/09/19 02/14/19 History [Advair Diskus] furosemide 20 mg PO QAM 02/09/19 02/14/19 History lidocaine 1 patch TRANSDERMAL QAM 02/09/19 02/14/19 History metoprolol tartrate 12.5 mg PO BID 02/09/19 02/14/19 History montelukast 10 mg PO HS 02/09/19 02/14/19 History nifedipine 60 mg PO QAM 02/09/19 02/14/19 History oxybutynin chloride 5 mg PO QAM 02/09/19 02/14/19 History sennosides [Senna Lax] 8.6 mg PO BID 02/09/19 02/14/19 History warfarin 5 mg PO MOTUWETHFRSA 02/09/19 02/14/19 History warfarin 7.5 mg PO CHANG 02/09/19 02/14/19 History Past Med/Surg History Medical History History of breast cancer (Chronic) 1989 - s/p lumpectomy & radiation Paroxysmal atrial fibrillation (Chronic) 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, 05/2018 Asthma (Chronic) Hypertension (Chronic) Asthma (Chronic) Overactive bladder (Chronic) HLD (hyperlipidemia) (Chronic) 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) CKD (chronic kidney disease), stage III (Chronic) Surgical History History of lumpectomy of left breast (Chronic) 1989 Family History Mother Lymphoma Brother Lung cancer Social History Preferred Language: Erit[place]an Communication Ability: Effective Photographic Engineer Required: No Beliefs That Will Affect Care: None marital status: / Current Living Situation: Family Current Living Situation Comment: WITH DAUGHTER AND SON IN LAW current occupational status: retired Other Information That Helps Us Care for You: No Feels Safe at Home: Yes Safety Concerns: Feels Safe At This Time Smoking Status: Former smoker Second Hand Exposure: No Hx Alcohol Use: No Hx Substance Use: No Review of Systems Review of Systems: All systems reviewed & are unremarkable except as noted in HPI & below Physical Exam Physical Exam: General: no acute distress, WDWN, pt pleasant Head: normocephalic, atraumatic Eyes: PERRL, EOM's intact, conjunctiva non-injected, anicteric ENT: normal inspection external ears, nose, mucous membranes mildly dry Neck: supple, trachea midline, ROM intact Lungs: clear, no respiratory distress, no wheezing/rhonchi/rales CV: RRR, systolic murmur, no pretibial edema Abd: normal BS, soft, non-tender Ext: no cyanosis, no calf tenderness, right arm with decreased strength compared to right (reports this is chronic), otherwise equal braider tender strength bilaterally, legs equal strength bilaterally Neuro: A&O x 3, no focal deficits noted, normal speech, no facial drooping, normal affect Skin: warm, dry Results & Data Vital Signs (Past 12 Hours) Vital Signs Temp Pulse Pulse Resp BP Pulse Ox 02/14/19 13:44 64 02/14/19 13:39 36.6 C 68 14 180/67 H 94 Laboratory Results Short CBC 02/14/19 Range/Units 13:54 WBC 5.45 (4.8-10.8) K/uL Hgb 12.9 (12.0-16.0) g/dL Hct 38.5 (37-47) % Plt Count 319 (130-400) K/uL BMP 02/14/19 13:54 Sodium 139 Potassium 3.7 Chloride 103 Carbon Dioxide 30 BUN 28 H Creatinine 1.12 Glucose 118 H Calcium 9.5 Liver Function 02/14/19 Range/Units 13:54 Total Bilirubin 0.2 (0.2-1) mg/dl AST 18 (15-37) U/L ALT 23 (12-78) U/L Alkaline Phosphatase 71 (45-117) U/L Albumin 3.2 L (3.4-5.0) gm/dl Urine 02/14/19 Range/Units 14:37 Urine Color Yellow Urine Appearance Clear (Clear) Urine pH 5.0 (4.5-7.5) Ur Specific [place] 1.015 (1.000-1.030) Urine Protein Negative (Negative) Urine Glucose (UA) Negative (Negative) Diagnostic Findings CXR: IMPRESSION: Cardiac enlargement with no acute cardiopulmonary abnormality. CT HEAD: IMPRESSION: No acute intracranial abnormality. Supervising Physician Co-Signing Physician Notes Pt was seen and examined. Agreed with Crystal FREITAS exam, assessment and plan. 88 y/o F with PMH hemorrhagic thalamic CVA in 05/2018 with residual right sided weakness, paroxysmal atrial fibrillation on Coumadin, CKD III, asthma, breast CA s/p L lumpectomy and radiation, recently discharged on 02/10/19 for weakness and slurred speech and was treated for UTI, was sent as an direct admission from cardiology office for altered menta status. for the last few days, she has not been feeling herself. She has been feeling very weak and required more help to complete her ADL. She lost her last brother recently. Denies any chest pain, palpitation and dizziness. Denies any new medications. She was sent from cardiology office further eval. No focal neuro deficit on exam Will check UA and urine cx. Will get a CT head. Consider neurology consult if mental status does not improve. If r/o any neurology/or infectious etiology, consider psych consult. MD Jacklyn
[2019-02-14 14:14] LABS: Basophils # (auto) 0.04 K/uL (0-0.2); Basophils % (auto) 0.7 %; Eosinophils # (auto) 0.02 K/uL (0-0.5); Eosinophils % (auto) 0.4 %; Hematocrit (blood only) 38.5 % (37-47); Hemoglobin 12.9 g/dL (12.0-16.0); Immature Granulocytes # (auto) 0.07 K/uL (0.00-0.02); Immature Granulocytes % (auto) 1.3 %; Lymphocytes # (auto) 1.04 K/uL (1.2-3.4); Lymphocytes % (auto) 19.1 %; Mean Corpuscular Hgb Conc 33.5 g/dL (32-36); Mean Corpuscular Volume 83.7 fL (80-100); Mean Platelet Volume 9.9 fL (7.4-10.4); Monocytes # (auto) 0.31 K/uL (0.11-0.59); Monocytes % (auto) 5.7 %; Neutrophils # (auto) 3.97 K/uL (1.4-6.5); Neutrophils % (auto) 72.8 %; Platelet Count 319 K/uL (130-400); RDW Coefficient of Variation 16.6 % (11.5-14.5); White Blood Count 5.45 K/uL (4.8-10.8)
[2019-02-14 14:22] LABS: INR 1.8 (0.9-1.1); Partial Thromboplastin Ratio 1.2; Prothrombin Time 17.8 Seconds (9.0-12.0)
[2019-02-14 14:32] LABS: Albumin Level 3.2 gm/dl (3.4-5.0); BUN Creatinine Ratio 24.9 (10-20); Calcium 9.5 mg/dl (8.5-10.1); Creatinine Clr Calc Pharmacy 27.5 ml/min; Est GFR (African American) 50.8; Est GFR (Non-African American) 43.8; Potassium 3.7 mmol/L (3.5-5.1)
[2019-02-14 14:35] LABS: Albumin Globulin Ratio 0.7 (0.9-2); Bilirubin,Total 0.2 mg/dl (0.2-1); Globulin 4.3 gm/dl (2.5-4.0); Total Protein 7.5 gm/dl (6.4-8.2)
[2019-02-14 15:03] LABS: Appearance Urine Clear (Clear); Bilirubin Urine Negative (Negative); Color Urine Yellow; Glucose Urine UA Negative (Negative); Ketones Urine Negative (Negative); Leukocyte Esterase Urine Negative (Negative); Nitrite Urine Negative (Negative); Protein Urine Negative (Negative); Specific Gravity Urine 1.015 (1.000-1.030); Urobilinogen Urine Negative (Negative)
--- NOTE | 2019-02-14 15:20 | CT Scan Report ---
CT head/brain wo con CLINICAL HISTORY: 88 years-old Female with altered mental status. Acutely altered mental status TECHNIQUE: Multiple axial CT images of the head were obtained without contrast. A dose lowering tech nique was utilized adhering to the principles of ALARA. CT DOSE: 638.56 mGycm COMPARISON: CT head 02/09/2019. FINDINGS: No acute intracranial hemorrhage, midline shift, intracranial mass, hydrocephalus, territorial ischem ia or abnormal extra-axial collection. Age-related involutional changes with mild ex vacuo ventriculo megaly. Cerebral vascular calcifications are noted. Patchy white matter hypodensities suggest chronic microvascular ischemic disease. Ill-defined hypodensities about the left thalamus are suggestive of remote lacunar infarctions. The calvarium is intact. Prior bilateral cataract repair. The paranasal sinuses, mastoid air cells, a nd middle ear cavities are clear. IMPRESSION: No acute intracranial abnormality. The above report was generated using voice recognition software. It may contain grammatical, syntax o r spelling errors. Electronically signed by: Beau Morel M.D. 02/14/2019 3:19 PM
--- NOTE | 2019-02-14 15:24 | XRay Report ---
SINGLE VIEW CHEST CLINICAL HISTORY: Change in mental status. FINDINGS: An AP, portable, upright chest radiograph is compared to study dated 02/09/2019 and correlate d with chest CT dated 01/27/2018. The examination is degraded by portable technique and patient rotati on. The heart is enlarged and there is atherosclerotic calcification of the thoracic aorta. The pulm onary vasculature is noncongested. Chronic interstitial thickening is similar to previous. There is b ibasilar scarring/atelectasis. No airspace consolidation or large pleural effusion is identified. No pneumothorax is seen. The skeletal structures are osteopenic. The bony thorax is grossly intact. IMPRESSION: Cardiac enlargement with no acute cardiopulmonary abnormality. Electronically signed by: Ron Caceres M.D. 02/14/2019 3:23 PM
[2019-02-14] MEDS ORDERED: ALBUTEROL HFA 8 GM INHALER INH PRN (15:53)
[2019-02-14] MEDS ORDERED: WARFARIN SOD 5 MG TAB PO SCH (16:00)
[2019-02-14] MEDS: FLUTICASONE/SALMETEROL 250/50 (ADVAIR) 14 PUFF/1 INHALER INH SCH (20:16)
[2019-02-14] MEDS: cefUROXime axetil 500 MG TAB PO SCH (20:17)
[2019-02-14] MEDS: METOPROLOL TARTRATE 25 MG TAB PO SCH (20:17)
[2019-02-14] MEDS: DOCUSATE SODIUM 100 MG CAP PO SCH (20:18)
[2019-02-14] MEDS: SENNA 8.6 MG TAB PO SCH (20:18)
[2019-02-14] MEDS ORDERED: MONTELUKAST SODIUM 10 MG TABLET PO SCH (21:00)
[2019-02-14] MEDS ORDERED: ATORVASTATIN 20 MG TAB PO SCH (21:00)
[2019-02-15 06:35] LABS: Hematocrit (blood only) 37.6 % (37-47); Hemoglobin 12.3 g/dL (12.0-16.0); Mean Corpuscular Hgb Conc 32.7 g/dL (32-36); Mean Corpuscular Volume 83.9 fL (80-100); Mean Platelet Volume 9.5 fL (7.4-10.4); Platelet Count 301 K/uL (130-400); RDW Coefficient of Variation 16.5 % (11.5-14.5); RDW Standard Deviation 50.4 fL (36.4-46.3); Red Blood Count 4.48 M/uL (4.2-5.4); White Blood Count 5.56 K/uL (4.8-10.8)
[2019-02-15 06:44] LABS: INR 1.8 (0.9-1.1); Prothrombin Time 17.9 Seconds (9.0-12.0)
[2019-02-15 07:10] LABS: BUN Creatinine Ratio 21.9 (10-20); Creatinine Clr Calc Pharmacy 26.7 ml/min; Est GFR (African American) 49.2; Est GFR (Non-African American) 42.4; Potassium 3.6 mmol/L (3.5-5.1)
[2019-02-15] MEDS: FLUTICASONE/SALMETEROL 250/50 (ADVAIR) 14 PUFF/1 INHALER INH SCH (08:01)
[2019-02-15] MEDS: DOCUSATE SODIUM 100 MG CAP PO SCH (08:02)
[2019-02-15] MEDS: cefUROXime axetil 500 MG TAB PO SCH (08:02)
[2019-02-15] MEDS: SENNA 8.6 MG TAB PO SCH (08:02)
[2019-02-15] MEDS: METOPROLOL TARTRATE 25 MG TAB PO SCH (08:03)
[2019-02-15] MEDS ORDERED: LIDOCAINE 5% 1 PATCH TD SCH (09:00)
[2019-02-15] MEDS ORDERED: ASPIRIN 81 MG ECTAB PO SCH (09:00)
[2019-02-15] MEDS ORDERED: OXYBUTYNIN CHLORIDE XL 5 MG TABCR PO SCH (09:00)
[2019-02-15] MEDS ORDERED: AMIODARONE 200 MG TAB PO SCH (09:00)
[2019-02-15] MEDS ORDERED: NIFEdipine EXTENDED REL 30 MG TABCR PO SCH (09:00)
--- NOTE | 2019-02-15 09:34 | Hospitalist Progress Note ---
Date of Service February 15, 2019 Assessment & Plan (1) Weakness: Pt presented to [facility] with c/o generalized weakness x couple of days. Pt with hx hospital admission on 02/09/19-02/10/19 for weakness and slurred speech and had no acute changes on CT head & MRI brain. She was found to have UTI, initiall y treated with Rocephin and d/c on Ceftin. Urine culture + e.coli Was referred from cardiology office as a direct admissionfor generalized weakness unable to take care of ADLS Initially there was a concern for metabolic encephalopathy, however on admission her mental status was at baseline- awake, alert, oriented x 3. -No signs of sepsis, no leukocytosis, UAnegative. CXR- No pneumonia, CT head- no acute abnormalities. Had MRI Brain, CT head, CXR with no sig abnormalities just few days ago during last admission. Blood cx x 2-pending -Likely physical deconditioning/ Grief - recent family member- brothers -PT/OT ordered-- cleared for home, near her baseline (2) Recent urinary tract infection: 02/09/19 dx UTI, initially treated with Rocephin and d/c on Ceftin. Urine culture + e.coli. Pt has 2 doses of Ceftin remaining to finish 5 day course. 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 Baseline Cr: ~1.2 -monitor renal functions -avoid nephrotoxic agents when possible (7) HLD (hyperlipidemia): -Continue atorvastatin (8) Asthma: No acute exacerbation -Continue Advair, Singulair, albuterol prn (9) Overactive bladder: -Continue oxybutynin DVT Prophylaxis -On coumadin, INR: 1.8 DNR as per discussion with pt, pt's daughter DISPOSITION Cleared for discharge to home Eager to be discharged Updated daughter by bedside. Will take her home Follows with Dr Mile Bird for routine care Subjective Patient is awake, alert, oriented x 3. Feeling much better. Denies any suicidal ideation but sad about her brothers recent demise. No chest pain, SOB, fever, chills, nausea, vomiting, urinary symptoms. Eager to be discharged Physical Exam Physical Exam: GENERAL- AAOX3, No acute distress NECK- Supple, no JVD LUNGS- Air entry bilaterally equal. No rales, rhonchi, crackles, wheezes heard. HEART- Regular rate and rhythm. No murmurs ABDOMEN- Soft, non tender, non distended, Bowel sounds heard. EXTREMITIES- Good peripheral pulses, no edema NEUROMUSCULAR- AAOX3, Grossly no focal deficits Results & Data Vital Signs (Past 12 Hours) Vital Signs Temp Pulse Pulse Resp BP Pulse Ox 02/15/19 07:41 36.6 C 86 17 175/74 H 92 02/15/19 03:08 36.6 C 54 L 18 136/68 96 02/15/19 01:04 59 L 02/14/19 23:21 36.7 C 58 L 16 115/54 L 95
--- NOTE | 2019-02-15 11:44 | Discharge Summary ---
Date of Service February 15, 2019 Admission HPI Per Admitting Provider Pt is 88 y/o F with PMH hemorrhagic thalamic CVA in 05/2018 with residual right sided weakness, paroxysmal atrial fibrillation on Coumadin, CKD III, asthma, breast CA s/p L lumpectomy and radiation, HTN, HLD, overactive bladder presented as direct admission from cardiology office today. Pt with hx hospital admission on 02/09/19-02/10/19 for weakness and slurred speech and had no acute changes on CT head & MRI brain. She was found to have UTI. Initially treated with Rocephin and d/c on ceftin. Urine culture + e.coli. Pt's daughter states on 02/09/19 pt had some noted slurred speech which prompted initial hospitalization. Reports since hospital discharge on 02/10/19 hasn't noticed slurred speech but has noticed pt with generalized weakness. Pt usually able to complete her ADLs herself however past 2 days needing help to get dressed. She usually only needs to use walker/cane with walking long distances and past 2 days has needed to use. Also getting weak with walking from parking lot into bulldozer engineer's office today. Pt usually drives herself to the [employer] and participates in water aerobics a couple of times a week. Daughter reports that a couple of times pt has asked questions about date or objects and then soon st ates the correct answer. States this is new over the past few days. Pt states that she "just doesn't feel like herself". Denies any recent falls. Pt reports chronic urinary urgency and intermittent incontinence. Denies dysuria, hematuria. Pt has been eating and drinking well. Reports that her brother recently. Denies fever/chills, diaphoresis, N/V/D/C, JOY, dizziness, syncope, vision changes, neck pain, CP, SOB, orthopnea, palpitations, cough, sore throat, choking, otalgia, rhinorrhea, abdominal pain, paresthesias, extremity edema, rashes. Principal Diagnosis 1. Generalized weakness, Ruled out acute conditions 2. Grief secondary to brothers demise Secondary diagnosis on discharge 1. Recent UTI 2. Hx of CVA 3. Paroxysmal A fib 4. HTN 5. HLD 6. Hx of asthma Discharge Data Allergies Allergy/AdvReac Type Severity Reaction Status Date / Time No Known Allergies Allergy Unverified 02/09/19 13:23 Consultations 02/14/19 12:40 Consult Case Management - Discharge Planning Routine Ordered Studies 02/14/19 14:08 CT head/brain wo con Urgent Hospital Course (1) Weakness: Pt presented to [facility] with c/o generalized weakness x couple of days. Pt with hx hospital admission on 02/09/19-02/10/19 for weakness and slurred speech and had no acute changes on CT head & MRI brain. She was found to have UTI, initially treated with Rocephin and d/c on Ceftin. Urine culture + e.coli Was referred from cardiology office as a direct admissionfor generalized weakness unable to take care of ADLS Initially there was a concern for metabolic encephalopathy, however on admission her mental status was at baseline- awake, alert, oriented x 3. -No signs of sepsis, no leukocytosis, UAnegative. CXR- No pneumonia, CT head- no acute abnormalities. Had MRI Brain, CT head, CXR with no sig abnormalities just few days ago during last admission. Blood cx x 2-pending -Likely physical deconditioning/ Grief - recent family member- brothers -PT/OT ordered-- cleared for home, near her baseline (2) Recent urinary tract infection: 02/09/19 dx UTI, initially treated with Rocephin and d/c on Ceftin. Urine culture + e.coli. Pt has 2 doses of Ceftin remaining to finish 5 day course. 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 Baseline Cr: ~1.2 -monitor renal functions -avoid nephrotoxic agents when possible (7) HLD (hyperlipidemia): -Continue atorvastatin (8) Asthma: No acute exacerbation -Continue Advair, Singulair, albuterol prn (9) Overactive bladder: -Continue oxybutynin DVT Prophylaxis -On coumadin, INR: 1.8 DNR as per discussion with pt, pt's daughter DISPOSITION Cleared for discharge to home Eager to be discharged Updated daughter by bedside. Will take her home Follows with Dr Mile Bird for routine care Total Time Total Time Spent Total Time Spent (In Minutes): 25 minutes Discharge Plan Discharge Items Patient Disposition: Home - Self-Care Reason For Visit: AMS Discharge Diagnosis: Generalized weakness, acute conditions ruled out Grief Discharge Goals: Decrease discomfort Activity: Resume your previous activity Non-emergency contact: Primary Care Provider Call non-emergency contact if: your symptoms worsen Follow-up/Referrals: Margarette Anguiano [Other] - 02/20/19 12:45 pm Diet: Low Sodium (2gm) Addtl Provider Instructions: MEDICATION CHANGES: No changes made to your medical regimen Prescriptions: Continued fluticasone propion-salmeterol [Advair Diskus] 250-50 mcg/dose blister with device 1 puff inhalation BID RF: 0 sennosides [Senna Lax] 8.6 mg tablet 8.6 mg PO BID RF: 0 acetaminophen [Tylenol] 325 mg Tablet 325 mg PO Q6H PRN (Reason: Pain) RF: 0 atorvastatin 20 mg tablet 20 mg PO HS RF: 0 amiodarone 200 mg tablet 200 mg PO QAM RF: 0 aspirin 81 mg Tablet,Delayed Release (Dr/Ec) 81 mg PO QAM RF: 0 lidocaine 5 % adhesive patch,medicated 1 patch transdermal QAM RF: 0 warfarin 5 mg tablet 7.5 mg PO CHANG RF: 0 warfarin 5 mg tablet 5 mg PO MOTUWETHFRSA RF: 0 docusate sodium [Colace] 100 mg Capsule 100 mg PO BID RF: 0 oxybutynin chloride 5 mg tablet extended release 24hr 5 mg PO QAM RF: 0 montelukast 10 mg tablet 10 mg PO HS RF: 0 furosemide 20 mg tablet 20 mg PO QAM RF: 0 albuterol sulfate [ProAir HFA] 90 mcg/actuation HFA aerosol inhaler 2 puff inhalation Q6H PRN (Reason: Shortness Of Breath Or Wheezing) RF: 0 nifedipine 60 mg tablet extended release 60 mg PO QAM RF: 0 metoprolol tartrate 25 mg tablet 12.5 mg PO BID RF: 0 Stand-Alone Forms: [facility] Discharge Orders: Discharge Order (Routine); Ordered 02/15/19 Ordered By: Adele Bird Admission Data Admit Date/Time: 02/14/19 12:58 Attending Provider: Adele Bird Admit Provider: Elkin Villasenor Primary Care Provider: Mile Bird Service: Telemetry Other Pending Studies at Discharge: No
[2019-02-19] MEDS ORDERED: WARFARIN SOD 7.5 MG TAB PO SCH (16:00)
== END 2019-02-15 12:50 | disposition home or self-care (01) | DRG 882 ==
LOC: 2S 12:58 → SUATTDRO 12:58